=== PATIENT | female | born 1950 | race Caucasian/White ===

== ENCOUNTER → 2016-05-09 | Outpatient (CLI) | payer OTHER ==
[2016-05-09 13:58] LABS: ESTIMATED AVERAGE GLUCOSE 143 mg/dl; HA1C FLAG Normal (Normal)
[2016-05-09 14:45] LABS: CHOLESTEROL/HDL RATIO 3.8; THYROID STIMULATING HORMONE 4.62 uIu/ml (0.300-4.500)
== END | disposition home or self-care (01) ==
LOC: C.LAB1850 12:08
PROVIDERS: ATTEND Internal Medicine Endocrinology, Diabetes & Metabolism
DX: E11.9 Type 2 diabetes mellitus without complications (principal)

== ENCOUNTER → 2016-09-24 | Outpatient (CLI) | payer OTHER ==
[2016-09-24 13:44] LABS: ESTIMATED AVERAGE GLUCOSE 151 mg/dl; HA1C FLAG Normal (Normal)
[2016-09-24 14:19] LABS: CHOLESTEROL/HDL RATIO 3.6; THYROID STIMULATING HORMONE 1.32 uIu/ml (0.300-4.500)
== END | disposition home or self-care (01) ==
LOC: C.LAB1850 12:17
PROVIDERS: ATTEND Physician Assistant
DX: E11.9 Type 2 diabetes mellitus without complications (principal)

== ENCOUNTER → 2017-08-04 | Outpatient (CLI) | payer OTHER ==
[2017-08-05 10:26] LABS: HEMOGLOBIN A1C 8.6 % (4.5-5.6)
== END | disposition home or self-care (01) ==
LOC: C.LAB1850 15:06
PROVIDERS: ATTEND Physician Assistant
DX: E11.9 Type 2 diabetes mellitus without complications (principal); E78.5 Hyperlipidemia, unspecified

== ENCOUNTER 2024-01-06 10:37 | Inpatient (IN) ==
--- NOTE | 2024-01-05 08:37 | Anesthesiology Consultation ---
Date of Service January 05, 2024 Assessment & Plan (1) Encounter for pre-operative examination: Chart Review Chart Review: Acceptable Risk for Surgery (pending DOS labs ) and Patient NOT seen in Pre Admission Testing - Check CBC with diff and PRP stat DOS (not done preoperatively) - Check BSG AM DOS Patient with recent pRCA cardiac stent 09/04/23- on DAPT- denies SOB with stairs as of PAT nursing interview 12/29/23. Last seen by cardio 10/09/23- cardio aware of carotid disease and that patient following with Dr. Gonzalez. Discussed with Dr. Bah- due to nature of procedure- patient can proceed as scheduled -Ozempic instructions: Patient informed by PAT nursing to stop 7 days prior to surgery. Patient advised by PAT nursing to check with prescriber to see if alternative diabetic management changes recommended while holding Ozempic- if so, patient to call back to PAT to update chart and discuss if any further preop medication instructions needed. Last dose of Ozempic 12/24/23- will be off Ozempic x 13 days by DOS on 01/06/24 -Infectious Disease screening: Per PAT nursing assessment on 12/29/23. No known infectious disease contacts in past 10 days or current infectious disease symptoms. No recent travel outside the country. Seen by cardio 10/09/23= seen for follow up. Patient post [facility] 09/04/23 with pRCA cardiac stent. Patient with history of CAD, PAD, carotid stenosis, HLD, vertigo. Continue with DAPT x 1 year- will swtich to ASA and vascular dose Xarelto at that time. Patient will see Dr. Gonzalez in two weeks for carotid as well as PAD. Follow up in three months History Surgery Operation Date: 01/06/24 13:00 Proposed Procedures p Right Transcarotid Artery Revascularization - Sanya Gonzalez MD Height/Weight Height: 5 ft 6 in Weight: 100.698 kg Allergies Allergy/AdvReac Type Severity Reaction Status Date / Time metformin Allergy Nausea Verified 12/29/23 11:11 wheat Allergy throat Verified 12/29/23 11:11 tightness erythromycin base AdvReac Nausea Verified 12/29/23 11:11 Medications Home Medications Medication Instructions Recorded Confirmed Last Taken aspirin 81 mg tablet 81 mg PO QAM 12/07/18 12/29/23 Unknown cholecalciferol (vitamin D3) 50 2,000 units PO HS #1 cap 12/07/18 12/29/23 Unknown mcg (2,000 unit) capsule citalopram 20 mg tablet 20 mg PO HS 12/07/18 12/29/23 Unknown clopidogrel 75 mg tablet 75 mg PO QAM 12/07/18 12/29/23 Unknown lancets 25 gauge #100 ea 12/07/18 08/27/23 Unknown atenolol 25 mg tablet 12.5 mg PO BID 08/06/20 12/29/23 Unknown gabapentin 300 mg capsule 300 - 600 mg PO UD 07/15/21 12/29/23 Unknown potassium chloride 10 mEq 10 meq PO HS 07/15/21 12/29/23 Unknown capsule,extended release venlafaxine 37.5 mg 37.5 mg PO HS 07/31/22 12/29/23 Unknown capsule,extended release 24 hr magnesium oxide 800 mg PO Q2D 12/16/22 12/29/23 Unknown pen needle, diabetic 32 gauge x #500 ea 07/24/23 08/27/23 Unknown 5/32" (BD Ultra-Fine Rebeca Pen Needle) OneTouch Ultra Test (blood sugar #100 ea 08/18/23 08/27/23 Unknown diagnostic) blood-glucose sensor (Dexcom G7 08/27/23 08/27/23 Unknown Sensor device) fenofibrate nanocrystallized 145 145 mg PO HS 08/27/23 12/29/23 Unknown mg tablet insulin aspart U-100 100 unit/mL 1 sliding scale dose subcut .with 08/27/23 12/29/23 Unknown (3 mL) subcutaneous pen (Novolog meals #15 mL FlexPen U-100 Insulin aspart) levothyroxine 50 mcg tablet 50 mcg PO QAM 90 days #90 tabs 08/27/23 12/29/23 Unknown nitroglycerin 0.4 mg sublingual 0.4 mg sublingual UD PRN Chest Pain 08/27/23 12/29/23 Unknown tablet semaglutide 0.25 mg or 0.5 mg (2 0.5 mg (0.736 mL) subcut Q7D 30 11/25/23 12/29/23 Unknown mg/3 mL) subcutaneous pen injector days #3 mL (Ozempic) cyanocobalamin (vitamin B-12) 1,000 mcg PO HS 12/29/23 12/29/23 Unknown 1,000 mcg tablet (Vitamin B-12) insulin glargine 100 unit/mL (3 36 unit subcut HS 12/29/23 12/29/23 Unknown mL) subcutaneous pen (Basaglar KwikPen U-100 Insulin) losartan 50 mg-hydrochlorothiazide 1 tab PO HS 12/29/23 12/29/23 Unknown 12.5 mg tablet pantoprazole 40 mg tablet,delayed 40 mg PO HS 12/29/23 12/29/23 Unknown release rosuvastatin 40 mg tablet 40 mg PO HS 12/29/23 12/29/23 Unknown Past Medical History Medical History (Updated 01/05/24 @ 08:35 by Anabell Atkinson PA-C) Anxiety CAD (coronary artery disease) s/p mid RCA stent 2009 s/p stent to RCA 09/04/23 (also with moderate 50% LAD disease in mid vessel) Carotid artery disease Per 12/11/23 neck CTA "at least 90% stenosis with near occlusion involving the proximal cervical segments of the internal carotid arteries bilaterally, right greater than left." Depression Diabetes mellitus type 2, insulin dependent Diabetic peripheral neuropathy Dyslipidemia GERD (gastroesophageal reflux disease) History of paresthesia Hypertension PAD (peripheral artery disease) - carotid and lower extremity artery disease Subclinical hypothyroidism Past Surgical History Surgical History History of bilateral tubal ligation History of esophagogastroduodenoscopy (EGD) Hx laparoscopic cholecystectomy Hx of cardiac cath 05/09/09, "felt a burning feeling in chest/back," [facility] [place], x1 stent 09/04/23, abn stress test, [facility], x1 stent; f/u dr. davidson, ps cardio Hx of section Hx of colonoscopy Hx of heart artery stent 05/09/09, "felt a burning feeling in chest/back," [facility] [place], x1 stent 09/04/23, abn stress test, [facility], x1 stent; f/u dr. davidson, ps cardio Social History Smoking Status: Former smoker Do You Dip or Chew Tobacco: No Smoking End Date: years ago Hx Alcohol Use: No Hx Substance Use: No substance use type: does not use Testing Electrocardiogram Date: 10/09/23 Findings: + NSR @ (84bpm) Normal EKG per cardio Echocardiogram Date: 04/30/23 EF: 55-60% LV Function: normal Other Findings: + LVH (borderline/concentric) and + diastolic dysfunction (Grade I ) Unable to adequately estimate pulmonary artery pressure Stress Test Date: 04/30/23 Type: nuclear Based upon EKG criteria, this test is negative. Based upon the nuclear imaging findings there is inferior wall ischemia. It has changed from previous studies. Study is moderately abnormal (Had subsequent cardiac cath 09/04/23 (report unavailable) with placement of pRCA stent) Other Testing Neck CTA 12/11/23= Advanced atherosclerosis of the carotid bulbs results in high- grade narrowing of the proximal cervical segments bilaterally, right greater than left. Focal area of high-grade stenosis involves the V2 segment right vertebral artery at the level of the C4-C5 disc space, likely secondary to a lateral annular disc bulge.
--- NOTE | 2024-01-06 10:12 | History & Physical Report ---
Date of Service January 06, 2024 Assessment & Plan (1) Stenosis of right carotid artery: Plan: Patient admitted for a tcar. I have discussed the risks options and benefits of the procedure with the patient. The patient understands the risks options and benefits and agrees to the procedure. History of Present Illness Chief Complaint: Right internal carotid artery stenosis Primary Care Provider: Mahad Davis MD Ms. 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 Patient states that she developed pain in her low back and in her "sciatica" which then shoots down her legs when she is standing upright to ambulate. If she is at the grocery store and has a cart to lean on, she is able to finish her grocery shopping without any problems. She also admits some severe chronic numbness and tingling in her lower legs and feet which is clearly related to her diabetes control, as it is worse when her blood sugars are out of control and improved when they are controlled. She denies any discoloration of the feet or toes, wounds on the feet or toes, rest pain, or other concerns. She denies any symptoms of cerebrovascular insufficiency including amaurosis, unilateral extremity weakness numbness or tingling, difficulty speaking or swallowing, facial droop, sudden onset confusion. She also denies headache, fever, chest pain, shortness of breath, abdominal pain, nausea, vomiting, other concerns. 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 Allergies Allergy/AdvReac Type Severity Reaction Status Date / Time metformin Allergy Nausea Verified 12/29/23 11:11 wheat Allergy throat Verified 12/29/23 11:11 tightness erythromycin base AdvReac Nausea Verified 12/29/23 11:11 Home Medications Medication Instructions Recorded Confirmed Type aspirin 81 mg tablet 81 mg PO QAM 12/07/18 12/29/23 History cholecalciferol (vitamin D3) 50 2,000 units PO HS #1 cap 12/07/18 12/29/23 History mcg (2,000 unit) capsule citalopram 20 mg tablet 20 mg PO HS 12/07/18 12/29/23 History clopidogrel 75 mg tablet 75 mg PO QAM 12/07/18 12/29/23 History lancets 25 gauge #100 ea 12/07/18 08/27/23 History atenolol 25 mg tablet 12.5 mg PO BID 08/06/20 12/29/23 History gabapentin 300 mg capsule 300 - 600 mg PO UD 07/15/21 12/29/23 History potassium chloride 10 mEq 10 meq PO HS 07/15/21 12/29/23 History capsule,extended release venlafaxine 37.5 mg 37.5 mg PO HS 07/31/22 12/29/23 History capsule,extended release 24 hr magnesium oxide 800 mg PO Q2D 12/16/22 12/29/23 History pen needle, diabetic 32 gauge x #500 ea 07/24/23 08/27/23 Rx 5/32" (BD Ultra-Fine Rebeca Pen Needle) OneTouch Ultra Test (blood sugar #100 ea 08/18/23 08/27/23 Rx diagnostic) blood-glucose sensor (Dexcom G7 08/27/23 08/27/23 History Sensor device) fenofibrate nanocrystallized 145 145 mg PO HS 08/27/23 12/29/23 History mg tablet insulin aspart U-100 100 unit/mL 1 sliding scale dose subcut .with 08/27/23 12/29/23 Rx (3 mL) subcutaneous pen (Novolog meals #15 mL FlexPen U-100 Insulin aspart) levothyroxine 50 mcg tablet 50 mcg PO QAM 90 days #90 tabs 08/27/23 12/29/23 Rx nitroglycerin 0.4 mg sublingual 0.4 mg sublingual UD PRN Chest Pain 08/27/23 12/29/23 History tablet semaglutide 0.25 mg or 0.5 mg (2 0.5 mg (0.736 mL) subcut Q7D 30 11/25/23 12/29/23 Rx mg/3 mL) subcutaneous pen injector days #3 mL (Ozempic) cyanocobalamin (vitamin B-12) 1,000 mcg PO HS 12/29/23 12/29/23 History 1,000 mcg tablet (Vitamin B-12) insulin glargine 100 unit/mL (3 36 unit subcut HS 12/29/23 12/29/23 History mL) subcutaneous pen (Basaglar KwikPen U-100 Insulin) losartan 50 mg-hydrochlorothiazide 1 tab PO HS 12/29/23 12/29/23 History 12.5 mg tablet pantoprazole 40 mg tablet,delayed 40 mg PO HS 12/29/23 12/29/23 History release rosuvastatin 40 mg tablet 40 mg PO HS 12/29/23 12/29/23 History Past Med/Surg History Problem List (Updated 01/06/24 @ 10:12 by Sanya Gonzalez MD) Stenosis of right carotid artery Encounter for pre-operative examination Albuminuria Depression Type 2 diabetes mellitus with insulin therapy Paresthesias Arteriosclerotic cardiovascular disease (Acute) Diabetic peripheral neuropathy (Acute) Dyslipidemia (Acute) Hypertension (Acute) Obesity (Acute) Subclinical hypothyroidism (Acute) Vitamin D deficiency (Acute) Medical History CAD (coronary artery disease) s/p mid RCA stent 2009 s/p stent to RCA 09/04/23 (also with moderate 50% LAD disease in mid vessel) PAD (peripheral artery disease) - carotid and lower extremity artery disease Carotid artery disease Per 12/11/23 neck CTA "at least 90% stenosis with near occlusion involving the proximal cervical segments of the internal carotid arteries bilaterally, right greater than left." History of paresthesia GERD (gastroesophageal reflux disease) Subclinical hypothyroidism Hypertension Dyslipidemia Diabetic peripheral neuropathy Anxiety Diabetes mellitus type 2, insulin dependent Depression Surgical History History of bilateral tubal ligation Hx of section Hx laparoscopic cholecystectomy History of esophagogastroduodenoscopy (EGD) Hx of colonoscopy Hx of heart artery stent 05/09/09, "felt a burning feeling in chest/back," [facility] [place], x1 stent 09/04/23, abn stress test, [facility], x1 stent; f/u dr. davidson, ps cardio Hx of cardiac cath 05/09/09, "felt a burning feeling in chest/back," [facility] [place], x1 stent 09/04/23, abn stress test, [facility], x1 stent; f/u dr. 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 She is alert and oriented but in focal deficits. Her head is normocephalic and atraumatic. Her right carotid does demonstrate a bruit, her left does not. Her heart is regular, her lungs are decreased throughout but are clear. Her abdomen is soft and nontender with active bowel sounds in all 4 quadrants. Brachial and radial pulses are +3. Femoral pulses are +3. Right DP pulses +1, PT pulses +2. Left DP and PT pulses are +1. She has brisk capillary refill and no sign of distal ischemia. She has trace to 1+ edema at the ankles.
[~2024-01-06 10:37] MED LIST: DEXAMETHASONE SOD INJ 4 MG/ML VIAL ONE; GLYCOPYRROLATE 0.2 MG/ML VIAL ONE; HEPARIN SOD (PORCINE) 1000 UNIT/ML ONE; LIDOCAINE 2% 2 ML VIAL/AMP(20MG/ML) INFIL ONE; MIDAZOLAM HCL 1 MG/ML 2ML VIAL ONE; NITROGLYCERIN 5 MG/ML 10 ML VIAL ONE; ONDANSETRON INJ 2 MG/ML 2 ML VIAL ONE; PROPOFOL IV EMULSION 10 MG/ML 20 ML VIAL IV ONE; PROTAMINE SULFATE 10 MG/ML 5 ML VIAL IV ONE; ROCURONIUM BROMIDE 10 MG/ML 5 ML VIAL IV ONE; SUGAMMADEX SODIUM 200 MG/2 ML VIAL IV ONE; fentaNYL citrate PF 100 MCG/2 ML VIAL ONE
[2024-01-06 11:26] LABS: Basophils # (auto) 0.06 K/uL (0.00-0.20); Basophils % (auto) 0.5 %; Eosinophils # (auto) 0.23 K/uL (0.00-0.50); Eosinophils % (auto) 1.8 %; Hematocrit (blood only) 42.7 % (37.0-47.0); Hemoglobin 14.1 g/dl (12.0-16.0); Immature Granulocytes # (auto) 0.04 K/uL (0.01-0.20); Immature Granulocytes % (auto) 0.3 %; Lymphocytes # (auto) 4.41 K/uL (1.20-3.40); Lymphocytes % (auto) 33.9 %; Mean Corpuscular Hemoglobin 27.9 pg (25.0-34.0); Mean Corpuscular Volume 84.6 fL (80.0-100.0); Mean Platelet Volume 11.9 fL (9.4-12.4); Monocytes # (auto) 0.75 K/uL (0.11-0.59); Monocytes % (auto) 5.8 %; Neutrophils % (auto) 57.7 %; Platelet Count 309 K/uL (130-400); RDW Coefficient of Variation 14.2 % (11.5-14.5); RDW Standard Deviation 43.5 fL (36.4-46.3); Red Blood Count 5.05 M/uL (4.20-5.40); White Blood Count 12.99 K/ul (4.8-10.8)
[2024-01-06 11:34] LABS: BUN Creatinine Ratio 15.4 (10-20); Calcium 9.9 mg/dl (8.6-10.3); Creatinine Clr Calc Pharmacy 80.9 ml/min
[2024-01-06 11:56] LABS: Partial Thromboplastin Ratio 1.1; Partial Thromboplastin Time 29 Seconds (21-31); Prothrombin Time 10.4 Seconds (9.0-12.0)
[2024-01-06] MEDS: LACTATED RINGER'S 1,000 ML IV SCH ×2 (11:59→17:27)
--- NOTE | 2024-01-06 12:34 | XRay Report ---
XR chest 2V PA/lateral HISTORY: 73 years-old Female order preop preoperative exam COMPARISON: None TECHNIQUE: PA and lateral views of the chest FINDINGS: Cardiomediastinal and hilar silhouettes are within normal limits. No pneumothorax, pleural effusion o r airspace consolidation. Cholecystectomy. Degenerative changes of the shoulders and spine. IMPRESSION: No acute process. ACT 112: Negative or not required by law. The above report was generated using voice recognition software. It may contain grammatical, syntax o r spelling errors. Electronically signed by: Epi Sumner M.D. 01/06/2024 12:32 PM
--- NOTE | 2024-01-06 13:13 | History & Physical Bridge Note ---
Date of Service January 06, 2024 History & Physical Bridge Note I have examined the patient, reviewed the History & Physical and in the interval since the performance of the History & Physical I have noted the following changes of clinical significance: no changes noted
[2024-01-06] MEDS: ceFAZolin 2000MG 2,000 MG/15 ML SYR IV SCH ×2 (13:41→19:56)
[2024-01-06] MEDS ORDERED: fentaNYL citrate PF 100 MCG/2 ML VIAL ONE (14:12)
[2024-01-06] MEDS ORDERED: ePHEDrine sulfate 50 MG/5 ML SYR ONE (14:18)
[2024-01-06] MEDS: THROMBIN FOR SOLN 20000 UNIT KIT ONE (14:55)
[2024-01-06] MEDS: VISIPAQUE IV PRN (14:56)
[2024-01-06] MEDS: GELATIN SPONGE SZ 100 ONE (14:56)
[2024-01-06] MEDS: ceFAZolin 330 MG/ML 1 GM VIAL ONE (14:57)
[2024-01-06] MEDS: SURGICEL ABSORB HEMOSTAT 2IN X 14IN TOP ONE (14:57)
[2024-01-06] MEDS: BUPIVACAINE/EPINEPHRINE 0.5% MPF 1:200,000 30 ML VIAL ONE (15:00)
--- NOTE | 2024-01-06 15:07 | Procedure Note ---
Angiogram Post Procedure Fluoroscopy Time (minutes): 3.3 Radiation (mGy): 37 Contrast: 15 Post Operative Report Pre & Post Diagnosis Operation Date: 01/06/24 13:00 Pre-Op Diagnosis: Right Internal Carotid Stenosis Post-Op Diagnosis: Right Internal Carotid Stenosis I identified the patient and participated in the time-out.: Yes Procedure Operation Date: 01/06/24 13:00 Actual Procedures p Right Transcarotid Artery Revascularization(Right), Ultrasound localization of right common femoral vein - Sanya Gonzalez MD Surgeon Sanya Gonzalez MD Top Tile Decorator Nicolle,PAC Estimated Blood Loss 10 Findings Consistent with Post-Op Diagnosis Specimens none Anesthesia Type General Complications none Disposition Accompanied Patient To Recovery: No Disposition: Recovery Room Indications This 73-year-old female was found to have severe bilateral internal carotid artery stenosis at their origins. Intervention was recommended. We went over the risk option benefits of endarterectomy versus TCAR and she elected to go ahead with a TCAR approach. I have discussed the risks options and benefits of the procedure with the patient. The patient understands the risks options and benefits and agrees to the procedure. Description of Procedure The patient was taken to the operating room and placed in supine position. After general anesthesia was accomplished the groins and right side of the neck and chest were prepped and draped in a sterile manner. Timeout was performed and the patient was identified. A transverse incision was made just above the clavicle between the heads of the sternocleidomastoid. This was carried down to where the common carotid artery was identified. It was isolated and slung with an umbilical tape. A U-stitch of 5-0 Prolene was placed on the common carotid artery. It was given 9000units of heparin at that time. Ultrasound was then used to localize the right common femoral vein. The vein was patent and compressed easily. Under ultrasound guidance the right common femoral vein was punctured and the venous sheath was inserted. This was aspirated and flushed with heparinized saline. An ACT at that time was 311. Using micropuncture technique the common carotid artery was punctured using a tunneling technique. The micro sheath was inserted to 3 cm. Injection was then done showing the bifurcation. There was a significant lesion seen at the origin of the internal carotid artery on the right side. We reinserted the micro wire and passed it into the external carotid. We then advanced the dilator and sheath into the external carotid. The dilater and sheath were removed. We then inserted the J-wire into the external carotid artery. The TCAR sheath was inserted without the endplate. Once it was in place and held against the artery it was sutured to the chest wall and the incision edge. We then flushed the tubing appropriately. The venous return tubing was clamped onto the TCAR sheath. It was flushed through and then attached to the venous inflow sheath in the right groin. The sheath was checked for flow. The common carotid artery was then clamped. Flow through the venous return sheath was again checked and found to be adequate. We then inserted a 5 x 25 balloon backloaded on the wire. The wire was passed through the lesion into the petrous portion of the internal carotid. The 6 balloon was then advanced to the lesion. The lesion was then predilated with the 6 mm balloon. The balloon was removed. We then inserted the 8/6 x 30 stent. This was deployed across the lesion without difficulty. The catheter was removed. The carotid was allowed to go 2 minutes with flow reversal. Completion angiogram was done at that time which showed no residual stenosis. The wire was removed and the common carotid artery was unclamped. The venous return tubing was clamped and removed from the TCAR sheath. The blood was allowed to flow back into the venous system. The TCAR sheath was then removed and the 5-0 Prolene suture securely tied. Hemostasis was noted of the puncture site. The patient was given 25 mg of protamine. Another ACT was performed which was 126. The sheath was pulled from the groin and pressure was applied. Wound was irrigated with Ancef solution. Adequate hemostasis was obtained of the wound. Once this was noted the wound was closed in usual fashion using a 3-0 Vicryl suture for the subcutaneous layer and a 4-0 subcuticular Vicryl suture for the skin edges. Dermabond was used for dressing. The patient left the operation room in satisfactory condition and tolerated the procedure well. All needle and sponge counts were correct at the end of the procedure. Vero Licea Pac assisted due to lack of resident availability and was necessary for positioning, draping, retraction, wound closure deep layers, subcutaneous tissue, and skin closure and was necessary for assisting with the case. I attest to the content of the Intraoperative Record and any orders documented therein. Any exceptions are noted below.
[2024-01-06] MEDS ORDERED: ONDANSETRON INJ 2 MG/ML 2 ML VIAL IV PRN ×2 (15:42→16:49)
[2024-01-06] MEDS ORDERED: PHENYLEPHRINE 100MCG/ML 5ML SYR IV PRN (15:42)
[2024-01-06] MEDS ORDERED: fentaNYL citrate PF 100 MCG/2 ML VIAL IV PRN (15:42)
[2024-01-06] MEDS ORDERED: ePHEDrine sulfate 50 MG/ML AMP IV PRN (15:42)
[2024-01-06] MEDS ORDERED: ATROPINE SULFATE 0.1 MG/ML 10ML SYR IV PRN (15:42)
[2024-01-06] MEDS: PHENYLEPHRINE/NSS 25 MG/250 ML BAG IV PRN ×2 (15:48→17:39)
--- NOTE | 2024-01-06 16:22 | Anesthesiology Progress Note ---
Date of Service January 06, 2024 Anesthesia Post Procedure Vital Signs Vital Signs: Temp Pulse Pulse Resp BP Pulse Ox O2 Del Method 01/06/24 16:10 57 L 19 128/47 L 93 Room Air 01/06/24 16:00 55 L 18 119/35 L 94 Room Air 01/06/24 15:50 72 16 77/37 L 93 Room Air 01/06/24 15:40 71 19 88/35 L 96 Oxymask 01/06/24 15:30 60 20 127/45 L 100 Oxymask 01/06/24 15:23 36.5 C 84 22 87/31 L 95 Oxymask 01/06/24 11:17 36.4 C L 79 18 149/83 H 97 Room Air O2 Flow Rate 01/06/24 16:10 01/06/24 16:00 01/06/24 15:50 01/06/24 15:40 2 01/06/24 15:30 5 01/06/24 15:23 5 01/06/24 11:17 Pain Intensity Right Neck: Pain Intensity: 3 Transfer of Care Handoff Completed per policy Notes Mental Status: alert / awake / arousable and participated in evaluation Patient Amnestic to Procedure: Yes Nausea / Vomiting: adequately controlled Pain: adequately controlled Airway Patency, RR, SpO2: stable & adequate BP & HR: stable & adequate and see Notes below Hydration State: stable & adequate Anesthetic Complications: no major complications apparent and Pt Satisfied with anesthetic care Notes: Patient requiring phenylephrine infusion to maintain appropriate post TCAR blood pressure. She is conversant and c/o mild neck pain. Otherwise she states she is doing well. Appropriate for transfer to ICU.
[2024-01-06] MEDS ORDERED: oxyCODONE/ACETAMINOPHEN 5mg/325mg TAB PO PRN (16:49)
[2024-01-06] MEDS ORDERED: NITROGLYCERIN SL 0.4 MG/TAB TAB SL PRN (16:49)
[2024-01-06] MEDS ORDERED: STAT IV Infusion **Titration per Protocol STA (16:49)
[2024-01-06] MEDS ORDERED: NON-FORMULARY MEDICATION (Semaglutide [Ozempic] 0.25 mg or 0.5 mg (2 mg/3 mL) pen injector SQ SCH (16:49)
--- NOTE | 2024-01-06 16:54 | Critical Care Consultation ---
Date of Consultation January 06, 2024 Assessment & Plan (1) Stenosis of right carotid artery: (2) Type 2 diabetes mellitus with insulin therapy: (3) Hypertension: Plan Impression: 73-year-old female with asymptomatic carotid stenosis status post TCAR Recommendations: 1. Carotid stenosis status post TCAR: Management per vascular surgery. Blood pressure goals per vascular surgery. 2. Hypertension: On a low-dose of Rafael-Synephrine currently. Weaned off as tolerated. Holding antihypertensives for now but will restart as tolerated by blood pressure. 3. Diabetes: Continue outpatient medications. Patient's remaining critical care issues have been well addressed by the vascular surgery service. Will continue to follow in the ICU overnight. Feel free to contact us with questions or concerns History of Present Illness Attending Physician: Sanya Gonzalez MD History of Present Illness Asked by vascular surgery to assist in evaluation management of this patient's status post TCAR. History is obtained from review the electronic medical record and discussion with the patient. Patient is a 73-year-old female who underwent screening carotid ultrasound by her candy maker. She is found to have bilateral carotid stenosis more significant on the right. She was taken to the OR today for TCAR which was accomplished without difficulty. She is in the PACU currently awake and alert. Her pain is well-controlled. She was put on a low-dose of Rafael-Synephrine to maintain blood pressure. She denies any neurological complaints Allergies Allergy/AdvReac Type Severity Reaction Status Date / Time metformin Allergy Nausea Verified 01/06/24 11:11 wheat Allergy throat Verified 01/06/24 11:11 tightness erythromycin base AdvReac Nausea Verified 01/06/24 11:11 Home Medications Medication Instructions Recorded Confirmed Type aspirin 81 mg tablet 81 mg PO QAM 12/07/18 01/06/24 History cholecalciferol (vitamin D3) 50 2,000 units PO HS #1 cap 12/07/18 01/06/24 History mcg (2,000 unit) capsule citalopram 20 mg tablet (Celexa) 20 mg PO HS 12/07/18 01/06/24 History lancets 25 gauge #100 ea 12/07/18 08/27/23 History atenolol 25 mg tablet 12.5 mg PO BID 08/06/20 01/06/24 History gabapentin 300 mg capsule 300 - 600 mg PO TID 07/15/21 01/06/24 History potassium chloride 10 mEq 10 meq PO HS 07/15/21 01/06/24 History capsule,extended release venlafaxine 37.5 mg 37.5 mg PO HS 07/31/22 01/06/24 History capsule,extended release 24 hr (Effexor XR) magnesium oxide 800 mg PO Q2D 12/16/22 01/06/24 History pen needle, diabetic 32 gauge x #500 ea 07/24/23 08/27/23 Rx 5/32" (BD Ultra-Fine Rebeca Pen Needle) OneTouch Ultra Test (blood sugar #100 ea 08/18/23 08/27/23 Rx diagnostic) blood-glucose sensor (Calleoo G7 08/27/23 08/27/23 History Sensor device) fenofibrate nanocrystallized 145 145 mg PO HS 08/27/23 01/06/24 History mg tablet insulin aspart U-100 100 unit/mL 1 sliding scale dose subcut .with 08/27/23 01/06/24 Rx (3 mL) subcutaneous pen (Novolog meals #15 mL FlexPen U-100 Insulin aspart) levothyroxine 50 mcg tablet 50 mcg PO QAM 90 days #90 tabs 08/27/23 01/06/24 Rx nitroglycerin 0.4 mg sublingual 0.4 mg sublingual UD PRN Chest Pain 08/27/23 01/06/24 History tablet semaglutide 0.25 mg or 0.5 mg (2 0.5 mg (0.736 mL) subcut Q7D 30 11/25/23 01/06/24 Rx mg/3 mL) subcutaneous pen injector days #3 mL (Ozempic) cyanocobalamin (vitamin B-12) 1,000 mcg PO HS 12/29/23 01/06/24 History 1,000 mcg tablet (Vitamin B-12) insulin glargine 100 unit/mL (3 36 unit subcut HS 12/29/23 01/06/24 History mL) subcutaneous pen (Basaglar KwikPen U-100 Insulin) losartan 50 mg-hydrochlorothiazide 1 tab PO HS 12/29/23 01/06/24 History 12.5 mg tablet pantoprazole 40 mg tablet,delayed 40 mg PO HS 12/29/23 01/06/24 History release rosuvastatin 40 mg tablet (Crestor) 40 mg PO HS 12/29/23 01/06/24 History ticagrelor 90 mg tablet (Brilinta) 90 mg PO BID 01/06/24 01/06/24 History Patient History Medical History CAD (coronary artery disease) s/p mid RCA stent 2009 s/p stent to RCA 09/04/23 (also with moderate 50% LAD disease in mid vessel) PAD (peripheral artery disease) - carotid and lower extremity artery disease Carotid artery disease Per 12/11/23 neck CTA "at least 90% stenosis with near occlusion involving the proximal cervical segments of the internal carotid arteries bilaterally, right greater than left." History of paresthesia GERD (gastroesophageal reflux disease) Subclinical hypothyroidism Hypertension Dyslipidemia Diabetic peripheral neuropathy Anxiety Diabetes mellitus type 2, insulin dependent Depression Surgical History History of bilateral tubal ligation Hx of section Hx laparoscopic cholecystectomy History of esophagogastroduodenoscopy (EGD) Hx of colonoscopy Hx of heart artery stent 05/09/09, "felt a burning feeling in chest/back," [facility], x1 stent 09/04/23, abn stress test, [facility], x1 stent; f/u dr. davidson, [facility] cardio Hx of cardiac cath 05/09/09, "felt a burning feeling in chest/back," [facility] [place], x1 stent 09/04/23, abn stress test, [facility], x1 stent; f/u dr. davidson, [facility] cardio Social History Smoking Status: Former smoker Smoking End Date: years ago; Second Hand Exposure: No; Do You Dip or Chew Tobacco: No; Tobacco Cessation Education Requested by Patient: No Hx Alcohol Use: No Hx Substance Use: No Preferred Language: Citizen Of The [place] Communication Ability: Effective Gluer Machine Operator Required: No Beliefs That Will Affect Care: None Current Living Situation: Spouse Other Information That Helps Us Care for You: No Feels Safe at Home: Yes Safety Concerns: Feels Safe At This Time Assistive Devices: Glasses Review of Systems Review of Systems: All systems reviewed & are unremarkable except as noted in Subjective Physical Exam Constitutional: WD/WN, vitals as above Neck: trachea midline, no thyromegaly Respiratory: normal respiratory effort, lungs clear to auscultation Cardiovascular: RRR, no murmur, no edema Gastrointestinal (Abdomen): normal bowel sounds, soft, nontender, no hepatosplenomegaly Musculoskeletal: Extremities: extremities normal to inspection Skin: no rashes, warm and dry Neurologic: Nonfocal exam Lymphatic: no cervical lymphadenopathy Results & Data Results & Data Vital Signs (Past 12 Hours) Vital Signs Temp Pulse Pulse Resp BP Pulse Ox O2 Del Method 01/06/24 16:10 57 L 19 128/47 L 93 Room Air 01/06/24 16:00 55 L 18 119/35 L 94 Room Air 01/06/24 15:50 72 16 77/37 L 93 Room Air 01/06/24 15:40 71 19 88/35 L 96 Oxymask 01/06/24 15:30 60 20 127/45 L 100 Oxymask 01/06/24 15:23 36.5 C 84 22 87/31 L 95 Oxymask 01/06/24 11:17 36.4 C L 79 18 149/83 H 97 Room Air O2 Flow Rate 01/06/24 16:10 01/06/24 16:00 01/06/24 15:50 01/06/24 15:40 2 01/06/24 15:30 5 01/06/24 15:23 5 01/06/24 11:17 Critical Care Results & Data Vital Signs (Past 12 Hours) Vital Signs Temp Pulse Pulse Resp BP Pulse Ox O2 Del Method 01/06/24 16:10 57 L 19 128/47 L 93 Room Air 01/06/24 16:00 55 L 18 119/35 L 94 Room Air 01/06/24 15:50 72 16 77/37 L 93 Room Air 01/06/24 15:40 71 19 88/35 L 96 Oxymask 01/06/24 15:30 60 20 127/45 L 100 Oxymask 01/06/24 15:23 36.5 C 84 22 87/31 L 95 Oxymask 01/06/24 11:17 36.4 C L 79 18 149/83 H 97 Room Air O2 Flow Rate 01/06/24 16:10 01/06/24 16:00 01/06/24 15:50 01/06/24 15:40 2 01/06/24 15:30 5 01/06/24 15:23 5 01/06/24 11:17 Lab & Micro Results (Past 24 Hours) RBC 5.05 M/uL (4.20-5.40) 01/06/24 WBC 12.99 K/ul (4.8-10.8) H 01/06/24 Hgb 14.1 g/dl (12.0-16.0) 01/06/24 Hct 42.7 % (37.0-47.0) 01/06/24 MCV 84.6 fL (80.0-100.0) 01/06/24 MCH 27.9 pg (25.0-34.0) 01/06/24 MCHC 33.0 g/dL (32.0-36.0) 01/06/24 RDW Standard Deviation 43.5 fL (36.4-46.3) 01/06/24 RDW Coefficient of Variation 14.2 % (11.5-14.5) 01/06/24 Plt Count 309 K/uL (130-400) 01/06/24 MPV 11.9 fL (9.4-12.4) 01/06/24 Neutrophils (%) (Auto) 57.7 % 01/06/24 Lymphocytes (%) (Auto) 33.9 % 01/06/24 Monocytes # (Auto) 0.75 K/uL (0.11-0.59) H 01/06/24 Eosinophils # (Auto) 0.23 K/uL (0.00-0.50) 01/06/24 Immature Granulocyte % (Auto) 0.3 % 01/06/24 Neutrophils # (Auto) 7.50 K/uL (1.40-6.50) H 01/06/24 Lymphocytes # (Auto) 4.41 K/uL (1.20-3.40) H 01/06/24 Monocytes # (Auto) 0.75 K/uL (0.11-0.59) H 01/06/24 Eosinophils # (Auto) 0.23 K/uL (0.00-0.50) 01/06/24 Basophils # (Auto) 0.06 K/uL (0.00-0.20) 01/06/24 Immature Granulocyte # (Auto) 0.04 K/uL (0.01-0.20) 4 Na 141 mmol/L (136-145) 01/06/24 K 4.0 mmol/L (3.5-5.1) 01/06/24 Cl 106 mmol/L (98-107) 01/06/24 CO2 25 mmol/L (21-32) 01/06/24 Anion Gap 10 (3-11) 01/06/24 BUN 12 mg/dl (6-23) 01/06/24 Creatinine 0.78 mg/dl (0.6-1.2) 01/06/24 BUN/Creatinine Ratio 15.4 (10-20) 01/06/24 Glu 108 mg/dl (70-99(Fasting)) H 01/06/24 Ca 9.9 mg/dl (8.6-10.3) 01/06/24 Calcium Level 9.9 mg/dl (8.6-10.3) 01/06/24 11:00 Prothromb Time International Ratio 1.0 (0.9-1.1) 01/06/24 11:0 0 Diagnostic Findings (Past 24 Hours) Chest X-Ray 01/06/24 05:00 XR chest 2V PA/lateral HISTORY: 73 years-old Female order preop preoperative exam COMPARISON: None TECHNIQUE: PA and lateral views of the chest FINDINGS: Cardiomediastinal and hilar silhouettes are within normal limits. No pneumothorax, pleural effusion or airspace consolidation. Cholecystectomy. D egenerative changes of the shoulders and spine. IMPRESSION: No acute process. ACT 112: Negative or not required by law. The above report was generated using voice recognition software. It may contain grammatical, syntax or spelling errors. Electronically signed by: Epi Sumner M.D. 01/06/2024 12:32 PM I & O Totals 24 Hours 01/05/24 01/06/24 01/07/24 06:59 06:59 06:59 Intake Total 900 / 900 Output Total Balance 890 / 890 Cumulative 12/28/23 09:06 thru 01/06/24 16:18 Intake Total 900 Output Total 10 Balance 890 RT Ventilator Mngmt (Last Documented) Ventilator Ordered Settings Respiratory Rate 19 01/06/24 16:10 Ventilator - PT Measurements Respiratory Rate 19 Coding Level of Care Code 41993 IN/OBS CONSULT LVL 3,45M Diagnoses Stenosis of right carotid artery I65.21 Type 2 diabetes mellitus with insulin therapy E11.9; Z79.4 Essential hypertension I10 Hypertension type: essential hypertension (3) Hypertension Hypertension type: essential hypertension Qualified Code(s): I10 - Essential (primary) hypertension
[2024-01-06] MEDS ORDERED: GLUCAGON FOR INJ 1 MG VIAL SQ PRN (18:00)
[2024-01-06] MEDS ORDERED: GLUCOSE 10 TAB/TUBE PO PRN (18:00)
[2024-01-06] MEDS ORDERED: DEXTROSE 50% 50 ML SYRINGE IV PRN (18:00)
[2024-01-06] MEDS ORDERED: GLUCOSE 40% GEL 15 GM TUBE PO PRN (18:00)
[2024-01-06] MEDS ORDERED: CARBOHYDRATES FOR HYPOGLYCEMIA PO PRN (18:00)
[2024-01-06] MEDS: INSULIN ASPART PER UNIT CHARGE SC SCH (18:09)
[2024-01-06] MEDS: ATENOLOL 25 MG TABLET PO SCH (19:21)
[2024-01-06] MEDS: LOSARTAN/HCTZ 50/12.5MG TAB PO SCH (19:26)
[2024-01-06] MEDS: TICAGRELOR 90 MG TAB PO SCH (19:45)
[2024-01-06] MEDS: VENLAFAXINE HCL XR 37.5 MG CAPXR PO SCH (19:45)
[2024-01-06] MEDS: ROSUVASTATIN CALCIUM 20 MG TAB PO SCH (19:46)
[2024-01-06] MEDS: GABAPENTIN 300 MG CAP PO SCH (19:47)
[2024-01-06] MEDS: CYANOCOBALAMIN (B-12) 500 MCG TABLET PO SCH (19:48)
[2024-01-06] MEDS: PANTOprazole 40 MG TAB PO SCH (19:49)
[2024-01-06] MEDS: FENOFIBRATE NANOCRYSTALLIZED 145 MG TABLET PO SCH (19:49)
[2024-01-06] MEDS: CITALOPRAM 20 MG TAB PO SCH (19:49)
[2024-01-06] MEDS: CHOLECALCIFEROL 25 MCG (1000 UNITS) TAB PO SCH (19:50)
[2024-01-06] MEDS: LANTUS PER UNIT CHARGE SQ SCH (20:10)
[2024-01-06] MEDS: POTASSIUM CHLORIDE 10 MEQ TABCR PO SCH (20:11)
[2024-01-06] MEDS: ACETAMINOPHEN 325 MG TAB PO PRN (20:30)
--- OUTSIDE RECORDS SUMMARY | 2024-01-06 21:19 | External Medical Summary | Continuity of Care Document ---
Author Name Unknown Organization [facility] [address] [place], [place] [id number] Care Team Providers Care Executive Services Administrator Name Role Phone Mahad Davis Primary Care Physician [phone] [id number] Date(s): 01/01/24 - 01/01/24 [facility] [address] [facility] [address] [facility] [address] [place], [place] [phone] Encounter Diagnosis Occlusion and stenosis of bilateral carotid arteries(Final) - Discharge Disposition: Home or Self Care Attending Physician: MD Gonzalez Eugene J Referring Physician: MD Gonzalez Eugene J Allergies, Adverse Reactions, Alerts Substance Criticality Severity Reaction Reaction Severity Status erythromycin vomiting Active Glucophage vomiting Active wheat 1 weird throat feeling Active 1can tolerate small amounts. Medications aspirin 81 mg oral delayed release tablet Start: 10/09/23 10:54:00 AM EDT, 1 tab, PO, Daily Start Date: 10/09/23 Status: Ordered atenolol 25 mg oral tablet Start: 10/09/23 10:55:00 AM EDT, 1/2 tab, PO, bid Start Date: 10/09/23 Status: Ordered Basaglar KwikPen 100 units/mL subcutaneous solution inject 40 units subcutaneously once daily Start Date: 10/09/23 Status: Ordered CeleXA 20 mg oral tablet Start: 10/09/23 10:57:00 AM EDT, 1 tab, PO, Daily Start Date: 10/09/23 Status: Ordered fenofibrate 145 mg oral tablet 1 tab, PO, Daily, take 1 tablet by mouth once daily Start Date: 10/09/23 Status: Ordered gabapentin 300 mg oral capsule take 2 capsules by mouth IN THE MORNING 1 AT NOON and 2 at bedtime Start Date: 10/09/23 Status: Ordered HumaLOG KwikPen 100 units/mL injectable solution Start: 10/09/23 10:57:00 AM EDT, See Instructions, sliding scale Start Date: 10/09/23 Status: Ordered Hyzaar 50 mg-12.5 mg oral tablet Start: 10/09/23 10:58:00 AM EDT, 1 tab, PO, Daily Start Date: 10/09/23 Status: Ordered Klor-Con 10 oral tablet, extended release Start: 10/09/23 10:58:00 AM EDT, 1 tab, PO, Daily Start Date: 10/09/23 Status: Ordered levothyroxine 50 mcg (0.05 mg) oral tablet Start: 10/09/23 10:59:00 AM EDT, 1 tab, PO, Daily Start Date: 10/09/23 Status: Ordered nitroglycerin 0.4 mg sublingual tablet Start: 10/09/23 11:01:00 AM EDT, 1 tab, SL, q5min, Disp# 100 tab, PRN: as needed for chest pain Start Date: 10/09/23 Status: Ordered Ozempic (0.25 mg or 0.5 mg dose) 2 mg/3 mL subQ pen Start: 10/09/23 11:04:00 AM EDT, 0.5 mg, subQ, q7days, Disp# 9 mL, Supply Start Date: 10/09/23 Status: Ordered Plavix 75 mg oral tablet Start: 10/09/23 11:01:00 AM EDT, 1 tab, PO, ONCE Start Date: 10/09/23 Status: Ordered Protonix 20 mg oral delayed release tablet Start: 10/09/23 11:01:00 AM EDT, 1 tab, PO, Daily Start Date: 10/09/23 Status: Ordered rosuvastatin 40 mg oral tablet Start: 10/09/23 11:00:00 AM EDT, 1 tab, PO, qhs Start Date: 10/09/23 Status: Ordered Vitamin D3 50 mcg (2000 intl units) oral tablet Start: 10/09/23 11:02:00 AM EDT, 1 tab, PO, Daily Start Date: 10/09/23 Status: Ordered Problem List Condition Confirmation Course Effective Dates Status H ealth Status Informant Bilateral carotid artery stenosis Confirmed Active Coronary artery disease Confirmed Active GERD (gastroesophageal reflux disease) Confirmed Active Hyperlipidemia Confirmed Active HTN (hypertension) Confirmed Active Hypothyroid Confirmed Active PAD (peripheral artery disease) Confirmed Active Type 2 diabetes mellitus Confirmed Active Vertigo Confirmed Active Results Laboratory List Name Date Platelet Function (P2Y12 Receptor) (PLT FUNCTION P2Y12) 01/01/24 Most recent to oldest [Reference Range]: 1 P2Y12 Platelet Function [194-418 PRU] 19 8 PRU 1 (01/01/24 12:12 PM) 1Result Comment: PRU reference range is 194-418 (healthy adults, no drug treatment). Post Drug Results: Lower PRU levels are expected following treatment with antiplatelet drugs. Post-treatment values are usually below the stated reference range above. The post-drug PRU values reported in the VerifyNOW P2Y12 package insert are 18-435. This broader range reflects the variability in drug response and is consistent with significant numbers of patients with decreased sensitivity to P2Y12 receptor antagonists (prasugrel or clopidogrel). Clinical studies suggest an on-treatment PRU>230 indicates less than optimal response to therapy, and PRU<208 at 12-24 hours after percutaneous intervention or during follow-up is associated with a lower risk of cardiovascular events (1). (1).Standard-vs high-dose clopidogrel based on platelet function testing after percutaneouscoronary intervention: the GRAVITAS randomized trial. Vick, et al. MOSHE. 2010June 05; 305(11): 9634-4025. doi: 10.1001/moshe.2011.290 Social History Social History Type Response Smoking Status Former Smoker, quit > 1 yr Sex Female Sex Representation Female (finding) Patient Care team information Care Team Personnel Name: MD Susan, Mahad Walker Position: Referring Member Role: Primary Care Provider Address: [facility] [address] [phone] [place] Name: SAMARA Licea Lynn Position: Physician Renal Medicine Specialist Exempt - Vasc Surg Member Role: Lifetime Relationship Address: [address] [place] [id number] [place]
--- OUTSIDE RECORDS SUMMARY | 2024-01-06 21:19 | External Medical Summary | Continuity of Care Document ---
Author Name Unknown Organization [place] [address] [facility] Address [address] [place] [id number] Care Team Providers Care Business Analyst Consultant Name Role Phone SusanMahad gallardo Denise Primary Care Physician [phone] [id number] Date(s): 12/24/23 - 12/24/23 [place] [address] [place] [address] [phone] Encounter Diagnosis Asymptomatic bilateral carotid artery stenosis(Discharge Diagnosis) - 12/24/23 Discharge Disposition: Home or Self Care Attending Physician: MD Lisa, Sanya Springer Allergies, Adverse Reactions, Alerts Substance Criticality Severity [...] diabetes mellitus Confirmed Active Vertigo Confirmed Active Diagnosis Diagnosis Type Effective Dates Health Status Clinical Service Informant Asymptomatic bilateral carotid artery stenosis Discharge Diagnosis 12/24/23 Non-Specified Vital Signs Most recent to oldest [Reference Range]: 1 Heart Rate 86 bpm (12/24/23 9:36 AM) Blood Pressure 130/60mmHg (12/24/23 9:36 AM) Cuff Pulse Pressure 70 mmHg (12/24/23 9:36 AM) BP Location # 1 Left Arm (12/24/23 9:36 AM) Social History Social History Type Response Smoking Status Former Smoker, quit > 1 yr Sex Female Sex Representation Female (finding) Patient Care team information Care Team Personnel Name: MD Susan, Mahad Walker Position: Referring Member Role: Primary Care Provider Address: [facility] [address] [phone] [place] Name: SAMARA Licea Lynn Position: Physician Stem Maker Exempt - Vasc Surg Member Role: Lifetime Relationship Address: [address] [place] [address] [place]
[2024-01-07] MEDS: LEVOTHYROXINE SODIUM 50 MCG TABLET PO SCH (06:12)
--- NOTE | 2024-01-07 07:31 | Critical Care Progress Note ---
Date of Service January 07, 2024 Assessment & Plan (1) Stenosis of right carotid artery: (2) Type 2 diabetes mellitus with insulin therapy: (3) Hypertension: Plan Impression: 73-year-old female with asymptomatic carotid stenosis status post TCAR. She is doing well postoperatively. She was on Rafael-Synephrine overnight Recommendations: 1. Carotid stenosis status post TCAR: Management per vascular surgery. Blood pressure goals per vascular surgery. 2. Hypertension: Rafael-Synephrine currently on hold. Hold atenolol given bradycardia and low blood pressure. 3. Diabetes: Continue outpatient medications. Patient's remaining critical care issues have been well addressed by the vascular surgery service. Critical care will sign off. Feel free to contact us with questions or concerns Admission and Anticipated Discharge Date Admission Date: January 06, 2024 Review of Systems Review of Systems: All systems reviewed & are unremarkable except as noted in Subjective Physical Exam Constitutional: WD/WN, vitals as above Neck: trachea midline, no thyromegaly Respiratory: normal respiratory effort, lungs clear to auscultation Cardiovascular: RRR, no murmur, no edema Gastrointestinal (Abdomen): normal bowel sounds, soft, nontender, no hepatosplenomegaly Musculoskeletal: Extremities: extremities normal to inspection Skin: no rashes, warm and dry Lymphatic: no cervical lymphadenopathy Results & Data Results & Data Vital Signs (Past 12 Hours) Vital Signs Temp Pulse Resp BP Pulse Ox 01/07/24 06:36 59 L 15 97 01/07/24 06:31 135/52 L 01/07/24 06:27 66 20 01/07/24 06:21 82 21 01/07/24 06:12 53 L 21 95 01/07/24 06:03 56 L 17 95 01/07/24 06:00 145/67 H 01/07/24 06:00 145/67 H 01/07/24 05:57 56 L 19 96 01/07/24 05:51 61 14 96 01/07/24 05:36 52 L 16 95 01/07/24 05:30 132/63 01/07/24 05:30 132/63 01/07/24 05:24 54 L 17 95 01/07/24 05:21 51 L 19 95 01/07/24 05:09 52 L 17 95 01/07/24 05:00 141/67 H 01/07/24 05:00 141/67 H 01/07/24 04:57 54 L 21 96 01/07/24 04:48 55 L 26 H 96 01/07/24 04:36 53 L 16 95 01/07/24 04:31 133/68 01/07/24 04:31 133/68 01/07/24 04:27 52 L 16 97 01/07/24 04:24 59 L 16 95 01/07/24 04:15 55 L 15 95 01/07/24 04:00 151/62 H 01/07/24 04:00 57 L 95 01/07/24 04:00 36.8 C 01/07/24 03:45 146/69 H 01/07/24 03:36 69 19 94 01/07/24 03:31 154/61 H 01/07/24 03:30 56 L 17 95 01/07/24 03:15 121/72 01/07/24 03:15 55 L 16 94 01/07/24 03:03 62 17 96 01/07/24 03:00 145/60 H 01/07/24 03:00 145/60 H 01/07/24 03:00 145/60 H 01/07/24 02:54 15 95 01/07/24 02:30 140/68 01/07/24 02:30 140/68 01/07/24 02:30 140/68 01/07/24 02:30 54 L 14 95 01/07/24 02:15 136/65 01/07/24 02:15 136/65 01/07/24 02:15 51 L 13 95 01/07/24 02:12 53 L 21 96 01/07/24 01:45 162/76 H 01/07/24 01:45 162/76 H 01/07/24 01:45 162/76 H 01/07/24 01:45 63 15 95 01/07/24 01:30 54 L 16 94 01/07/24 01:30 142/66 H 01/07/24 01:30 142/66 H 01/07/24 01:30 142/66 H 01/07/24 01:15 135/63 01/07/24 01:12 56 L 15 95 01/07/24 01:03 53 L 15 94 01/07/24 01:00 132/67 01/07/24 01:00 132/67 01/07/24 01:00 132/67 01/07/24 00:45 142/86 H 01/07/24 00:39 53 L 16 95 01/07/24 00:36 54 L 14 95 01/07/24 00:30 134/64 01/07/24 00:27 56 L 16 96 01/07/24 00:21 54 L 15 96 01/07/24 00:00 57 L 01/07/24 00:00 145/62 H 01/07/24 00:00 145/62 H 01/07/24 00:00 36.6 C 01/06/24 23:57 52 L 14 96 01/06/24 23:45 144/62 H 01/06/24 23:45 54 L 17 94 01/06/24 23:39 54 L 20 93 01/06/24 23:30 138/63 01/06/24 23:30 138/63 01/06/24 23:24 52 L 20 95 01/06/24 23:15 53 L 16 96 01/06/24 23:15 138/58 L 01/06/24 23:15 138/58 L 01/06/24 23:15 138/58 L 01/06/24 23:15 138/58 L 01/06/24 23:03 54 L 14 95 01/06/24 23:00 135/65 01/06/24 23:00 135/65 01/06/24 23:00 135/65 01/06/24 23:00 135/65 01/06/24 22:54 54 L 14 95 01/06/24 22:45 137/63 01/06/24 22:45 137/63 01/06/24 22:45 53 L 15 96 01/06/24 22:39 50 L 15 96 01/06/24 22:30 134/63 01/06/24 22:18 53 L 15 96 01/06/24 22:15 106/74 01/06/24 22:15 106/74 01/06/24 22:15 106/74 01/06/24 22:12 53 L 15 96 01/06/24 22:00 131/57 L 01/06/24 22:00 131/57 L 01/06/24 22:00 131/57 L 01/06/24 22:00 53 L 13 95 01/06/24 21:46 139/57 L 01/06/24 21:39 54 L 17 96 01/06/24 21:33 55 L 18 93 01/06/24 21:31 130/58 L 01/06/24 21:31 130/58 L 01/06/24 21:30 55 L 22 95 01/06/24 21:15 162/72 H 01/06/24 21:12 51 L 12 96 01/06/24 21:01 148/65 H 01/06/24 21:01 148/65 H 01/06/24 20:48 53 L 16 95 01/06/24 20:45 145/68 H 01/06/24 20:45 145/68 H 01/06/24 20:45 145/68 H 01/06/24 20:31 158/65 H 01/06/24 20:27 56 L 17 96 01/06/24 20:18 56 L 18 95 01/06/24 20:16 118/51 L 01/06/24 20:16 118/51 L 01/06/24 20:16 118/51 L 01/06/24 20:16 118/51 L 01/06/24 20:00 48 L 19 95 01/06/24 20:00 134/68 01/06/24 20:00 37 C 01/06/24 19:46 133/91 Critical Care Results & Data Vital Signs (Past 12 Hours) Vital Signs Temp Pulse Resp BP Pulse Ox 01/07/24 06:36 59 L 15 97 01/07/24 06:31 135/52 L 01/07/24 06:27 66 20 01/07/24 06:21 82 21 01/07/24 06:12 53 L 21 95 01/07/24 06:03 56 L 17 95 01/07/24 06:00 145/67 H 01/07/24 06:00 145/67 H 01/07/24 05:57 56 L 19 96 01/07/24 05:51 61 14 96 01/07/24 05:36 52 L 16 95 01/07/24 05:30 132/63 01/07/24 05:30 132/63 01/07/24 05:24 54 L 17 95 01/07/24 05:21 51 L 19 95 01/07/24 05:09 52 L 17 95 01/07/24 05:00 141/67 H 01/07/24 05:00 141/67 H 01/07/24 04:57 54 L 21 96 01/07/24 04:48 55 L 26 H 96 01/07/24 04:36 53 L 16 95 01/07/24 04:31 133/68 01/07/24 04:31 133/68 01/07/24 04:27 52 L 16 97 01/07/24 04:24 59 L 16 95 01/07/24 04:15 55 L 15 95 01/07/24 04:00 151/62 H 01/07/24 04:00 57 L 95 01/07/24 04:00 36.8 C 01/07/24 03:45 146/69 H 01/07/24 03:36 69 19 94 01/07/24 03:31 154/61 H 01/07/24 03:30 56 L 17 95 01/07/24 03:15 121/72 01/07/24 03:15 55 L 16 94 01/07/24 03:03 62 17 96 01/07/24 03:00 145/60 H 01/07/24 03:00 145/60 H 01/07/24 03:00 145/60 H 01/07/24 02:54 15 95 01/07/24 02:30 140/68 01/07/24 02:30 140/68 01/07/24 02:30 140/68 01/07/24 02:30 54 L 14 95 01/07/24 02:15 136/65 01/07/24 02:15 136/65 01/07/24 02:15 51 L 13 95 01/07/24 02:12 53 L 21 96 01/07/24 01:45 162/76 H 01/07/24 01:45 162/76 H 01/07/24 01:45 162/76 H 01/07/24 01:45 63 15 95 01/07/24 01:30 54 L 16 94 01/07/24 01:30 142/66 H 01/07/24 01:30 142/66 H 01/07/24 01:30 142/66 H 01/07/24 01:15 135/63 01/07/24 01:12 56 L 15 95 01/07/24 01:03 53 L 15 94 01/07/24 01:00 132/67 01/07/24 01:00 132/67 01/07/24 01:00 132/67 01/07/24 00:45 142/86 H 01/07/24 00:39 53 L 16 95 01/07/24 00:36 54 L 14 95 01/07/24 00:30 134/64 01/07/24 00:27 56 L 16 96 01/07/24 00:21 54 L 15 96 01/07/24 00:00 57 L 01/07/24 00:00 145/62 H 01/07/24 00:00 145/62 H 01/07/24 00:00 36.6 C 01/06/24 23:57 52 L 14 96 01/06/24 23:45 144/62 H 01/06/24 23:45 54 L 17 94 01/06/24 23:39 54 L 20 93 01/06/24 23:30 138/63 01/06/24 23:30 138/63 01/06/24 23:24 52 L 20 95 01/06/24 23:15 53 L 16 96 01/06/24 23:15 138/58 L 01/06/24 23:15 138/58 L 01/06/24 23:15 138/58 L 01/06/24 23:15 138/58 L 01/06/24 23:03 54 L 14 95 01/06/24 23:00 135/65 01/06/24 23:00 135/65 01/06/24 23:00 135/65 01/06/24 23:00 135/65 01/06/24 22:54 54 L 14 95 01/06/24 22:45 137/63 01/06/24 22:45 137/63 01/06/24 22:45 53 L 15 96 01/06/24 22:39 50 L 15 96 01/06/24 22:30 134/63 01/06/24 22:18 53 L 15 96 01/06/24 22:15 106/74 01/06/24 22:15 106/74 01/06/24 22:15 106/74 01/06/24 22:12 53 L 15 96 01/06/24 22:00 131/57 L 01/06/24 22:00 131/57 L 01/06/24 22:00 131/57 L 01/06/24 22:00 53 L 13 95 01/06/24 21:46 139/57 L 01/06/24 21:39 54 L 17 96 01/06/24 21:33 55 L 18 93 01/06/24 21:31 130/58 L 01/06/24 21:31 130/58 L 01/06/24 21:30 55 L 22 95 01/06/24 21:15 162/72 H 01/06/24 21:12 51 L 12 96 01/06/24 21:01 148/65 H 01/06/24 21:01 148/65 H 01/06/24 20:48 53 L 16 95 01/06/24 20:45 145/68 H 01/06/24 20:45 145/68 H 01/06/24 20:45 145/68 H 01/06/24 20:31 158/65 H 01/06/24 20:27 56 L 17 96 01/06/24 20:18 56 L 18 95 01/06/24 20:16 118/51 L 01/06/24 20:16 118/51 L 01/06/24 20:16 118/51 L 01/06/24 20:16 118/51 L 01/06/24 20:00 48 L 19 95 01/06/24 20:00 134/68 01/06/24 20:00 37 C 01/06/24 19:46 133/91 Lab & Micro Results (Past 24 Hours) RBC 5.05 M/uL (4.20-5.40) 01/06/24 WBC 12.99 K/ul (4.8-10.8) H 01/06/24 Hgb 14.1 g/dl (12.0-16.0) 01/06/24 Hct 42.7 % (37.0-47.0) 01/06/24 MCV 84.6 fL (80.0-100.0) 01/06/24 MCH 27.9 pg (25.0-34.0) 01/06/24 MCHC 33.0 g/dL (32.0-36.0) 01/06/24 RDW Standard Deviation 43.5 fL (36.4-46.3) 01/06/24 RDW Coefficient of Variation 14.2 % (11.5-14.5) 01/06/24 Plt Count 309 K/uL (130-400) 01/06/24 MPV 11.9 fL (9.4-12.4) 01/06/24 Neutrophils (%) (Auto) 57.7 % 01/06/24 Lymphocytes (%) (Auto) 33.9 % 01/06/24 Monocytes # (Auto) 0.75 K/uL (0.11-0.59) H 01/06/24 Eosinophils # (Auto) 0.23 K/uL (0.00-0.50) 01/06/24 Immature Granulocyte % (Auto) 0.3 % 01/06/24 Neutrophils # (Auto) 7.50 K/uL (1.40-6.50) H 01/06/24 Lymphocytes # (Auto) 4.41 K/uL (1.20-3.40) H 01/06/24 Monocytes # (Auto) 0.75 K/uL (0.11-0.59) H 01/06/24 Eosinophils # (Auto) 0.23 K/uL (0.00-0.50) 01/06/24 Basophils # (Auto) 0.06 K/uL (0.00-0.20) 01/06/24 Immature Granulocyte # (Auto) 0.04 K/uL (0.01-0.20) 4 Na 141 mmol/L (136-145) 01/06/24 K 4.0 mmol/L (3.5-5.1) 01/06/24 Cl 106 mmol/L (98-107) 01/06/24 CO2 25 mmol/L (21-32) 01/06/24 Anion Gap 10 (3-11) 01/06/24 BUN 12 mg/dl (6-23) 01/06/24 Creatinine 0.78 mg/dl (0.6-1.2) 01/06/24 BUN/Creatinine Ratio 15.4 (10-20) 01/06/24 Glu 108 mg/dl (70-99(Fasting)) H 01/06/24 Ca 9.9 mg/dl (8.6-10.3) 01/06/24 Calcium Level 9.9 mg/dl (8.6-10.3) 01/06/24 11:00 Prothromb Time International Ratio 1.0 (0.9-1.1) 01/06/24 11:0 0 Diagnostic Findings (Past 24 Hours) Chest X-Ray 01/06/24 05:00 XR chest 2V PA/lateral HISTORY: 73 years-old Female order preop preoperative exam COMPARISON: None TECHNIQUE: PA and lateral views of the chest FINDINGS: Cardiomediastinal and hilar silhouettes are within normal limits. No pneumothorax, pleural effusion or airspace consolidation. Cholecystectomy. Degenerative changes of the shoulders and spine. IMPRESSION: No acute process. ACT 112: Negative or not required by law. The above report was generated using voice recognition software. It may contain grammatical, syntax or spelling errors. Electronically signed by: Epi Sumner M.D. 01/06/2024 12:32 PM I & O Totals 24 Hours 01/06/24 01/07/24 01/08/24 06:59 06:59 06:59 Intake Total 2564.691 / 2564.691 Output Total 410 / 410 Balance 2154.691 / 2154.691 Cumulative 12/28/23 09:06 thru 01/07/24 06:30 Intake Total 2564.691 Output Total 410 Balance 2154.691 RT Ventilator Mngmt (Last Documented) Ventilator Ordered Settings Respiratory Rate 15 01/07/24 06:36 Ventilator - PT Measurements Respiratory Rate 15 Coding Level of Care Code 70983 SUB INP/OBS CARE 2/35MIN Diagnoses Stenosis of right carotid artery I65.21 Type 2 diabetes mellitus with insulin therapy E11.9; Z79.4 Essential hypertension I10 Hypertension type: essential hypertension (3) Hypertension Hypertension type: essential hypertension Qualified Code(s): I10 - Essential (primary) hypertension
[2024-01-07] MEDS: ASPIRIN 81 MG ECTAB PO SCH (08:06)
--- NOTE | 2024-01-07 08:48 | Electrocardiogram Report ---
Test Reason : Blood Pressure : */* mmHG Vent. Rate : 53 BPM Atrial Rate : 53 BPM P-R Int : 154 ms QRS Dur : 74 ms QT Int : 462 ms P-R-T Axes : 68 79 79 degrees QTcB Int : 433 ms Sinus bradycardia with marked sinus arrhythmia Otherwise normal ECG No previous ECGs available Confirmed by Melchor Hawkins ([id number]) on 01/07/2024 8:48:35 AM Referred By: Sanya Gonzalez Confirmed By: Melchor Hawkins
[2024-01-07] MEDS: PSEUDOEPHEDRINE HCL 30 MG TAB PO SCH (09:07)
[2024-01-07] MEDS: GABAPENTIN 300 MG CAP PO SCH (12:20)
--- NOTE | 2024-01-07 12:53 | Surgery Progress Note ---
Date of Service January 07, 2024 Assessment & Plan (1) Stenosis of right carotid artery: Plan: Patient is status post right TCAR. She is hypotensive post procedure. We started her on Sudafed today and hopefully can get her off the pressors and discharge tomorrow. Admission and Anticipated Discharge Date Admission Date: January 06, 2024 Subjective The patient is awake with no complaints. She is requiring pressors for hypotension. She was also slightly bradycardic during the night. Physical Exam Constitutional: WD/WN, vitals as above Heart rate is now in the low 70s Neck: trachea midline Respiratory: normal respiratory effort; no respiratory distress Cardiovascular: Rate/Rhythm: regular rate and regular rhythm Skin: + incision (Incision dry and clean) Neurologic: CN's II-XI intact bilaterally and moves all extremities Psychiatric: A+Ox3, euthymic affect Results & Data Vital Signs (Past 12 Hours) Vital Signs Temp Pulse Resp BP Pulse Ox O2 Del Method 01/07/24 12:16 105/61 01/07/24 12:12 60 24 94 Room Air 01/07/24 12:01 116/53 L 01/07/24 12:00 37 C 01/07/24 11:51 75 18 95 01/07/24 11:45 119/63 01/07/24 11:45 66 21 96 01/07/24 11:31 94/39 L 01/07/24 11:31 94/39 L 01/07/24 11:27 79/41 L 01/07/24 11:21 58 L 17 92 01/07/24 11:15 108/50 L 01/07/24 11:15 60 19 92 Room Air 01/07/24 11:03 61 19 93 01/07/24 11:00 140/56 L 01/07/24 10:57 57 L 18 95 01/07/24 10:45 149/61 H 01/07/24 10:45 56 L 27 H 95 Room Air 01/07/24 10:15 134/67 01/07/24 10:09 54 L 24 94 01/07/24 10:06 55 L 22 95 01/07/24 10:00 143/63 H 01/07/24 09:57 55 L 28 H 94 01/07/24 09:45 61 19 94 01/07/24 09:33 56 L 23 95 01/07/24 09:31 156/96 H 01/07/24 09:21 55 L 16 96 01/07/24 09:15 53 L 19 96 01/07/24 09:15 115/57 L 01/07/24 09:01 131/62 01/07/24 09:00 52 L 17 94 01/07/24 08:46 109/54 L 01/07/24 08:46 109/54 L 01/07/24 08:45 62 17 94 01/07/24 08:33 60 15 94 01/07/24 08:31 56 L 99/41 L 01/07/24 08:30 56 L 16 94 01/07/24 08:16 95/37 L 01/07/24 08:00 Room Air 01/07/24 08:00 36.6 C 01/07/24 08:00 58 L 01/07/24 08:00 104/50 L 01/07/24 07:54 75 16 94 Room Air 01/07/24 07:45 109/45 L 01/07/24 07:45 57 L 15 94 01/07/24 07:31 110/43 L 01/07/24 07:21 114/60 01/07/24 07:21 114/60 01/07/24 07:01 153/61 H 01/07/24 07:01 153/61 H 01/07/24 06:36 59 L 15 97 01/07/24 06:31 135/52 L 01/07/24 06:27 66 20 01/07/24 06:21 82 21 01/07/24 06:12 53 L 21 95 01/07/24 06:03 56 L 17 95 01/07/24 06:00 145/67 H 01/07/24 06:00 145/67 H 01/07/24 05:57 56 L 19 96 01/07/24 05:51 61 14 96 01/07/24 05:36 52 L 16 95 01/07/24 05:30 132/63 01/07/24 05:30 132/63 01/07/24 05:24 54 L 17 95 01/07/24 05:21 51 L 19 95 01/07/24 05:09 52 L 17 95 01/07/24 05:00 141/67 H 01/07/24 05:00 141/67 H 01/07/24 04:57 54 L 21 96 01/07/24 04:48 55 L 26 H 96 01/07/24 04:36 53 L 16 95 01/07/24 04:31 133/68 01/07/24 04:31 133/68 01/07/24 04:27 52 L 16 97 01/07/24 04:24 59 L 16 95 01/07/24 04:15 55 L 15 95 01/07/24 04:00 151/62 H 01/07/24 04:00 57 L 95 01/07/24 04:00 36.8 C 01/07/24 03:45 146/69 H 01/07/24 03:36 69 19 94 01/07/24 03:31 154/61 H 01/07/24 03:30 56 L 17 95 01/07/24 03:15 121/72 01/07/24 03:15 55 L 16 94 01/07/24 03:03 62 17 96 01/07/24 03:00 145/60 H 01/07/24 03:00 145/60 H 01/07/24 03:00 145/60 H 01/07/24 02:54 15 95 01/07/24 02:30 140/68 01/07/24 02:30 140/68 01/07/24 02:30 140/68 01/07/24 02:30 54 L 14 95 01/07/24 02:15 136/65 01/07/24 02:15 136/65 01/07/24 02:15 51 L 13 95 01/07/24 02:12 53 L 21 96 01/07/24 01:45 162/76 H 01/07/24 01:45 162/76 H 01/07/24 01:45 162/76 H 01/07/24 01:45 63 15 95 01/07/24 01:30 54 L 16 94 01/07/24 01:30 142/66 H 01/07/24 01:30 142/66 H 01/07/24 01:30 142/66 H 01/07/24 01:15 135/63 01/07/24 01:12 56 L 15 95 01/07/24 01:03 53 L 15 94 01/07/24 01:00 132/67 01/07/24 01:00 01/07/24 01:00
--- NOTE | 2024-01-07 13:41 | Cardiology Consultation ---
Date of Consultation January 07, 2024 Assessment & Plan (1) Hypotension: (2) Previous inferior myocardial infarction older than 8 weeks: (3) PAC (premature atrial contraction): (4) Dyslipidemia: (5) Hypertension: Plan The postop hypotension etiology is unclear but it does not appear to be of a cardiac origin at this time. She seems to have responded well to the Rafael- Synephrine and we are weaning the drip off of her now. Hopefully if we can get the Rafael-Synephrine discontinued this evening we can start her back on her usual dose of atenolol to help with her palpitations and PACs. I ordered labs on her as well as a troponin just to confirm that there is no significant changes. We will follow-up with her tomorrow to make sure she is doing well and progressing. The plan is for her to have the left carotid intervened on within the next month or so. If anything changes overnight please feel free to contact me. History of Present Illness Reason for Consultation: Patient known to you and palpitations Attending Physician: Sanya Gonzalez MD History of Present Illness Waqar is a very nice 73-year-old woman who suffered a STEMI NV back in August 2023. She was initially in [facility] and subsequently transferred to [facility] where she underwent right coronary artery stenting by my former partner Dr. Maynor Sher. She did very well with the procedure and I saw her post discharge in September of this year. She was also noted to have significant carotid disease at that time. We had her set up to see Dr. Gonzalez and yesterday she underwent TCAR at some point postop she developed some significant hypotension and was started on Rafael-Synephrine for her blood pressure her ateno lol dose she did take the morning of her surgery. At some point along the course of her initial hospitalization she was noted to have significant PACs and PVCs on the monitor it is unclear if these were present prior to starting the Rafael-Synephrine or just since the Rafael-Synephrine. She was seen in the ICU and appears to be in no distress at this time the nursing staff has been attempting to wean her Rafael-Synephrine and she is almost off the drip at this time. Her subsequent EKGs were reviewed and there are no significant changes. Allergies Allergy/AdvReac Type Severity Reaction Status Date / Time metformin Allergy Nausea Verified 01/06/24 11:11 wheat Allergy throat Verified 01/06/24 11:11 tightness erythromycin base AdvReac Nausea Verified 01/06/24 11:11 Home Medications Medication Instructions Recorded Confirmed Type aspirin 81 mg tablet 81 mg PO QAM 12/07/18 01/06/24 History cholecalciferol (vitamin D3) 50 2,000 units PO HS #1 cap 12/07/18 01/06/24 History mcg (2,000 unit) capsule citalopram 20 mg tablet (Celexa) 20 mg PO HS 12/07/18 01/06/24 History lancets 25 gauge #100 ea 12/07/18 08/27/23 History atenolol 25 mg tablet 12.5 mg PO BID 08/06/20 01/06/24 History gabapentin 300 mg capsule 300 - 600 mg PO TID 07/15/21 01/06/24 History potassium chloride 10 mEq 10 meq PO HS 07/15/21 01/06/24 History capsule,extended release venlafaxine 37.5 mg 37.5 mg PO HS 07/31/22 01/06/24 History capsule,extended release 24 hr (Effexor XR) magnesium oxide 800 mg PO Q2D 12/16/22 01/06/24 History pen needle, diabetic 32 gauge x #500 ea 07/24/23 08/27/23 Rx 5/32" (BD Ultra-Fine Rebeca Pen Needle) OneTouch Ultra Test (blood sugar #100 ea 08/18/23 08/27/23 Rx diagnostic) blood-glucose sensor (ACS Biomarker G7 08/27/23 08/27/23 History Sensor device) fenofibrate nanocrystallized 145 145 mg PO HS 08/27/23 01/06/24 History mg tablet insulin aspart U-100 100 unit/mL 1 sliding scale dose subcut .with 08/27/23 01/06/24 Rx (3 mL) subcutaneous pen (Novolog meals #15 mL FlexPen U-100 Insulin aspart) levothyroxine 50 mcg tablet 50 mcg PO QAM 90 days #90 tabs 08/27/23 01/06/24 Rx nitroglycerin 0.4 mg sublingual 0.4 mg sublingual UD PRN Chest Pain 08/27/23 01/06/24 History tablet semaglutide 0.25 mg or 0.5 mg (2 0.5 mg (0.736 mL) subcut Q7D 30 11/25/23 01/06/24 Rx mg/3 mL) subcutaneous pen injector days #3 mL (Ozempic) cyanocobalamin (vitamin B-12) 1,000 mcg PO HS 12/29/23 01/06/24 History 1,000 mcg tablet (Vitamin B-12) insulin glargine 100 unit/mL (3 36 unit subcut HS 12/29/23 01/06/24 History mL) subcutaneous pen (Basaglar KwikPen U-100 Insulin) losartan 50 mg-hydrochlorothiazide 1 tab PO HS 12/29/23 01/06/24 History 12.5 mg tablet pantoprazole 40 mg tablet,delayed 40 mg PO HS 12/29/23 01/06/24 History release rosuvastatin 40 mg tablet (Crestor) 40 mg PO HS 12/29/23 01/06/24 History ticagrelor 90 mg tablet (Brilinta) 90 mg PO BID 01/06/24 01/06/24 History Patient History Medical History CAD (coronary artery disease) s/p mid RCA stent 2009 s/p stent to RCA 09/04/23 (also with moderate 50% LAD disease in mid vessel) PAD (peripheral artery disease) - carotid and lower extremity artery disease Carotid artery disease Per 12/11/23 neck CTA "at least 90% stenosis with near occlusion involving the proximal cervical segments of the internal carotid arteries bilaterally, right greater than left." History of paresthesia GERD (gastroesophageal reflux disease) Subclinical hypothyroidism Hypertension Dyslipidemia Diabetic peripheral neuropathy Anxiety Diabetes mellitus type 2, insulin dependent Depression Surgical History History of bilateral tubal ligation Hx of section Hx laparoscopic cholecystectomy History of esophagogastroduodenoscopy (EGD) Hx of colonoscopy Hx of heart artery stent 05/09/09, "felt a burning feeling in chest/back," [facility], x1 stent 09/04/23, abn stress test, [facility], x1 stent; f/u dr. davidson, [place] [facility] Hx of cardiac cath 05/09/09, "felt a burning feeling in chest/back," [facility], x1 stent 09/04/23, abn stress test, [facility], x1 stent; f/u dr. davidson, [facility] cardio Social History Smoking Status: Former smoker Smoking End Date: years ago; Second Hand Exposure: No; Do You Dip or Chew Tobacco: No; Tobacco Cessation Education Requested by Patient: No Hx Alcohol Use: No Hx Substance Use: No Preferred Language: German Communication Ability: Effective Protective Signal Superintendent Required: No Beliefs That Will Affect Care: None Current Living Situation: Spouse Other Information That Helps Us Care for You: No Feels Safe at Home: Yes Safety Concerns: Feels Safe At This Time Assistive Devices: Cane Review of Systems Review of Systems: All systems reviewed & are unremarkable except as noted in HPI & below Physical Exam Physical Exam: She is awake alert and oriented in no distress she appears tired she has an arterial line in place and she is in bed Neck: Her right incision a roll along her clavicle appears intact Respiratory: Lungs are clear to auscultation bilaterally there are no rales rhonchi or wheezing Cardiovascular: Heart is regular there is no ectopy noted while I was seeing her there are no new murmurs appreciated Results & Data Vital Signs (Past 12 Hours) Vital Signs Temp Pulse Resp BP Pulse Ox O2 Del Method 01/07/24 12:16 105/61 01/07/24 12:12 60 24 94 Room Air 01/07/24 12:01 116/53 L 01/07/24 12:00 37 C 01/07/24 11:51 75 18 95 01/07/24 11:45 119/63 01/07/24 11:45 66 21 96 01/07/24 11:31 94/39 L 01/07/24 11:31 94/39 L 01/07/24 11:27 79/41 L 01/07/24 11:21 58 L 17 92 01/07/24 11:15 108/50 L 01/07/24 11:15 60 19 92 Room Air 01/07/24 11:03 61 19 93 01/07/24 11:00 140/56 L 01/07/24 10:57 57 L 18 95 01/07/24 10:45 149/61 H 01/07/24 10:45 56 L 27 H 95 Room Air 01/07/24 10:15 134/67 01/07/24 10:09 54 L 24 94 01/07/24 10:06 55 L 22 95 01/07/24 10:00 143/63 H 01/07/24 09:57 55 L 28 H 94 01/07/24 09:45 61 19 94 01/07/24 09:33 56 L 23 95 01/07/24 09:31 156/96 H 01/07/24 09:21 55 L 16 96 01/07/24 09:15 53 L 19 96 01/07/24 09:15 115/57 L 01/07/24 09:01 131/62 01/07/24 09:00 52 L 17 94 01/07/24 08:46 109/54 L 01/07/24 08:46 109/54 L 01/07/24 08:45 62 17 94 01/07/24 08:33 60 15 94 01/07/24 08:31 56 L 99/41 L 01/07/24 08:30 56 L 16 94 01/07/24 08:16 95/37 L 01/07/24 08:00 Room Air 01/07/24 08:00 36.6 C 01/07/24 08:00 58 L 01/07/24 08:00 104/50 L 01/07/24 07:54 75 16 94 Room Air 01/07/24 07:45 109/45 L 01/07/24 07:45 57 L 15 94 01/07/24 07:31 110/43 L 01/07/24 07:21 114/60 01/07/24 07:21 114/60 01/07/24 07:01 153/61 H 01/07/24 07:01 153/61 H 01/07/24 06:36 59 L 15 97 01/07/24 06:31 135/52 L 01/07/24 06:27 66 20 01/07/24 06:21 82 21 01/07/24 06:12 53 L 21 95 01/07/24 06:03 56 L 17 95 01/07/24 06:00 145/67 H 01/07/24 06:00 145/67 H 01/07/24 05:57 56 L 19 96 01/07/24 05:51 61 14 96 01/07/24 05:36 52 L 16 95 01/07/24 05:30 132/63 01/07/24 05:30 132/63 01/07/24 05:24 54 L 17 95 01/07/24 05:21 51 L 19 95 01/07/24 05:09 52 L 17 95 01/07/24 05:00 141/67 H 01/07/24 05:00 141/67 H 01/07/24 04:57 54 L 21 96 01/07/24 04:48 55 L 26 H 96 01/07/24 04:36 53 L 16 95 01/07/24 04:31 133/68 01/07/24 04:31 133/68 01/07/24 04:27 52 L 16 97 01/07/24 04:24 59 L 16 95 01/07/24 04:15 55 L 15 95 01/07/24 04:00 151/62 H 01/07/24 04:00 57 L 95 01/07/24 04:00 36.8 C 01/07/24 03:45 146/69 H 01/07/24 03:36 69 19 94 01/07/24 03:31 154/61 H 01/07/24 03:30 56 L 17 95 01/07/24 03:15 121/72 01/07/24 03:15 55 L 16 94 01/07/24 03:03 62 17 96 01/07/24 03:00 145/60 H 01/07/24 03:00 145/60 H 01/07/24 03:00 145/60 H 01/07/24 02:54 15 95 01/07/24 02:30 140/68 01/07/24 02:30 140/68 01/07/24 02:30 140/68 01/07/24 02:30 54 L 14 95 01/07/24 02:15 136/65 01/07/24 02:15 136/65 01/07/24 02:15 51 L 13 95 01/07/24 02:12 53 L 21 96 01/07/24 01:45 162/76 H 01/07/24 01:45 162/76 H 01/07/24 01:45 162/76 H 01/07/24 01:45 63 15 95 Laboratory Results Abnormal lab results 01/06/24 01/06/24 01/06/24 Range/Units 14:33 15:23 18:06 Activ Coag Time Kaolin 305 H (94-140) SECONDS POC Glucose 125 H 145 H (70-99) mg/dl 01/06/24 01/07/24 01/07/24 Range/Units 19:34 07:25 11:31 Activ Coag Time Kaolin (94-140) SECONDS POC Glucose 137 H 141 H 166 H (70-99) mg/dl ECG Additional Comments: EKG showed normal sinus rhythm sinus bradycardia with PACs there is an RSR prime in V1 there are no acute ST-T wave changes (5) Hypertension Hypertension type: essential hypertension Qualified Code(s): I10 - Essential (primary) hypertension
[2024-01-07 14:32] LABS: Albumin Globulin Ratio 1.4 (0.9-2); Albumin Level 3.7 gm/dl (3.4-5.0); BUN Creatinine Ratio 24.1 (10-20); Bilirubin,Total 0.3 mg/dl (0.2-1.0); Calcium 9.2 mg/dl (8.6-10.3); Creatinine Clr Calc Pharmacy 72.9 ml/min; Globulin 2.6 gm/dl (2.5-4.0); Potassium 4.2 mmol/L (3.5-5.1); Total Protein 6.3 gm/dl (6.0-8.3)
[2024-01-07 14:33] LABS: Basophils # (auto) 0.03 K/uL (0.00-0.20); Basophils % (auto) 0.2 %; Eosinophils # (auto) 0.01 K/uL (0.00-0.50); Eosinophils % (auto) 0.1 %; Hematocrit (blood only) 33.9 % (37.0-47.0); Immature Granulocytes # (auto) 0.08 K/uL (0.01-0.20); Immature Granulocytes % (auto) 0.5 %; Lymphocytes # (auto) 2.22 K/uL (1.20-3.40); Lymphocytes % (auto) 14.9 %; Mean Corpuscular Hemoglobin 27.8 pg (25.0-34.0); Mean Corpuscular Hgb Conc 32.4 g/dL (32.0-36.0); Mean Corpuscular Volume 85.6 fL (80.0-100.0); Mean Platelet Volume 11.7 fL (9.4-12.4); Monocytes # (auto) 0.91 K/uL (0.11-0.59); Monocytes % (auto) 6.1 %; Neutrophils # (auto) 11.67 K/uL (1.40-6.50); Neutrophils % (auto) 78.2 %; Platelet Count 285 K/uL (130-400); RDW Coefficient of Variation 14.4 % (11.5-14.5); RDW Standard Deviation 45.2 fL (36.4-46.3); Red Blood Count 3.96 M/uL (4.20-5.40); White Blood Count 14.92 K/ul (4.8-10.8)
[2024-01-07 14:38] LABS: Troponin I High Sensitivity 5.9 pg/ml (0-14)
[2024-01-07] MEDS: MAGNESIUM OXIDE 400 MG TAB PO SCH (20:48)
--- NOTE | 2024-01-08 07:32 | Critical Care Progress Note ---
Date of Service January 08, 2024 Assessment & Plan (1) Stenosis of right carotid artery: (2) Type 2 diabetes mellitus with insulin therapy: (3) Hypertension: Plan Impression: 73-year-old female with asymptomatic carotid stenosis status post TCAR. She is doing well postoperatively. She was on Rafael-Synephrine overnight Recommendations: 1. Carotid stenosis status post TCAR: Management per vascular surgery. Blood pressure goals per vascular surgery. 2. Hypotension: Arterial line nonfunctional and discontinued. Off Rafael- Synephrine currently. If continues to have issues, would have low threshold for addition of midodrine p.o. instead of Sudafed 3. Diabetes: Continue outpatient medications. 4. Coronary disease: Management per cardiology. Consider restarting beta- tyron as soon as feasible. Patient's remaining critical care issues have been well addressed by the vascular surgery service. Critical care will sign off. Feel free to contact us with questions or concerns Admission and Anticipated Discharge Date Admission Date: January 06, 2024 Subjective Patient seen and examined. EMR reviewed. The patient reports only some slight cramping in her right jaw. No chest pain or palpitations. She has been intermittently on and off of vasopressors overnight. They were discontinued earlier this morning. Her A-line was discontinued as it became nonfunctional. She is tolerating a diet. No new neurological complaints Review of Systems Review of Systems: All systems reviewed & are unremarkable except as noted in Subjective Physical Exam Constitutional: WD/WN, vitals as above Neck: trachea midline, no thyromegaly Respiratory: normal respiratory effort, lungs clear to auscultation Cardiovascular: RRR, no murmur, no edema Gastrointestinal (Abdomen): normal bowel sounds, soft, nontender, no hepatosplenomegaly Musculoskeletal: Extremities: extremities normal to inspection Skin: no rashes, warm and dry Lymphatic: no cervical lymphadenopathy Results & Data Results & Data Vital Signs (Past 12 Hours) Vital Signs Temp Pulse Resp BP Pulse Ox 01/08/24 07:19 70 01/08/24 06:30 67 29 H 95 01/08/24 06:30 113/62 01/08/24 06:21 69 19 94 01/08/24 06:00 124/66 01/08/24 05:12 68 15 94 01/08/24 05:00 137/64 01/08/24 04:00 36.7 C 01/08/24 04:00 131/61 01/08/24 03:57 70 17 93 01/08/24 03:00 124/64 01/08/24 02:57 72 20 97 01/08/24 02:06 64 18 95 01/08/24 01:00 125/59 L 01/08/24 00:57 70 18 95 01/08/24 00:00 65 01/08/24 00:00 36.8 C 01/08/24 00:00 155/65 H 01/08/24 00:00 155/65 H 01/07/24 23:51 63 14 95 01/07/24 23:00 146/72 H 01/07/24 23:00 63 15 96 01/07/24 22:00 138/67 01/07/24 22:00 138/67 01/07/24 22:00 68 22 96 01/07/24 21:12 51 L 15 97 01/07/24 21:10 136/73 01/07/24 20:00 149/67 H 01/07/24 20:00 36.8 C 01/07/24 19:57 65 18 95 Critical Care Results & Data Vital Signs (Past 12 Hours) Vital Signs Temp Pulse Resp BP Pulse Ox 01/08/24 07:19 70 01/08/24 06:30 67 29 H 95 01/08/24 06:30 113/62 01/08/24 06:21 69 19 94 01/08/24 06:00 124/66 01/08/24 05:12 68 15 94 01/08/24 05:00 137/64 01/08/24 04:00 36.7 C 01/08/24 04:00 131/61 01/08/24 03:57 70 17 93 01/08/24 03:00 124/64 01/08/24 02:57 72 20 97 01/08/24 02:06 64 18 95 01/08/24 01:00 125/59 L 01/08/24 00:57 70 18 95 01/08/24 00:00 65 01/08/24 00:00 36.8 C 01/08/24 00:00 155/65 H 01/08/24 00:00 155/65 H 01/07/24 23:51 63 14 95 01/07/24 23:00 146/72 H 01/07/24 23:00 63 15 96 01/07/24 22:00 138/67 01/07/24 22:00 138/67 01/07/24 22:00 68 22 96 01/07/24 21:12 51 L 15 97 01/07/24 21:10 136/73 01/07/24 20:00 149/67 H 01/07/24 20:00 36.8 C 01/07/24 19:57 65 18 95 Lab & Micro Results (Past 24 Hours) RBC 3.96 M/uL (4.20-5.40) L 01/07/24 WBC 14.92 K/ul (4.8-10.8) H 01/07/24 Hgb 11.0 g/dl (12.0-16.0) L 01/07/24 Hct 33.9 % (37.0-47.0) L 01/07/24 MCV 85.6 fL (80.0-100.0) 01/07/24 MCH 27.8 pg (25.0-34.0) 01/07/24 MCHC 32.4 g/dL (32.0-36.0) 01/07/24 RDW Standard Deviation 45.2 fL (36.4-46.3) 01/07/24 RDW Coefficient of Variation 14.4 % (11.5-14.5) 01/07/24 Plt Count 285 K/uL (130-400) 01/07/24 MPV 11.7 fL (9.4-12.4) 01/07/24 Neutrophils (%) (Auto) 78.2 % 01/07/24 Lymphocytes (%) (Auto) 14.9 % 01/07/24 Monocytes # (Auto) 0.91 K/uL (0.11-0.59) H 01/07/24 Eosinophils # (Auto) 0.01 K/uL (0.00-0.50) 01/07/24 Immature Granulocyte % (Auto) 0.5 % 01/07/24 Neutrophils # (Auto) 11.67 K/uL (1.40-6.50) H 01/07/24 Lymphocytes # (Auto) 2.22 K/uL (1.20-3.40) 01/07/24 Monocytes # (Auto) 0.91 K/uL (0.11-0.59) H 01/07/24 Eosinophils # (Auto) 0.01 K/uL (0.00-0.50) 01/07/24 Basophils # (Auto) 0.03 K/uL (0.00-0.20) 01/07/24 Immature Granulocyte # (Auto) 0.08 K/uL (0.01-0.20) 4 Na 137 mmol/L (136-145) 01/07/24 K 4.2 mmol/L (3.5-5.1) 01/07/24 Cl 106 mmol/L (98-107) 01/07/24 CO2 25 mmol/L (21-32) 01/07/24 Anion Gap 6 (3-11) 01/07/24 BUN 21 mg/dl (6-23) 01/07/24 Creatinine 0.87 mg/dl (0.6-1.2) 01/07/24 BUN/Creatinine Ratio 24.1 (10-20) H 01/07/24 Glu 131 mg/dl (70-99(Fasting)) H 01/07/24 Ca 9.2 mg/dl (8.6-10.3) 01/07/24 Total Bilirubin 0.3 mg/dl (0.2-1.0) 01/07/24 AST 16 U/L (13-39) 01/07/24 ALT 14 U/L (7-52) 01/07/24 Alkaline Phosphatase 48 U/L (34-104) 01/07/24 TP 6.3 gm/dl (6.0-8.3) 01/07/24 Albumin 3.7 gm/dl (3.4-5.0) 01/07/24 Globulin 2.6 gm/dl (2.5-4.0) 01/07/24 Albumin/Globulin Ratio 1.4 (0.9-2) 01/07/24 Calcium Level 9.2 mg/dl (8.6-10.3) 01/07/24 14:01 I & O Totals 24 Hours 01/07/24 01/08/24 01/09/24 06:59 06:59 06:59 Intake Total 2564.691 / 2564.691 2724.067 / 2724.067 32.025 / 32.025 Output Total 410 / 410 Balance 2154.691 / 2154.691 2724.067 / 2724.067 32.025 / 32.025 Cumulative 12/28/23 09:06 thru 01/08/24 07:05 Intake Total 5320.783 Output Total 410 Balance 4910.783 RT Ventilator Mngmt (Last Documented) Ventilator Ordered Settings Respiratory Rate 29 01/08/24 06:30 Ventilator - PT Measurements Respiratory Rate 29 Coding Level of Care Code 76298 SUB INP/OBS CARE 2/35MIN Diagnoses Stenosis of right carotid artery I65.21 Type 2 diabetes mellitus with insulin therapy E11.9; Z79.4 Essential hypertension I10 Hypertension type: essential hypertension (3) Hypertension Hypertension type: essential hypertension Qualified Code(s): I10 - Essential (primary) hypertension
--- NOTE | 2024-01-08 08:43 | Cardiology Progress Note ---
Date of Service January 08, 2024 Assessment & Plan (1) Hypotension: (2) Previous inferior myocardial infarction older than 8 weeks: (3) PAC (premature atrial contraction): (4) Dyslipidemia: (5) Hypertension: Plan Ms. Palumbo's post op hypotension is improving. It was unclear exactly why she became hypotensive but she is probably having some amount of prolonged vagal response to carotid manipulation coupled with anesthesia. She did have a slight drop in her hgb but this is likely largely dilutional as she is up 5 L. She remains orthostatic. She did have a dose of Sudafed this morning. I will add 2.5 mg bid midodrine and stop further doses of Sudafed. It may be contributing to her PVCs. Hopefully, this evening her blood pressure will be well enough supported to start her atenolol. There were no electrolyte abnormalities on her labs yesterday and her troponin was normal. Her kidney function is stable. Admission and Anticipated Discharge Date Admission Date: January 06, 2024 Subjective Ms. Palumbo feels well overall this morning. She denies dyspnea or chest pain. She had some PVCs on the monitor overnight but is having less this morning. The neosynephrine drip is off. Her blood pressure dropped into the 80s systolically after she sat back down from getting up to the bathroom but had recovered to normal after 15 minutes. She feels mild dizziness with this. Review of Systems Review of Systems: All systems reviewed & are unremarkable except as noted in HPI & below Physical Exam Constitutional: WD/WN, vitals as above Respiratory: normal respiratory effort, lungs clear to auscultation Cardiovascular: RRR, no murmur, no edema Skin: no rashes, warm and dry Neurologic: moves all extremities and awake Psychiatric: A+Ox3, euthymic affect Results & Data Vital Signs (Past 12 Hours) Vital Signs Temp Pulse Resp BP Pulse Ox O2 Del Method 01/08/24 07:37 36.6 C 01/08/24 07:30 111/58 L 01/08/24 07:30 70 17 96 Room Air 01/08/24 07:19 70 01/08/24 07:18 73 17 93 01/08/24 07:00 119/50 L 01/08/24 06:45 71 18 95 01/08/24 06:30 67 29 H 95 01/08/24 06:30 113/62 01/08/24 06:21 69 19 94 01/08/24 06:00 124/66 01/08/24 05:12 68 15 94 01/08/24 05:00 137/64 01/08/24 04:00 36.7 C 01/08/24 04:00 131/61 01/08/24 03:57 70 17 93 01/08/24 03:00 124/64 01/08/24 02:57 72 20 97 01/08/24 02:06 64 18 95 01/08/24 01:00 125/59 L 01/08/24 00:57 70 18 95 01/08/24 00:00 65 01/08/24 00:00 36.8 C 01/08/24 00:00 155/65 H 01/08/24 00:00 155/65 H 01/07/24 23:51 63 14 95 01/07/24 23:00 146/72 H 01/07/24 23:00 63 15 96 01/07/24 22:00 138/67 01/07/24 22:00 138/67 01/07/24 22:00 68 22 96 01/07/24 21:12 51 L 15 97 01/07/24 21:10 136/73 (5) Hypertension Hypertension type: essential hypertension Qualified Code(s): I10 - Essential (primary) hypertension
[2024-01-08] MEDS: MIDODRINE HCL 2.5 MG TAB PO SCH (09:18)
[2024-01-08 09:42] VITALS: O2SAT 95
--- NOTE | 2024-01-08 09:47 | Surgery Progress Note ---
Date of Service January 08, 2024 Assessment & Plan (1) Stenosis of right carotid artery: Plan: Patient is status post right TCAR. Doing well. Will d/c today on medodrine. Admission and Anticipated Discharge Date Admission Date: January 06, 2024 Subjective Patient without complaints. BP better. Heart rate better. No neuro deficits. Physical Exam Physical Exam: Constitutional: In general patient is an obese but healthy-appearing well- nourished developed elderly female in no distress. She is alert and oriented but in focal deficits. Her head is normocephalic and atraumatic. Her right carotid does demonstrate a bruit, her left does not. Her heart is regular, her lungs are decreased throughout but are clear. Her abdomen is soft and nontender with active bowel sounds in all 4 quadrants. Brachial and radial pulses are +3. Femoral pulses are +3. Right DP pulses +1, PT pulses +2. Left DP and PT pulses are +1. She has brisk capillary refill and no sign of distal ischemia. She has trace to 1+ edema at the ankles. Constitutional: WD/WN, vitals as above Respiratory: normal respiratory effort; no respiratory distress Cardiovascular: Rate/Rhythm: regular rate and regular rhythm Skin: + incision (Incision dry and clean) Neurologic: CN's II-XI intact bilaterally and moves all extremities Psychiatric: A+Ox3, euthymic affect Results & Data Vital Signs (Past 12 Hours) Vital Signs Temp Pulse Resp BP Pulse Ox O2 Del Method 01/08/24 09:16 105/48 L 01/08/24 09:15 73 12 95 01/08/24 09:03 75 14 92 01/08/24 09:01 123/44 L 01/08/24 08:51 84 13 95 01/08/24 08:46 99/50 L 01/08/24 08:46 99/50 L 01/08/24 08:39 86 16 98 01/08/24 08:31 93/38 L 01/08/24 08:30 74 16 95 01/08/24 08:29 100/46 L 01/08/24 08:27 85 17 95 01/08/24 08:27 84/41 L 01/08/24 08:03 82 18 94 01/08/24 08:00 84/57 L 01/08/24 07:57 89 20 92 01/08/24 07:45 98/50 L 01/08/24 07:39 80 24 91 01/08/24 07:37 36.6 C 01/08/24 07:30 111/58 L 01/08/24 07:30 111/58 L 01/08/24 07:30 70 17 96 Room Air 01/08/24 07:19 70 01/08/24 07:18 73 17 93 01/08/24 07:00 119/50 L 01/08/24 06:45 71 18 95 01/08/24 06:30 67 29 H 95 01/08/24 06:30 113/62 01/08/24 06:21 69 19 94 01/08/24 06:00 124/66 01/08/24 05:12 68 15 94 01/08/24 05:00 137/64 01/08/24 04:00 36.7 C 01/08/24 04:00 131/61 01/08/24 03:57 70 17 93 01/08/24 03:00 124/64 01/08/24 02:57 72 20 97 01/08/24 02:06 64 18 95 01/08/24 01:00 125/59 L 01/08/24 00:57 70 18 95 01/08/24 00:00 65 01/08/24 00:00 36.8 C 01/08/24 00:00 155/65 H 01/08/24 00:00 155/65 H 01/07/24 23:51 63 14 95 01/07/24 23:00 146/72 H 01/07/24 23:00 63 15 96 01/07/24 22:00 138/67 01/07/24 22:00 138/67 01/07/24 22:00 68 22 96
[2024-01-08 11:30] VITALS: TEMP 97.7
[2024-01-08 13:05] VITALS: BP 102/48; PULSE 73; RESP 18
[2024-01-08] MEDS ORDERED: MIDODRINE HCL 2.5 MG TAB PO SCH (14:00)
--- NOTE | 2024-01-11 08:50 | Discharge Summary ---
Date of Service January 11, 2024 Admission HPI Per Admitting Provider Ms. 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 Patient states that she developed pain in her low back and in her "sciatica" which then shoots down her legs when she is standing upright to ambulate. If she is at the grocery store and has a cart to lean on, she is able to finish her grocery shopping without any problems. She also admits some severe chronic numbness and tingling in her lower legs and feet which is clearly related to her diabetes control, as it is worse when her blood sugars are out of control and improved when they are controlled. She denies any discoloration of the feet or toes, wounds on the feet or toes, rest pain, or other concerns. She denies any symptoms of cerebrovascular insufficiency including amaurosis, unilateral extremity weakness numbness or tingling, difficulty speaking or swallowing, facial droop, sudden onset confusion. She also denies headache, fever, chest pain, shortness of breath, abdominal pain, nausea, vomiting, other concerns. 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 Admission Exam Per Admitting Provider Constitutional: In general patient is an obese but healthy-appearing well- nourished developed elderly female in no distress. She is alert and oriented but in focal deficits. Her head is normocephalic and atraumatic. Her right ca rotid does demonstrate a bruit, her left does not. Her heart is regular, her lungs are decreased throughout but are clear. Her abdomen is soft and nontender with active bowel sounds in all 4 quadrants. Brachial and radial pulses are +3. Femoral pulses are +3. Right DP pulses +1, PT pulses +2. Left DP and PT pulses are +1. She has brisk capillary refill and no sign of distal ischemia. She has trace to 1+ edema at the ankles. Principal Diagnosis 1. s/p R TCAR 2. R ICAS 3. Bradycardia Discharge Exam Constitutional WD/WN, vitals as above Neck trachea midline Respiratory normal respiratory effort; no respiratory distress Cardiovascular Rate/Rhythm: regular rate and regular rhythm Skin + incision (Incision dry and clean) Neurologic CN's II-XI intact bilaterally and moves all extremities Psychiatric A+Ox3, euthymic affect Discharge Data Allergies Allergy/AdvReac Type Severity Reaction Status Date / Time metformin Allergy Nausea Verified 01/06/24 11:11 wheat Allergy throat Verified 01/06/24 11:11 tightness erythromycin base AdvReac Nausea Verified 01/06/24 11:11 Consultations 01/07/24 08:40 Consult Cardiology Routine Procedures Performed Operation Date: 01/06/24 13:00 Actual Procedures p Right Transcarotid Artery Revascularization(Right) - Sanya Gonzalez MD Ordered Studies 01/06/24 07:32 EV angio carotid cerv RT Routine US EV guide vascular access Routine Hospital Course (1) Stenosis of right carotid artery: Patient is status post right TCAR. Doing well. Will d/c today on medodrine. Total Time Total Time Spent Total Time Spent (In Minutes): 0 Discharge Plan Discharge Items Patient Disposition: Home - Self-Care Reason For Visit: Right Carotid Stenosis Discharge Diagnosis: Right internal carotid artery stenosis Activity: Per Instructions section Non-emergency contact: Surgeon Call non-emergency contact if: your temperature is above 101.5, your wound has increased redness, your wound has increased drainage and your wound pain has increased Follow-up/Referrals: Mahad Davis MD [Primary Care Provider] - 01/19/24 11:45 am (Hospital follow up scheduled for January 19, 2024 at 11:45am.) Diet: Carb Consistent or DM2 and Heart Healthy Addtl Attending Provider Instructions: SPECIAL CARE INSTRUCTIONS: Diet: * You may return to previous diet. Medications: * Continue to take Aspirin, plavix, statin as directed. Incision Care: * You may shower, but do not rub incision. You may let the warm soapy water run over it. Be sure to dry the incision well after bathing. * Do not shave directly over the incision until it is healed. * DO NOT IMMERSE THE INCISION IN A TUB/POOL/etc. UNTIL HEALED. Restrictions: * Do not drive for at least one week or if you are still taking any narcotic pain medication. * Do not lift anything heavier than a gallon of milk for one week after going home. Possible Complications: * Numbness - It is normal to have some numbness around the incision. Numbness can extend beyond the incision to areas of the neck, ear and face. The numbness is due to bruising of nerves during the surgery and will gradually improve over a period of months. * Hoarseness/Difficulty Speaking and Swallowing - The bruising of nerves in the neck can also cause a hoarse voice, difficulty speaking or swallowing. This may improve over time, HOWEVER, if it continues for more than a few days please contact our office ([phone]). * Excessive Swelling - There will be some swelling immediately after surgery which usually resolves within one week. If you notice that the swelling is getting worse, notify your surgeon ([phone]). * Drainage/Bleeding - If there is any drainage or bleeding, it should be a very small amount (less than a teaspoon per day). If you have excessive bleeding or drainage from the incision, call your surgeon ([phone]) right away. ACTIVATION OF EMERGENCY MEDICAL SYSTEM: Call 911, immediately, if you experience any of the following: Warning Signs and Symptoms of Stroke: * Sudden numbness or weakness of the face, arm or leg, especially on one side of the body * Sudden confusion, trouble speaking or understanding * Sudden trouble seeing in one or both eyes * Sudden trouble walking, dizziness, loss of balance or coordination * Sudden severe headache with no cause Do not delay calling 911 if you experience any warning signs or symptoms of a stroke. Delay in seeking medical attention may affect what treatments can be given to you. Risk Factors for Stroke: You can reduce your chances of stroke by working with your medical provider to adopt a healthy lifestyle. Some specific ways to lower your chance of stroke are: * If you are a smoker, now is the time to stop smoking cigarettes * If you are diabetic, improve the control of your blood sugars * Avoid excessive amounts of alcohol * Control high blood pressure * Lose weight if you are overweight * Be sure to lead an active lifestyle * Eat a healthy diet low in salt, cholesterol and fat You should know about other risk factors for stroke that you are unable to con trol. These include: * Age 55 years or older * Male gender * Certain racial groups: , or / * Family History of Stroke, Mini stroke or Heart Attack * Sickle Cell Disease You will be receiving a call from the Vascular Surgery Nurse after you are discharged. FOLLOW UP VISIT: It is important for you to keep your follow up appointments with your medical provider. Keep any scheduled doctor appointments. Call [phone] to schedule a follow up appointment if one not already scheduled. Addtl Media Analytics Manager Provider Instructions: Midodrine was added to support your blood pressure. You should avoid taking this medicine within 3 hours of bedtime as it can increase supine blood pressures. Make sure to drink plenty of water. Hold your hctz/lisinopril until your follow up with Dr. Mosquera which should be in a week or so. You can resume your atenolol. Stand-Alone Forms: [facility] Diffon, Smoking Cessation Medications and DC Order Prescriptions: New oxycodone-acetaminophen [Percocet] 5-325 mg Tablet 1 - 2 tab PO Q4H PRN (Reason: pain) Qty: 12 0RF midodrine 5 mg tablet 5 mg PO BID 30 Days Qty: 60 0RF Rx Instructions: Take a dose in the morning and then again in the mid to late afternoon. Do not give last dose of day after 6PM or within 3 hrs of bedtime. Continued (DME) pen needle, diabetic [BD Ultra-Fine Rebeca Pen Needle] 32 gauge x 5/32" needle See Rx Instructions .ROUTE .MEDSUPPLY Qty: 500 3RF Rx Instructions: use 4 needles daily with insulin and 1 needle weekly with Ozempic (DME) OneTouch Ultra Test Strip See Rx Instructions .Route Qty: 100 5RF Rx Instructions: Test bloood sugar 3 x daily and PRN Ozempic 0.25 mg or 0.5 mg (2 mg/3 mL) pen injector 0.5 mg subcut Q7D 30 Days Qty: 3 5RF Patient Comments: aspirin 81 mg tablet 81 mg PO QAM citalopram [Celexa] 20 mg tablet 20 mg PO HS (DME) lancets 25 gauge misc See Dose Instructions .ROUTE .MEDSUPPLY Qty: 100 Rx Instructions: test 4 times daily cholecalciferol (vitamin D3) 2,000 unit capsule 2,000 units PO HS Qty: 1 potassium chloride 10 mEq capsule, extended release 10 meq PO HS atenolol 25 mg tablet 12.5 mg PO BID gabapentin 300 mg capsule 300 - 600 mg PO TID Rx Instructions: 600mg in am, 300mg at lunch, and 600mg in pm (DME) Dexcom G7 Sensor Device See Rx Instructions .ROUTE Rx Instructions: As directed fenofibrate nanocrystallized 145 mg tablet 145 mg PO HS nitroglycerin 0.4 mg tablet, sublingual 0.4 mg sublingual UD PRN (Reason: Chest Pain) insulin aspart U-100 [Novolog FlexPen U-100 Insulin] 100 unit/mL (3 mL) insulin pen 1 sliding scale dose SQ .with meals Qty: 15 1RF Rx Instructions: max daily dose 15 u levothyroxine 50 mcg tablet 50 mcg PO QAM 90 Days Qty: 90 1RF venlafaxine [Effexor XR] 37.5 mg capsule,extended release 24hr 37.5 mg PO HS magnesium oxide 400 mg magnesium tablet 800 mg PO Q2D cyanocobalamin (vitamin B-12) [Vitamin B-12] 1,000 mcg Tablet 1,000 mcg PO HS pantoprazole 40 mg Tablet,Delayed Release (Dr/Ec) 40 mg PO HS rosuvastatin [Crestor] 40 mg tablet 40 mg PO HS insulin glargine [Basaglar KwikPen U-100 Insulin] 100 unit/mL (3 mL) insulin pen 36 unit subcut HS Brilinta 90 mg Tablet 90 mg PO BID Held losartan-hydrochlorothiazide 50-12.5 mg tablet 1 tab PO HS Hold Instructions: Resume on 01/29/24. hold until follow up with Dr. Mosquera Discharge Orders: Discharge Order (Routine); Ordered 01/08/24 Ordered By: Sanya Gonzalez Admission Data Admit Date/Time: 01/06/24 13:14 Attending Provider: Sanya Gonzalez Admit Provider: Sanya Gonzalez Primary Care Provider: Mahad Davis Other Providers: Ayesha Mosquera Other Interventions: Discharge Summary Assessment (RN) Last Done: 01/08/24 12:04
== END 2024-01-08 13:44 | disposition home or self-care (01) | DRG 36 ==
LOC: ASU 10:37 → 1E 13:14
PROC: EV.TCAR (2024-01-06 13:00)
DX: Z79.02 Long term (current) use of antithrombotics/antiplatelets; I25.2 Old myocardial infarction; I25.10 Atherosclerotic heart disease of native coronary artery without angina pectoris; I65.21 Occlusion and stenosis of right carotid artery; I10 Essential (primary) hypertension; E03.9 Hypothyroidism, unspecified; I49.1 Atrial premature depolarization; E11.42 Type 2 diabetes mellitus with diabetic polyneuropathy; Z79.84 Long term (current) use of oral hypoglycemic drugs; I95.1 Orthostatic hypotension; Z87.891 Personal history of nicotine dependence; Z79.890 Hormone replacement therapy; I73.9 Peripheral vascular disease, unspecified; Z79.4 Long term (current) use of insulin; Z79.82 Long term (current) use of aspirin; Z88.1 Allergy status to other antibiotic agents

== ENCOUNTER 2024-05-03 08:19 | Inpatient (IN) ==
--- NOTE | 2024-04-05 11:32 | Anesthesiology Consultation ---
Date of Service April 05, 2024 Assessment & Plan (1) Encounter for pre-operative examination: Chart Review Chart Review: Acceptable Risk for Surgery (pending review of most recent cardio note) and Patient NOT seen in Pre Admission Testing - Please obtain most recent cardio note (Dr. Mosquera - [facility]- last seen 12/2023 per patient) - Check BSG AM DOS Patient with recent pRCA cardiac stent 09/04/23- on DAPT- denies SOB with stairs as of PAT nursing interview 04/01/24. Follows with cardio- cardio aware of carotid disease and that patient following with Dr. Gonzalez. Prior to right TCAR 01/06/24- procedure discussed with Dr. Bah- due to nature of procedure- patient was okay to proceed as scheduled under [facility] and underwent right TCAR 01/06/24. -Ozempic instructions: Patient informed by PAT nursing to stop 7 days prior to surgery. Patient advised by PAT nursing to check with prescriber to see if alternative diabetic management changes recommended while holding Ozempic- if so, patient to call back to PAT to update chart and discuss if any further preop medication instructions needed. Last dose of Ozempic 04/02/24- will be off Ozempic x 10 days by DOS on 04/12/24 -Infectious Disease screening: Per PAT nursing assessment on 04/01/24. No known infectious disease contacts in past 10 days or current infectious disease symptoms. No recent travel outside the country. Right TCAR 01/06/24= Done under [facility] with Grade 2 view with Gomez #2. ETT #7.0 Per anesthesia progress note= "Patient requiring phenylephrine infusion to maintain appropriate post TCAR blood pressure. She is conversant and c/o mild neck pain. Otherwise she states she is doing well. Appropriate for transfer to ICU." Per cardiology progress note 01/08/24= " It was unclear exactly why she became hypotensive but she is probably having some amount of prolonged vagal response to carotid manipulation coupled with anesthesia. She did have a slight drop in her hgb but this is likely largely dilutional as she is up 5 L. Treated with Sudafed and midodrine. History Surgery Operation Date: 04/12/24 09:50 Proposed Procedures p Left Transcarotid Artery Revascularization - Sanya Gonzalez MD Height/Weight Height: 5 ft 6 in Weight: 103.419 kg Allergies Allergy/AdvReac Type Severity Reaction Status Date / Time metformin Allergy Unknown Nausea Verified 04/01/24 14:02 wheat Allergy Unknown throat Verified 04/01/24 14:02 tightness erythromycin base AdvReac Unknown Nausea Verified 04/01/24 14:02 Medications Home Medications Medication Instructions Recorded Confirmed Last Taken aspirin 81 mg tablet 81 mg PO QAM 12/07/18 04/01/24 01/06/24 06:00 cholecalciferol (vitamin D3) 50 2,000 units PO HS #1 cap 12/07/18 04/01/24 01/05/24 21:00 mcg (2,000 unit) capsule citalopram 20 mg tablet (Celexa) 20 mg PO HS 12/07/18 04/01/24 01/05/24 21:00 lancets 25 gauge #100 ea 12/07/18 03/22/24 Unknown atenolol 25 mg tablet 12.5 mg PO BID 08/06/20 04/01/24 01/06/24 06:00 gabapentin 300 mg capsule 300 - 600 mg PO TID 07/15/21 04/01/24 01/06/24 06:00 600 mg potassium chloride 10 mEq 10 meq PO HS 07/15/21 04/01/24 01/05/24 21:00 capsule,extended release venlafaxine 37.5 mg 37.5 mg PO HS 07/31/22 04/01/24 01/05/24 21:00 capsule,extended release 24 hr (Effexor XR) magnesium oxide 800 mg PO Q2D 12/16/22 04/01/24 01/05/24 21:00 pen needle, diabetic 32 gauge x #500 ea 07/24/23 03/22/24 Unknown 5/32" (BD Ultra-Fine Rebeca Pen Needle) OneTouch Ultra Test (blood sugar #100 ea 08/18/23 03/22/24 Unknown diagnostic) blood-glucose sensor (Dexcom G7 08/27/23 03/22/24 Unknown Sensor device) fenofibrate nanocrystallized 145 145 mg PO HS 08/27/23 04/01/24 01/05/24 21:00 mg tablet levothyroxine 50 mcg tablet 50 mcg PO QAM 90 days #90 tabs 08/27/23 04/01/24 01/05/24 06:00 nitroglycerin 0.4 mg sublingual 0.4 mg sublingual UD PRN Chest Pain 08/27/23 04/01/24 Unknown tablet cyanocobalamin (vitamin B-12) 1,000 mcg PO HS 12/29/23 04/01/24 01/05/24 21:00 1,000 mcg tablet (Vitamin B-12) insulin glargine 100 unit/mL (3 36 unit subcut HS 12/29/23 04/01/24 01/05/24 21:00 mL) subcutaneous pen (Basaglar 34 units KwikPen U-100 Insulin) losartan 50 mg-hydrochlorothiazide 1 tab PO HS 12/29/23 04/01/24 01/06/24 06:00 12.5 mg tablet pantoprazole 40 mg tablet,delayed 40 mg PO HS 12/29/23 04/01/24 01/05/24 21:00 release ticagrelor 90 mg tablet (Brilinta) 90 mg PO BID 01/06/24 04/01/24 01/06/24 06:00 oxycodone-acetaminophen 5 mg-325 1 - 2 tab PO Q4H PRN pain #12 tabs 01/08/24 04/01/24 Unknown mg tablet (Percocet) rosuvastatin 40 mg tablet (Crestor) 40 mg PO HS #90 tabs 03/21/24 04/01/24 Unknown insulin aspart U-100 100 unit/mL 20 unit subcut DAILY 03/22/24 04/01/24 Unknown (3 mL) subcutaneous pen (Novolog FlexPen U-100 Insulin aspart) semaglutide 1 mg/dose (4 mg/3 mL) 1 mg (0.75 mL) subcut Q7D 90 days 03/22/24 04/01/24 Unknown subcutaneous pen injector #9 mL Past Medical History Medical History (Updated 04/05/24 @ 11:32 by Anabell Atkinson PA-C) Anxiety CAD (coronary artery disease) s/p mid RCA stent 2009 s/p stent to RCA 09/04/23 (also with moderate 50% LAD disease in mid vessel) Carotid artery disease - Per 12/11/23 neck CTA "at least 90% stenosis with near occlusion involving the proximal cervical segments of the internal carotid arteries bilaterally, right greater than left." - S/p Right TCAR 01/06/24 Chronic back pain Depression Diabetes mellitus type 2, insulin dependent Diabetic peripheral neuropathy Dyslipidemia GERD (gastroesophageal reflux disease) History of paresthesia Hx of myocardial infarction Hypertension PAC (premature atrial contraction) follows w/ Ayesha Mosquera PAD (peripheral artery disease) - carotid and lower extremity artery disease Subclinical hypothyroidism Past Surgical History Surgical History (Updated 04/05/24 @ 11:45 by Anabell Atkinson PA-C) History of bilateral tubal ligation History of esophagogastroduodenoscopy (EGD) History of transcarotid artery revascularization (TCAR) - Right TCAR 01/06/24= Done under [facility] with Grade 2 view with Gomez #2. ETT #7.0 - Per anesthesia progress note= "Patient requiring phenylephrine infusion to maintain appropriate post TCAR blood pressure. She is conversant and c/o mild neck pain. Otherwise she states she is doing well. Appropriate for transfer to ICU." Hx laparoscopic cholecystectomy Hx of cardiac cath 05/09/09, "felt a burning feeling in chest/back," [facility], x1 stent 09/04/23, abn stress test, [facility], x1 stent; f/u dr. davidson, [facility] cardio Hx of section Hx of colonoscopy Hx of heart artery stent 05/09/09, "felt a burning feeling in chest/back," [facility], x1 stent 09/04/23, abn stress test, [facility], x1 stent; f/u dr. davidson, [facility] cardio Social History Smoking Status: Former smoker Do You Dip or Chew Tobacco: No Smoking End Date: quit ~2001 Hx Alcohol Use: No Hx Substance Use: No substance use type: does not use Lab Results Anesthesia Preop Results Results Anesthesia Widget: WBC 12.52 K/ul (4.8-10.8) H 04/04/24 Hgb 12.2 g/dl (12.0-16.0) 04/04/24 Hct 38.4 % (37.0-47.0) 04/04/24 Plt 301 K/uL (130-400) 04/04/24 Na 140 mmol/L (136-145) 04/04/24 K 3.9 mmol/L (3.5-5.1) 04/04/24 Cl 106 mmol/L (98-107) 04/04/24 CO2 26 mmol/L (21-32) 04/04/24 BUN 13 mg/dl (6-23) 04/04/24 Creat 0.82 mg/dl (0.6-1.2) 04/04/24 Glucose Level 113 mg/dl (70-99(Fasting)) H 04/04/24 PTT 28 Seconds (21-31) 04/04/24 TSH 3.714 uIU/mL (0.30-4.50) 03/18/24 Blood Type O Positive 04/04/24 Antibody Screen NEGATIVE 04/04/24 Testing Electrocardiogram Date: 01/07/24 SB with marked sinus arrhythmia at 53bpm Otherwise normal EKG per cardio Chest X-Ray Date: 01/06/24 Findings: + NAD Echocardiogram Date: 04/30/23 EF: 55-60% LV Function: normal Other Findings: + LVH (borderline/concentric) and + diastolic dysfunction (Grade I ) Unable to adequately estimate pulmonary artery pressure Stress Test Date: 04/30/23 Type: nuclear Based upon EKG criteria, this test is negative. Based upon the nuclear imaging findings there is inferior wall ischemia. It has changed from previous studies. Study is moderately abnormal (Had subsequent cardiac cath 09/04/23 (report unavailable) with placement of pRCA stent) Other Testing Neck CTA 12/11/23= Advanced atherosclerosis of the carotid bulbs results in high- grade narrowing of the proximal cervical segments bilaterally, right greater than left. Focal area of high-grade stenosis involves the V2 segment right vertebral artery at the level of the C4-C5 disc space, likely secondary to a lateral annular disc bulge.
--- NOTE | 2024-05-02 11:02 | History & Physical Report ---
Date of Service May 02, 2024 Assessment & Plan (1) Left carotid stenosis: Plan: Patient admitted for a left tcar. I have discussed the risks options and benefits of the procedure with the patient. The patient understands the risks options and benefits and agrees to the procedure. History of Present Illness Chief Complaint: Left internal carotid artery stenosis Primary Care Provider: Mahad Davis MD Ms. 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 Patient states that she developed pain in her low back and in her "sciatica" which then shoots down her legs when she is standing upright to a mbulate. If she is at the grocery store and has a cart to lean on, she is able to finish her grocery shopping without any problems. She also admits some severe chronic numbness and tingling in her lower legs and feet which is clearly related to her diabetes control, as it is worse when her blood sugars are out of control and improved when they are controlled. She denies any discoloration of the feet or toes, wounds on the feet or toes, rest pain, or other concerns. She denies any symptoms of cerebrovascular insufficiency including amaurosis, unilateral extremity weakness numbness or tingling, difficulty speaking or swallowing, facial droop, sudden onset confusion. She also denies headache, fever, chest pain, shortness of breath, abdominal pain, nausea, vomiting, other concerns. 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 She was found to have severe bilateral carotid artery stenosis. She underwent a right tcar in the past that was uneventful. She is now admitted for a left tcar. Allergies Allergy/AdvReac Type Severity Reaction Status Date / Time metformin Allergy Unknown Nausea Verified 04/01/24 14:02 wheat Allergy Unknown throat Verified 04/01/24 14:02 tightness erythromycin base AdvReac Unknown Nausea Verified 04/01/24 14:02 Home Medications Medication Instructions Recorded Confirmed Type aspirin 81 mg tablet 81 mg PO QAM 12/07/18 04/01/24 History cholecalciferol (vitamin D3) 50 2,000 units PO HS #1 cap 12/07/18 04/01/24 History mcg (2,000 unit) capsule citalopram 20 mg tablet (Celexa) 20 mg PO HS 12/07/18 04/01/24 History lancets 25 gauge #100 ea 12/07/18 03/22/24 History atenolol 25 mg tablet 12.5 mg PO BID 08/06/20 04/01/24 History gabapentin 300 mg capsule 300 - 600 mg PO TID 07/15/21 04/01/24 History potassium chloride 10 mEq 10 meq PO HS 07/15/21 04/01/24 History capsule,extended release venlafaxine 37.5 mg 37.5 mg PO HS 07/31/22 04/01/24 History capsule,extended release 24 hr (Effexor XR) magnesium oxide 800 mg PO Q2D 12/16/22 04/01/24 History pen needle, diabetic 32 gauge x #500 ea 07/24/23 03/22/24 Rx 5/32" (BD Ultra-Fine Rebeca Pen Needle) OneTouch Ultra Test (blood sugar #100 ea 08/18/23 03/22/24 Rx diagnostic) blood-glucose sensor ([email or web address] G7 08/27/23 03/22/24 History Sensor device) fenofibrate nanocrystallized 145 145 mg PO HS 08/27/23 04/01/24 History mg tablet levothyroxine 50 mcg tablet 50 mcg PO QAM 90 days #90 tabs 08/27/23 04/01/24 Rx nitroglycerin 0.4 mg sublingual 0.4 mg sublingual UD PRN Chest Pain 08/27/23 04/01/24 History tablet cyanocobalamin (vitamin B-12) 1,000 mcg PO HS 12/29/23 04/01/24 History 1,000 mcg tablet (Vitamin B-12) insulin glargine 100 unit/mL (3 36 unit subcut HS 12/29/23 04/01/24 History mL) subcutaneous pen (Bela Souza U-100 Insulin) losartan 50 mg-hydrochlorothiazide 1 tab PO HS 12/29/23 04/01/24 History 12.5 mg tablet pantoprazole 40 mg tablet,delayed 40 mg PO HS 12/29/23 04/01/24 History release ticagrelor 90 mg tablet (Brilinta) 90 mg PO BID 01/06/24 04/01/24 History oxycodone-acetaminophen 5 mg-325 1 - 2 tab PO Q4H PRN pain #12 tabs 01/08/24 04/01/24 Rx mg tablet (Percocet) rosuvastatin 40 mg tablet (Crestor) 40 mg PO HS #90 tabs 03/21/24 04/01/24 Rx insulin aspart U-100 100 unit/mL 20 unit subcut DAILY 03/22/24 04/01/24 History (3 mL) subcutaneous pen (Novolog FlexPen U-100 Insulin aspart) semaglutide 1 mg/dose (4 mg/3 mL) 1 mg (0.75 mL) subcut Q7D 90 days 03/22/2401/14 Rx subcutaneous pen injector #9 mL Past Med/Surg History Problem List (Updated 05/02/24 @ 11:01 by Sanya Gonzalez MD) Left carotid stenosis Encounter for pre-operative examination PAC (premature atrial contraction) Previous inferior myocardial infarction older than 8 weeks Hypotension Stenosis of right carotid artery Albuminuria Depression Type 2 diabetes mellitus with insulin therapy Paresthesias Arteriosclerotic cardiovascular disease (Acute) Diabetic peripheral neuropathy (Acute) Dyslipidemia (Acute) Hypertension (Acute) Obesity (Acute) Subclinical hypothyroidism (Acute) Vitamin D deficiency (Acute) Medical History Hx of myocardial infarction PAC (premature atrial contraction) follows w/ Ayesha Mosquera Chronic back pain CAD (coronary artery disease) s/p mid RCA stent 2009 s/p stent to RCA 09/04/23 (also with moderate 50% LAD disease in mid vessel) PAD (peripheral artery disease) - carotid and lower extremity artery disease Carotid artery disease - Per 12/11/23 neck CTA "at least 90% stenosis with near occlusion involving the proximal cervical segments of the internal carotid arteries bilaterally, right greater than left." - S/p Right TCAR 01/06/24 History of paresthesia GERD (gastroesophageal reflux disease) Subclinical hypothyroidism Hypertension Dyslipidemia Diabetic peripheral neuropathy Anxiety Diabetes mellitus type 2, insulin dependent Depression Surgical History History of transcarotid artery revascularization (TCAR) - Right TCAR 01/06/24= Done under [facility] with Grade 2 view with Gomez #2. ETT #7.0 - Per anesthesia progress note= "Patient requiring phenylephrine infusion to maintain appropriate post TCAR blood pressure. She is conversant and c/o mild neck pain. Otherwise she states she is doing well. Appropriate for transfer to ICU." History of bilateral tubal ligation Hx of section Hx laparoscopic cholecystectomy History of esophagogastroduodenoscopy (EGD) Hx of colonoscopy Hx of heart artery stent 05/09/09, "felt a burning feeling in chest/back," [facility], x1 stent 09/04/23, abn stress test, [facility], x1 stent; f/u dr. davidson, [facility] Hx of cardiac cath 05/09/09, "felt a burning feeling in chest/back," [facility] [place], x1 stent 09/04/23, abn stress test, [facility], x1 stent; f/u dr. davidson, [facility] cardio Social History Smoking Status: Former smoker Second Hand Exposure: No; Do You Dip or Chew Tobacco: No; Hx Alcohol Use: No Hx Substance Use: No Preferred Language: Icelandic Communication Ability: Effective Business Control Specialist Required: No Beliefs That Will Affect Care: None Current Living Situation: Spouse Feels Safe at Home: Yes Assistive Devices: Cane and Glasses Physical Exam Physical Exam: Constitutional: In general patient is an obese but healthy-appearing well- nourished developed elderly female in no distress. She is alert and oriented but in focal deficits. Her head is normocephalic and atraumatic. Her right carotid does demonstrate a bruit, her left does not. Her heart is regular, her lungs are decreased throughout but are clear. Her abdomen is soft and nontender with active bowel sounds in all 4 quadrants. Brachial and radial pulses are +3. Femoral pulses are +3. Right DP pulses +1, PT pulses +2. Left DP and PT pulses are +1. She has brisk capillary refill and no sign of distal ischemia. She has trace to 1+ edema at the ankles.
[~2024-05-03 08:19] MED LIST changes: +ALBUMIN HUMAN 5% 12.5 GM/250 ML VIAL IV ONE; -DEXAMETHASONE SOD INJ 4 MG/ML VIAL ONE; -GLYCOPYRROLATE 0.2 MG/ML VIAL ONE; -HEPARIN SOD (PORCINE) 1000 UNIT/ML ONE; -LIDOCAINE 2% 2 ML VIAL/AMP(20MG/ML) INFIL ONE; -MIDAZOLAM HCL 1 MG/ML 2ML VIAL ONE; -NITROGLYCERIN 5 MG/ML 10 ML VIAL ONE; -ONDANSETRON INJ 2 MG/ML 2 ML VIAL ONE; -PROPOFOL IV EMULSION 10 MG/ML 20 ML VIAL IV ONE; -PROTAMINE SULFATE 10 MG/ML 5 ML VIAL IV ONE; -ROCURONIUM BROMIDE 10 MG/ML 5 ML VIAL IV ONE; -SUGAMMADEX SODIUM 200 MG/2 ML VIAL IV ONE; +ceFAZolin 2000MG 2,000 MG/15 ML SYR IV SCH; -fentaNYL citrate PF 100 MCG/2 ML VIAL ONE
[2024-05-03 09:35] LABS: Basophils # (auto) 0.04 K/uL (0.00-0.20); Basophils % (auto) 0.3 %; Eosinophils # (auto) 0.19 K/uL (0.00-0.50); Eosinophils % (auto) 1.6 %; Hematocrit (blood only) 38.7 % (37.0-47.0); Hemoglobin 12.3 g/dl (12.0-16.0); Immature Granulocytes # (auto) 0.03 K/uL (0.01-0.20); Immature Granulocytes % (auto) 0.3 %; Lymphocytes # (auto) 4.02 K/uL (1.20-3.40); Lymphocytes % (auto) 33.8 %; Mean Corpuscular Hgb Conc 31.8 g/dL (32.0-36.0); Mean Corpuscular Volume 85.1 fL (80.0-100.0); Monocytes # (auto) 0.67 K/uL (0.11-0.59); Monocytes % (auto) 5.6 %; Neutrophils # (auto) 6.95 K/uL (1.40-6.50); Neutrophils % (auto) 58.4 %; Platelet Count 292 K/uL (130-400); RDW Standard Deviation 43.5 fL (36.4-46.3); Red Blood Count 4.55 M/uL (4.20-5.40)
[2024-05-03 09:41] LABS: BUN Creatinine Ratio 21.6 (10-20); Calcium 9.7 mg/dl (8.6-10.3); Creatinine Clr Calc Pharmacy 84.7 ml/min; Potassium 3.7 mmol/L (3.5-5.1)
[2024-05-03] MEDS: SODIUM CHLORIDE 0.9% 1,000 ML IV SCH (09:46)
[2024-05-03 09:54] LABS: Prothrombin Time 10.9 Seconds (9.0-12.0)
[2024-05-03] MEDS ORDERED: NALOXONE HCL 0.4 MG/1 ML VIAL/CARP IV PRN (10:29)
[2024-05-03] MEDS ORDERED: ePHEDrine sulfate 50 MG/ML AMP IV PRN (10:29)
[2024-05-03] MEDS ORDERED: fentaNYL citrate PF 100 MCG/2 ML VIAL IV PRN (10:29)
[2024-05-03] MEDS ORDERED: PROMETHAZINE HCL 6.25 MG in SODIUM CHLORIDE 0.9% 50 ML IV PRN (10:29)
[2024-05-03] MEDS ORDERED: ATROPINE SULFATE 0.1 MG/ML 10ML SYR IV PRN (10:29)
[2024-05-03] MEDS ORDERED: ONDANSETRON INJ 2 MG/ML 2 ML VIAL IV PRN (10:29)
[2024-05-03] MEDS ORDERED: FLUMAZENIL 0.1 MG/1 ML 10 ML VIAL IV PRN (10:29)
--- NOTE | 2024-05-03 10:50 | History & Physical Bridge Note ---
Date of Service May 03, 2024 History & Physical Bridge Note Patient for left tcar today. I have discussed the risks options and benefits of the procedure with the patient. The patient understands the risks options and benefits and agrees to the procedure. I have examined the patient, reviewed the History & Physical and in the interval since the performance of the History & Physical I have noted the following changes of clinical significance: no changes noted
[2024-05-03] MEDS ORDERED: MIDAZOLAM HCL 1 MG/ML 2ML VIAL ONE (10:51)
[2024-05-03] MEDS ORDERED: fentaNYL citrate PF 100 MCG/2 ML VIAL ONE ×2 (10:51→12:29)
[2024-05-03] MEDS ORDERED: DEXAMETHASONE SOD INJ 4 MG/ML VIAL ONE (10:52)
[2024-05-03] MEDS ORDERED: ROCURONIUM BROMIDE 10 MG/ML 5 ML VIAL IV ONE (10:52)
[2024-05-03] MEDS ORDERED: PROPOFOL IV EMULSION 10 MG/ML 20 ML VIAL IV ONE (10:52)
[2024-05-03] MEDS ORDERED: LIDOCAINE 2% 2 ML VIAL/AMP(20MG/ML) INFIL ONE (10:52)
[2024-05-03] MEDS ORDERED: GLYCOPYRROLATE 0.2 MG/ML VIAL ONE (10:52)
[2024-05-03] MEDS ORDERED: ONDANSETRON INJ 2 MG/ML 2 ML VIAL ONE (10:52)
[2024-05-03] MEDS: ceFAZolin 2000MG 2,000 MG/15 ML SYR IV SCH ×2 (11:47→20:42)
[2024-05-03] MEDS ORDERED: HEPARIN SOD (PORCINE) 1000 UNIT/ML ONE (12:47)
[2024-05-03] MEDS ORDERED: VASOPRESSIN 20 UNIT/ML VIAL ONE (12:49)
[2024-05-03] MEDS: GELATIN SPONGE SZ 100 ONE (12:51)
[2024-05-03] MEDS: HEPARIN (PORCINE) 1000 UNIT/ML 10 ML (CATH LAB USE ONLY) ONE (12:52)
[2024-05-03] MEDS: BUPIVACAINE/EPINEPHRINE 0.5% MPF 1:200,000 30 ML VIAL ONE (12:52)
[2024-05-03] MEDS: THROMBIN FOR SOLN 20000 UNIT KIT ONE (12:52)
[2024-05-03] MEDS ORDERED: ESMOLOL HCL INJ 10 MG/ML 10ML VIAL IV ONE (13:01)
[2024-05-03] MEDS ORDERED: ATROPINE SULFATE 0.4 MG/ML 1 ML VIAL ONE (13:04)
[2024-05-03] MEDS: VISIPAQUE IV ONE (13:10)
[2024-05-03] MEDS ORDERED: PROTAMINE SULFATE 10 MG/ML 5 ML VIAL IV ONE (13:11)
[2024-05-03] MEDS ORDERED: SUGAMMADEX SODIUM 200 MG/2 ML VIAL IV ONE (13:20)
[2024-05-03] MEDS: ceFAZolin 330 MG/ML 1 GM VIAL ONE (13:30)
--- NOTE | 2024-05-03 13:30 | Procedure Note ---
Angiogram Post Procedure Fluoroscopy Time (minutes): 2.6 Radiation (mGy): 59 Contrast: 9 Post Operative Report Pre & Post Diagnosis Operation Date: 05/03/24 10:15 Pre-Op Diagnosis: Left Internal Carotid Artery Stenosis Post-Op Diagnosis: Left Internal Carotid Artery Stenosis I identified the patient and participated in the time-out.: Yes Procedure Operation Date: 05/03/24 10:15 Actual Procedures p Left Transcarotid Artery Revascularization, Ultrasound right common femoral vein(Left) - Sanya Gonzalez MD Surgeon Sanya Gonzalez MD Force Adjustment Supervisor Nicolle,PAC Estimated Blood Loss 20 Findings Consistent with Post-Op Diagnosis Specimens none Anesthesia Type General Disposition Accompanied Patient To Recovery: No Disposition: Recovery Room Indications This is 73-year-old female was found to have bilateral severe carotid stenosis. She had a TCAR procedure recently which was uneventful. She is now here for left TCAR. I have discussed the risks options and benefits of the procedure with the patient. The patient understands the risks options and benefits and agrees to the procedure. Description of Procedure The patient was taken to the operating room and placed in supine position. After general anesthesia was accomplished the groins and left side of the neck and chest were prepped and draped in a sterile manner. Timeout was performed and the patient was identified. A transverse incision was made just above the clavicle between the heads of the sternocleidomastoid. This is carried down to where the common carotid artery was identified. It was isolated. It was slung with umbilical tape. Next the U stitch was placed in the common carotid artery with a 5-0 Prolene suture. Patient was given 80859 heparin at that time. Ultrasound was then used to localize the left common femoral vein. The vein was patent and compressed easily. Under ultrasound guidance the right common femoral vein was punctured and the venous sheath was inserted. This was aspirated and flushed with heparinized saline. ACT at that time was 292. Using micropuncture technique the common carotid artery was punctured. The micro sheath was inserted to 3 cm. Injection was then done showing the bifurcation. There was a significant lesion seen at the origin of the internal carotid artery on the left side. We then inserted the J-wire left and short of the lesion. The micro sheath was removed and the TCAR sheath was inserted. Once it was in place and held against the artery it was sutured to the chest wall and the puncture site edge. We then flushed the tubing appropriately. The venous return to was clamped onto the TCAR sheath. It was flushed through and then att ached to the venous inflow sheath in the left groin. Sheath was checked for flow. The saline cleared nicely. The common carotid artery was then clamped. Flow reversal was instituted.The flow reversal was again checked for flow and found to have good flow after clamping. We inserted a 5.5 x 25 balloon backloaded on the wire. The wire was passed through the lesion into the petrous portion of the internal carotid. The 5.5 balloon was then advanced to the lesion. Lesion was then predilated with a 5.5 mm balloon. Balloon was removed. We then inserted the 9/7 x 30 stent. This was deployed across the lesion without difficulty. The catheter was removed. Appeared to be still a slight amount of narrowing at the midportion of the stent. We then inserted a 5.5 x 25 balloon and redilated this area. Widely patent stent was then noted on fluoroscopy. The carotid was allowed to go 2 minutes with flow reversal. Completion angiogram was done at that time which showed a widely patent carotid stent. At that point the common carotid artery was unclamped. The venous return tubing was clamped and removed from the TCAR sheath. The blood was allowed to flow back into the venous system. The TCAR sheath was then removed and the 5-0 Prolene suture securely tied. The patient was given 25 mg of protamine. Hemostasis was noted of the puncture site. An ACT was then drawn. The ACT was 135. The sheath was pulled from the groin and pressure was applied. Wound was irrigated with saline solution. Adequate hemostasis was obtained of the wound. Once this was noted the wound was closed in usual fashion using a 3- 0 Vicryl suture for the subcutaneous layer and a 4-0 subcuticular Vicryl suture for the skin edges. Dermabond was used for dressing. The patient left the operation room in satisfactory condition and tolerated the procedure well. All needle and sponge counts were correct at the end of the procedure. Vero Licea Pac assisted due to lack of resident availability and was necessary for positioning, draping, retraction, wound closure deep layers, subcutaneous tissue, and skin closure and was necessary for assisting with the case. I attest to the content of the Intraoperative Record and any orders documented therein. Any exceptions are noted below.
--- OUTSIDE RECORDS SUMMARY | 2024-05-03 13:45 | External Medical Summary | Continuity of Care Document ---
Author Name Unknown Organization [facility] [address] Address [address] [place], [place] [id number] Care Team Providers Care Optimization Consultant Name Role Phone SusanMahad gallardo Denise Primary Care Physician [phone] Encounter [facility] ANURADHAR [id number] Date(s): 04/04/24 - 04/04/24 [facility] [address], [address] [place] [address] [phone] Discharge Disposition: Home or Self Care Attending Physician: SAMARA Licea Lynn Referring Physician: SAMARA Licea Lynn Allergies, Adverse Reactions, Alerts Substance Criticality Severity [...] once daily Start Date: 10/09/23 Status: Ordered Brilinta (ticagrelor) 90 mg oral tablet Start: 01/04/24 12:47:00 PM EDT, 1 tab, PO, bid, Disp# 181 tab, Refills: 3, Take 2 tabs (180mg) THIS MORNING, then 1 tab bid., called to pharmacy Start Date: 01/04/24 Status: Ordered CeleXA 20 mg oral tablet [...] mL, Supply Start Date: 10/09/23 Status: Ordered Protonix 20 [...] mellitus Confirmed Active Vertigo Confirmed Active Results Radiology Reports * Exam Date Time Procedure Performing Provider Status 04/04/24 9:27 AM VL Carotid Duplex Bilateral [facility] anju Jonas R; Final Notes: (VL Carotid Duplex Bilateral) Reason For Exam: isaiah VL Carotid Duplex Bilateral [facility] FINAL REPORT Name: EVER FUNEZ : 1950 Visit: [id number] Date: 04 Apr 2024 TYPE OF TEST: Cerebrovascular Duplex REASON FOR TEST R ICA TCAR and known L ICA stenosis - initial duplex INTERPRETATION/FINDINGS Arterial duplex imaging of the bilateral carotid arteries was performed. 1. Patent right distal common carotid, proximal internal carotid artery stent without evidence of restenosis. 2. 60-69% stenosis in the left internal carotid artery. Densely calcified plaque causing acoustic shadowing may underestimate the velocities. 3. >50% stenosis in the bilateral external carotid arteries. 4. Antegrade flow in bilateral vertebral arteries 5. Normal flow in both subclavian arteries. Plaque Morphology: Complex, calcified plaque in the left bulb and proximal ICA. Retrospective Comparison: No prior duplex exams available for comparison. IMPRESSION/COMMENTS I have personally reviewed the data relevant to the interpretation of this study. TECHNOLOGIST: TERE Doty,RDMS,RVT PHYSICIAN: Sanya Gonzalez M.D. Signed: 04/04/2024 02:22 PM Final Dictated by:MD Gonzalez Eugene J Dictated DT/TM:04/04/2024 2:22 Signed by:MD Gonzalez Eugene J Signed (Electronic Signature):04/04/2024 2:22 p Transcribed by:REINALDO Social History Social History Type Response Smoking Status Former Smoker, quit > 1 yr Sex Female Sex Representation Female (finding) Patient Care team information Care Team Personnel Name: MD Davis Ryan A Position: Referring Member Role: Primary Care Provider Address: [place] [address] [place] Name: SAMARA Licea Lynn Position: Physician Summer Child Caregiver Exempt - Vasc Surg Member Role: Lifetime Relationship [address]: [address] [place] [address], [place] [address] [place]
[2024-05-03] MEDS: ALBUMIN 5% 250 ML IV ONE (14:23)
--- NOTE | 2024-05-03 16:01 | Anesthesiology Progress Note ---
Date of Service May 03, 2024 Anesthesia Post Procedure Vital Signs Vital Signs: Temp Pulse Pulse Resp BP BP Pulse Ox 05/03/24 15:30 86 16 104/62 95/45 L 96 05/03/24 15:20 82 17 111/61 95/44 L 95 05/03/24 15:10 85 16 116/55 L 99/45 L 95 05/03/24 15:00 36.7 C 88 19 120/67 107/46 L 95 05/03/24 14:50 90 15 116/57 L 114/48 L 96 05/03/24 14:40 89 17 118/56 L 108/45 L 96 05/03/24 14:30 90 17 108/60 108/46 L 94 05/03/24 14:20 89 15 94/53 L 106/43 L 94 05/03/24 14:10 89 14 108/48 L 103/42 L 93 05/03/24 14:00 93 H 16 119/54 L 120/45 L 98 05/03/24 13:51 36.3 C L 95 H 18 107/54 L 130/49 L 98 05/03/24 09:34 36.7 C 88 20 152/87 H 152/82 H 98 O2 Del Method O2 Flow Rate 05/03/24 15:30 Nasal Cannula 2 05/03/24 15:20 Nasal Cannula 2 05/03/24 15:10 Nasal Cannula 2 05/03/24 15:00 Nasal Cannula 2 05/03/24 14:50 Nasal Cannula 2 05/03/24 14:40 Nasal Cannula 2 05/03/24 14:30 Nasal Cannula 2 05/03/24 14:20 Nasal Cannula 2 05/03/24 14:10 Nasal Cannula 2 05/03/24 14:00 Oxymask 5 05/03/24 13:51 Oxymask 5 05/03/24 09:34 Room Air Pain Intensity Left Neck: Pain Intensity: 4 Transfer of Care Handoff Completed per policy Notes Mental Status: alert / awake / arousable Patient Amnestic to Procedure: Yes Nausea / Vomiting: adequately controlled Pain: adequately controlled Airway Patency, RR, SpO2: stable & adequate BP & HR: stable & adequate Hydration State: stable & adequate Anesthetic Complications: no major complications apparent
[2024-05-03] MEDS ORDERED: PHARMACY GLYCEMIC MGMT CONSULT PRN (16:05)
[2024-05-03] MEDS ORDERED: STAT IV Infusion **Titration per Protocol STA (16:05)
[2024-05-03] MEDS ORDERED: NON-FORMULARY MEDICATION (Semaglutide 1 mg/dose (4 mg/3 mL) pen injector) SQ SCH (16:05)
[2024-05-03] MEDS ORDERED: NITROGLYCERIN SL 0.4 MG/TAB TAB SL PRN (16:05)
[2024-05-03 16:10] VITALS: TEMP 98.2
[2024-05-03] MEDS: PHENYLEPHRINE/NSS 25 MG/250 ML BAG IV PRN (16:26)
[2024-05-03] MEDS: LACTATED RINGER'S 1,000 ML IV SCH (16:29)
--- NOTE | 2024-05-03 16:45 | Critical Care Consultation ---
Date of Consultation May 03, 2024 Assessment & Plan (1) Stenosis of right carotid artery: (2) Type 2 diabetes mellitus with insulin therapy: (3) Hypertension: Plan Impression: 73-year-old female with asymptomatic carotid stenosis status post TCAR on the left Recommendations: 1. Carotid stenosis status post left TCAR: Management per vascular surgery. Blood pressure goals per vascular surgery. 2. Hypertension: On a low-dose of Rafael-Synephrine currently. Will attempt to wean off as tolerated. May consider the addition of midodrine. Holding antihypertensives for now but will restart as tolerated by blood pressure. 3. Diabetes: Continue outpatient medications. Patient's remaining critical care issues have been well addressed by the vascular surgery service. Will continue to follow in the ICU overnight. Feel free to contact us with questions or concerns History of Present Illness Attending Physician: Sanya Gonzalez MD History of Present Illness Asked by vascular surgery to assist in which this patient status post TCAR. Patient is known to me from prior admissions back in December where she underwent right TCAR. 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 She recovered well from her initial procedure and presents today for TCAR on the left. The patient completed her procedure without too much difficulty. In the PACU she was noted to have slightly low blood pressures requiring albumin support. She is brought back to the ICU. She is awake alert and conversant. Blood pressures did respond to initiation of Rafael-Synephrine. Allergies Allergy/AdvReac Type Severity Reaction Status Date / Time metformin Allergy Unknown Nausea Verified 05/03/24 09:19 wheat Allergy Unknown throat Verified 05/03/24 09:19 tightness erythromycin base AdvReac Unknown Nausea Verified 05/03/24 09:19 Home Medications Medication Instructions Recorded Confirmed Type aspirin 81 mg tablet 81 mg PO QAM 12/07/18 05/03/24 History cholecalciferol (vitamin D3) 50 2,000 units PO HS #1 cap 12/07/18 05/03/24 History mcg (2,000 unit) capsule citalopram 20 mg tablet (Celexa) 20 mg PO HS 12/07/18 05/03/24 History lancets 25 gauge #100 ea 12/07/18 03/22/24 History atenolol 25 mg tablet 12.5 mg PO BID 08/06/20 05/03/24 History gabapentin 300 mg capsule 300 - 600 mg PO TID 07/15/21 05/03/24 History potassium chloride 10 mEq 10 meq PO HS 07/15/21 05/03/24 History capsule,extended release venlafaxine 37.5 mg 37.5 mg PO HS 07/31/22 05/03/24 History capsule,extended release 24 hr (Effexor XR) magnesium oxide 800 mg PO Q2D 12/16/22 05/03/24 History pen needle, diabetic 32 gauge x #500 ea 07/24/23 03/22/24 Rx 5/32" (BD Ultra-Fine Rebeca Pen Needle) OneTouch Ultra Test (blood sugar #100 ea 08/18/23 03/22/24 Rx diagnostic) blood-glucose sensor ([facility] G7 08/27/23 03/22/24 History Sensor device) fenofibrate nanocrystallized 145 145 mg PO HS 08/27/23 05/03/24 History mg tablet levothyroxine 50 mcg tablet 50 mcg PO QAM 90 days #90 tabs 08/27/23 05/03/24 Rx nitroglycerin 0.4 mg sublingual 0.4 mg sublingual UD PRN Chest Pain 08/27/23 05/03/24 History tablet cyanocobalamin (vitamin B-12) 1,000 mcg PO HS 12/29/23 05/03/24 History 1,000 mcg tablet (Vitamin B-12) insulin glargine 100 unit/mL (3 36 unit subcut HS 12/29/23 05/03/24 History mL) subcutaneous pen (Bela Souza U-100 Insulin) losartan 50 mg-hydrochlorothiazide 1 tab PO HS 12/29/23 05/03/24 History 12.5 mg tablet pantoprazole 40 mg tablet,delayed 40 mg PO HS 12/29/23 05/03/24 History release ticagrelor 90 mg tablet (Brilinta) 90 mg PO BID 01/06/24 05/03/24 History oxycodone-acetaminophen 5 mg-325 1 - 2 tab PO Q4H PRN pain #12 tabs 01/08/24 05/03/24 Rx mg tablet (Percocet) rosuvastatin 40 mg tablet (Crestor) 40 mg PO HS #90 tabs 03/21/24 05/03/24 Rx insulin aspart U-100 100 unit/mL 20 unit subcut DAILY 03/22/24 05/03/24 History (3 mL) subcutaneous pen (Novolog FlexPen U-100 Insulin aspart) semaglutide 1 mg/dose (4 mg/3 mL) 1 mg (0.75 mL) subcut Q7D 90 days 03/22/24 05/03/24 Rx subcutaneous pen injector #9 mL Patient History Medical History Hx of myocardial infarction PAC (premature atrial contraction) follows w/ Ayesha Mosquera Chronic back pain CAD (coronary artery disease) s/p mid RCA stent 2009 s/p stent to RCA 09/04/23 (also with moderate 50% LAD disease in mid vessel) PAD (peripheral artery disease) - carotid and lower extremity artery disease Carotid artery disease - Per 12/11/23 neck CTA "at least 90% stenosis with near occlusion involving the proximal cervical segments of the internal carotid arteries bilaterally, right greater than left." - S/p Right TCAR 01/06/24 History of paresthesia GERD (gastroesophageal reflux disease) Subclinical hypothyroidism Hypertension Dyslipidemia Diabetic peripheral neuropathy Anxiety Diabetes mellitus type 2, insulin dependent Depression Surgical History History of transcarotid artery revascularization (TCAR) - Right TCAR 01/06/24= Done under [facility] with Grade 2 view with Gomez #2. ETT #7.0 - Per anesthesia progress note= "Patient requiring phenylephrine infusion to maintain appropriate post TCAR blood pressure. She is conversant and c/o mild neck pain. Otherwise she states she is doing well. Appropriate for transfer to ICU." History of bilateral tubal ligation Hx of section Hx laparoscopic cholecystectomy History of esophagogastroduodenoscopy (EGD) Hx of colonoscopy Hx of heart artery stent 05/09/09, "felt a burning feeling in chest/back," [facility], x1 stent 09/04/23, abn stress test, [facility], x1 stent; f/u dr. davidson, [facility] cardio Hx of cardiac cath 05/09/09, "felt a burning feeling in chest/back," [facility], x1 stent 09/04/23, abn stress test, [facility], x1 stent; f/u dr. 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 No additions or deletions Physical Exam Constitutional: WD/WN, vitals as above Neck: trachea midline, no thyromegaly Respiratory: normal respiratory effort, lungs clear to auscultation Cardiovascular: RRR, no murmur, no edema Gastrointestinal (Abdomen): normal bowel sounds, soft, nontender, no hepatosplenomegaly Musculoskeletal: Extremities: extremities normal to inspection Skin: no rashes, warm and dry Lymphatic: no cervical lymphadenopathy Results & Data Results & Data Vital Signs (Past 12 Hours) Vital Signs Temp Pulse Pulse Pulse Resp BP BP 05/03/24 16:06 77 13 05/03/24 16:03 36.8 C 05/03/24 15:54 100/57 L 05/03/24 15:54 100/57 L 05/03/24 15:54 100/57 L 05/03/24 15:54 81 20 05/03/24 15:30 86 16 104/62 05/03/24 15:20 82 17 111/61 05/03/24 15:10 85 16 116/55 L 05/03/24 15:00 36.7 C 88 19 120/67 05/03/24 14:50 90 15 116/57 L 05/03/24 14:40 89 17 118/56 L 05/03/24 14:30 90 17 108/60 05/03/24 14:20 89 15 94/53 L 05/03/24 14:10 89 14 108/48 L 05/03/24 14:00 93 H 16 119/54 L 05/03/24 13:51 36.3 C L 95 H 18 107/54 L 05/03/24 09:34 36.7 C 88 20 152/87 H BP Pulse Ox O2 Del Method O2 Flow Rate 05/03/24 16:06 96 Nasal Cannula 2 05/03/24 16:03 05/03/24 15:54 05/03/24 15:54 05/03/24 15:54 05/03/24 15:54 92 05/03/24 15:30 95/45 L 96 Nasal Cannula 2 05/03/24 15:20 95/44 L 95 Nasal Cannula 2 05/03/24 15:10 99/45 L 95 Nasal Cannula 2 05/03/24 15:00 107/46 L 95 Nasal Cannula 2 05/03/24 14:50 114/48 L 96 Nasal Cannula 2 05/03/24 14:40 108/45 L 96 Nasal Cannula 2 05/03/24 14:30 108/46 L 94 Nasal Cannula 2 05/03/24 14:20 106/43 L 94 Nasal Cannula 2 05/03/24 14:10 103/42 L 93 Nasal Cannula 2 05/03/24 14:00 120/45 L 98 Oxymask 5 05/03/24 13:51 130/49 L 98 Oxymask 5 05/03/24 09:34 152/82 H 98 Room Air Critical Care Results & Data Vital Signs (Past 12 Hours) Vital Signs Temp Pulse Pulse Pulse Resp BP BP 05/03/24 16:06 77 13 05/03/24 16:03 36.8 C 05/03/24 15:54 100/57 L 05/03/24 15:54 100/57 L 05/03/24 15:54 100/57 L 05/03/24 15:54 81 20 05/03/24 15:30 86 16 104/62 05/03/24 15:20 82 17 111/61 05/03/24 15:10 85 16 116/55 L 05/03/24 15:00 36.7 C 88 19 120/67 05/03/24 14:50 90 15 116/57 L 05/03/24 14:40 89 17 118/56 L 05/03/24 14:30 90 17 108/60 05/03/24 14:20 89 15 94/53 L 05/03/24 14:10 89 14 108/48 L 05/03/24 14:00 93 H 16 119/54 L 05/03/24 13:51 36.3 C L 95 H 18 107/54 L 05/03/24 09:34 36.7 C 88 20 152/87 H BP Pulse Ox O2 Del Method O2 Flow Rate 05/03/24 16:06 96 Nasal Cannula 2 05/03/24 16:03 05/03/24 15:54 05/03/24 15:54 05/03/24 15:54 05/03/24 15:54 92 05/03/24 15:30 95/45 L 96 Nasal Cannula 2 05/03/24 15:20 95/44 L 95 Nasal Cannula 2 05/03/24 15:10 99/45 L 95 Nasal Cannula 2 05/03/24 15:00 107/46 L 95 Nasal Cannula 2 05/03/24 14:50 114/48 L 96 Nasal Cannula 2 05/03/24 14:40 108/45 L 96 Nasal Cannula 2 05/03/24 14:30 108/46 L 94 Nasal Cannula 2 05/03/24 14:20 106/43 L 94 Nasal Cannula 2 05/03/24 14:10 103/42 L 93 Nasal Cannula 2 05/03/24 14:00 120/45 L 98 Oxymask 5 05/03/24 13:51 130/49 L 98 Oxymask 5 05/03/24 09:34 152/82 H 98 Room Air Lab & Micro Results (Past 24 Hours) RBC 4.55 M/uL (4.20-5.40) 05/03/24 WBC 11.90 K/ul (4.8-10.8) H 05/03/24 Hgb 12.3 g/dl (12.0-16.0) 05/03/24 Hct 38.7 % (37.0-47.0) 05/03/24 MCV 85.1 fL (80.0-100.0) 05/03/24 MCH 27.0 pg (25.0-34.0) 05/03/24 MCHC 31.8 g/dL (32.0-36.0) L 05/03/24 RDW Standard Deviation 43.5 fL (36.4-46.3) 05/03/24 RDW Coefficient of Variation 14.0 % (11.5-14.5) 05/03/24 Plt Count 292 K/uL (130-400) 05/03/24 MPV 12.0 fL (9.4-12.4) 05/03/24 Neutrophils (%) (Auto) 58.4 % 05/03/24 Lymphocytes (%) (Auto) 33.8 % 05/03/24 Monocytes # (Auto) 0.67 K/uL (0.11-0.59) H 05/03/24 Eosinophils # (Auto) 0.19 K/uL (0.00-0.50) 05/03/24 Immature Granulocyte % (Auto) 0.3 % 05/03/24 Neutrophils # (Auto) 6.95 K/uL (1.40-6.50) H 05/03/24 Lymphocytes # (Auto) 4.02 K/uL (1.20-3.40) H 05/03/24 Monocytes # (Auto) 0.67 K/uL (0.11-0.59) H 05/03/24 Eosinophils # (Auto) 0.19 K/uL (0.00-0.50) 05/03/24 Basophils # (Auto) 0.04 K/uL (0.00-0.20) 05/03/24 Immature Granulocyte # (Auto) 0.03 K/uL (0.01-0.20) 5 Na 138 mmol/L (136-145) 05/03/24 K 3.7 mmol/L (3.5-5.1) 05/03/24 Cl 106 mmol/L (98-107) 05/03/24 CO2 27 mmol/L (21-32) 05/03/24 Anion Gap 5 (3-11) 05/03/24 BUN 16 mg/dl (6-23) 05/03/24 Creatinine 0.74 mg/dl (0.6-1.2) 05/03/24 BUN/Creatinine Ratio 21.6 (10-20) H 05/03/24 Glu 116 mg/dl (70-99(Fasting)) H 05/03/24 Ca 9.7 mg/dl (8.6-10.3) 05/03/24 Calcium Level 9.7 mg/dl (8.6-10.3) 05/03/24 09:00 Prothromb Time International Ratio 1.0 (0.9-1.1) 05/03/24 09:0 0 I & O Totals 24 Hours 05/02/24 05/03/24 05/04/24 06:59 06:59 06:59 Intake Total 950 / 950 Output Total Balance 930 / 930 Cumulative 02/03/24 15:50 thru 05/03/24 15:00 Intake Total 950 Output Total 20 Balance 930 RT Ventilator Mngmt (Last Documented) Ventilator Ordered Settings Respiratory Rate 13 05/03/24 16:06 Ventilator - PT Measurements Respiratory Rate 13 Coding Level of Care Code 55548 INT INP/OBS CARE 2/55MIN Diagnoses Stenosis of right carotid artery I65.21 Type 2 diabetes mellitus with insulin therapy E11.9; Z79.4 Essential hypertension I10 Hypertension type: essential hypertension (3) Hypertension Hypertension type: essential hypertension Qualified Code(s): I10 - Essential (primary) hypertension
[2024-05-03] MEDS: INSULIN ASPART PER UNIT CHARGE SC SCH (17:55)
[2024-05-03] MEDS: oxyCODONE/ACETAMINOPHEN 5mg/325mg TAB PO PRN (17:58)
[2024-05-03] MEDS ORDERED: oxyCODONE HCL IR 5 MG TAB (IMMEDIATE RELEASE) PO PRN (19:22)
[2024-05-03] MEDS: TICAGRELOR 90 MG TAB PO SCH (20:41)
[2024-05-03] MEDS: POTASSIUM CHLORIDE 10 MEQ TABCR PO SCH (20:41)
[2024-05-03] MEDS: ROSUVASTATIN CALCIUM 20 MG TAB PO SCH (20:41)
[2024-05-03] MEDS: VENLAFAXINE HCL XR 37.5 MG CAPXR PO SCH (20:41)
[2024-05-03] MEDS: GABAPENTIN 600 MG TAB PO SCH (20:41)
[2024-05-03] MEDS: CHOLECALCIFEROL 25 MCG (1000 UNITS) TAB PO SCH (20:41)
[2024-05-03] MEDS: CITALOPRAM 20 MG TAB PO SCH (20:42)
[2024-05-03] MEDS: FENOFIBRATE NANOCRYSTALLIZED 145 MG TABLET PO SCH (20:42)
[2024-05-03] MEDS: PANTOprazole 40 MG TAB PO SCH (20:42)
[2024-05-03] MEDS: CYANOCOBALAMIN (B-12) 500 MCG TABLET PO SCH (20:42)
[2024-05-03] MEDS: ATENOLOL 25 MG TABLET PO SCH (20:43)
[2024-05-03] MEDS: ACETAMINOPHEN 325 MG TAB PO PRN (20:49)
[2024-05-03] MEDS: LANTUS PER UNIT CHARGE SQ SCH (20:51)
[2024-05-03] MEDS: LOSARTAN/HCTZ 50/12.5MG TAB PO SCH (21:02)
[2024-05-04 04:37] LABS: Basophils # (auto) 0.01 K/uL (0.00-0.20); Basophils % (auto) 0.1 %; Eosinophils # (auto) 0.02 K/uL (0.00-0.50); Eosinophils % (auto) 0.2 %; Hematocrit (blood only) 31.3 % (37.0-47.0); Hemoglobin 9.9 g/dl (12.0-16.0); Immature Granulocytes # (auto) 0.04 K/uL (0.01-0.20); Immature Granulocytes % (auto) 0.4 %; Lymphocytes # (auto) 1.36 K/uL (1.20-3.40); Lymphocytes % (auto) 11.9 %; Mean Corpuscular Hgb Conc 31.6 g/dL (32.0-36.0); Mean Corpuscular Volume 85.5 fL (80.0-100.0); Monocytes # (auto) 0.46 K/uL (0.11-0.59); Neutrophils % (auto) 83.4 %; Platelet Count 251 K/uL (130-400); RDW Coefficient of Variation 14.1 % (11.5-14.5); Red Blood Count 3.66 M/uL (4.20-5.40); White Blood Count 11.39 K/ul (4.8-10.8)
[2024-05-04 04:52] LABS: BUN Creatinine Ratio 24.3 (10-20); Creatinine Clr Calc Pharmacy 89.1 ml/min; Magnesium 1.5 mg/dl (1.7-2.4); Phosphorus 3.1 mg/dl (2.5-4.9); Potassium 4.1 mmol/L (3.5-5.1)
[2024-05-04] MEDS: LEVOTHYROXINE SODIUM 50 MCG TABLET PO SCH (07:01)
[2024-05-04 07:15] LABS: Estimated Average Glucose 137 mg/dl; Hemoglobin A1C 6.4 % (4.5-5.6)
[2024-05-04] MEDS: ASPIRIN 81 MG ECTAB PO SCH (07:38)
[2024-05-04] MEDS: MAGNESIUM OXIDE 400 MG TAB PO SCH (07:41)
[2024-05-04 08:36] VITALS: RESP 19; O2SAT 96
--- NOTE | 2024-05-04 10:01 | Critical Care Progress Note ---
Date of Service May 04, 2024 Assessment & Plan (1) Stenosis of right carotid artery: (2) Type 2 diabetes mellitus with insulin therapy: (3) Hypertension: Plan Impression: 73-year-old female with asymptomatic carotid stenosis status post TCAR on the left. Postop day 1. Doing well clinically. Recommendations: 1. Carotid stenosis status post left TCAR: Management per vascular surgery. Blood pressure goals per vascular surgery. 2. Hypotension resolved. Now off Rafael-Synephrine. 3. Diabetes: Continue outpatient medications. Patient's remaining critical care issues have been well addressed by the vascular surgery service. Patient's critical care issues are resolved. Critical care will sign off. Feel free to contact us with questions or concerns Admission and Anticipated Discharge Date Admission Date: May 03, 2024 Subjective Patient seen and examined. EMR reviewed. Discussed with bedside critical care nurse and on multidisciplinary rounds. The patient is awake alert conversant sitting up in a chair. She tolerated diet. She has no neurological complaints. Her pain is well-controlled. She was on Rafael-Synephrine for a brief period of time last evening but her blood pressure is now normalized. She has no new concerns today Review of Systems 2 Review of Systems: All systems reviewed & are unremarkable except as noted in Subjective Physical Exam 2 Constitutional: WD/WN, vitals as above Neck: trachea midline, no thyromegaly Respiratory: normal respiratory effort, lungs clear to auscultation Cardiovascular: RRR, no murmur, no edema Gastrointestinal (Abdomen): normal bowel sounds, soft, nontender, no hepatosplenomegaly Musculoskeletal: Extremities: extremities normal to inspection Skin: no rashes, warm and dry Lymphatic: no cervical lymphadenopathy Results & Data Results & Data Vital Signs (Past 12 Hours) Vital Signs Temp Pulse Resp BP Pulse Ox O2 Del Method 05/04/24 08:24 77 19 96 Room Air 05/04/24 08:12 80 16 95 05/04/24 08:00 82 19 94 05/04/24 07:57 97 H 17 96 05/04/24 07:42 85 20 95 05/04/24 07:30 86 29 H 05/04/24 07:27 85 18 94 05/04/24 07:00 122/64 05/04/24 06:57 59 L 15 94 05/04/24 06:42 68 12 94 05/04/24 06:33 75 13 95 05/04/24 06:21 72 14 94 05/04/24 06:12 79 14 94 05/04/24 06:06 82 12 93 05/04/24 06:00 36.8 C 05/04/24 05:51 87 16 95 05/04/24 05:45 89 16 92 05/04/24 05:33 82 12 92 05/04/24 05:21 82 14 93 Room Air 05/04/24 05:00 115/65 05/04/24 04:45 83 13 92 05/04/24 04:30 81 13 91 05/04/24 04:21 91 H 15 93 05/04/24 03:33 90 15 91 05/04/24 03:00 125/70 05/04/24 03:00 125/70 05/04/24 02:54 65 14 93 05/04/24 02:43 36.8 C 05/04/24 02:33 61 16 93 05/04/24 02:00 136/71 05/04/24 01:39 54 L 12 93 05/04/24 01:00 117/66 05/04/24 01:00 65 15 94 Room Air 05/04/24 00:51 57 L 16 95 05/04/24 00:42 57 L 12 91 05/04/24 00:30 62 15 95 05/04/24 00:21 88 21 94 05/04/24 00:15 74 19 92 05/04/24 00:00 122/55 L 05/04/24 00:00 55 L 15 95 Room Air 05/04/24 00:00 63 05/03/24 23:51 61 14 92 05/03/24 23:30 80 17 94 05/03/24 23:27 56 L 11 L 98 05/03/24 23:09 53 L 11 L 91 05/03/24 22:57 49 L 12 97 05/03/24 22:43 36.8 C 05/03/24 22:21 64 21 05/03/24 22:12 67 19 98 Laboratory Results 05/04/24 04:14 05/04/24 04:14 Diagnostic Findings No new imaging Coding Level of Care Code 42881 SUB INP/OBS CARE 2MIN Diagnoses Stenosis of right carotid artery I65.21 Type 2 diabetes mellitus with insulin therapy E11.9; Z79.4 Essential hypertension I10 Hypertension type: essential hypertension (3) Hypertension Hypertension type: essential hypertension Qualified Code(s): I10 - Essential (primary) hypertension
[2024-05-04] MEDS: GABAPENTIN 300 MG CAP PO SCH (11:52)
--- NOTE | 2024-05-04 13:36 | Discharge Summary ---
Date of Service May 04, 2024 Admission HPI Per Admitting Provider Ms. 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 Patient states that she developed pain in her low back and in her "sciatica" which then shoots down her legs when she is standing upright to ambulate. If she is at the grocery store and has a cart to lean on, she is able to finish her grocery shopping without any problems. She also admits some severe chronic numbness and tingling in her lower legs and feet which is clearly related to her diabetes control, as it is worse when her blood sugars are out of control and improved when they are controlled. She denies any discoloration of the feet or toes, wounds on the feet or toes, rest pain, or other concerns. She denies any symptoms of cerebrovascular insufficiency including amaurosis, unilateral extremity weakness numbness or tingling, difficulty speaking or swallowing, facial droop, sudden onset confusion. She also denies headache, fever, chest pain, shortness of breath, abdominal pain, nausea, vomiting, other concerns. 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 She was found to have severe bilateral carotid artery stenosis. She underwent a right tcar in the past that was uneventful. She is now admitted for a left tcar. Admission Exam Per Admitting Provider Constitutional: In general patient is an obese but healthy-appearing well- nourished developed elderly female in no distress. She is alert and oriented but in focal deficits. Her head is normocephalic and atraumatic. Her right carotid does demonstrate a bruit, her left does not. Her heart is regular, her lungs are decreased throughout but are clear. Her abdomen is soft and nontender with active bowel sounds in all 4 quadrants. Brachial and radial pulses are +3. Femoral pulses are +3. Right DP pulses +1, PT pulses +2. Left DP and PT pulses are +1. She has brisk capillary refill and no sign of distal ischemia. She has trace to 1+ edema at the ankles. Principal Diagnosis 1. s/p L TCAR 2. L ICA stenosis Discharge Exam Constitutional WD/WN, vitals as above + obese, healthy appearing, cooperative and comfortable; not in distress Neck trachea midline Respiratory normal respiratory effort, lungs clear to auscultation Auscultation: + diminished lung sounds Cardiovascular Rate/Rhythm: regular rate and regular rhythm Vessels: posterior tibial pulses present, dorsalis pedis pulses present and radial pulses present; + abnormal peripheral pulses Extremities: normal capillary refill Gastrointestinal (Abdomen) Inspection/Auscultation: abdomen normal to inspection and normal bowel sounds Percussion/Palpation: abdomen soft; abdomen nontender Musculoskeletal no cyanosis or clubbing, extremities motor strength 5/5 Skin no rashes, warm and dry Neurologic moves all extremities and awake; no focal motor deficits and not confused Psychiatric A+Ox3, euthymic affect Discharge Data Allergies Allergy/AdvReac Type Severity Reaction Status Date / Time metformin Allergy Unknown Nausea Verified 05/03/24 09:19 wheat Allergy Unknown throat Verified 05/03/24 09:19 tightness erythromycin base AdvReac Unknown Nausea Verified 05/03/24 09:19 Consultations 05/03/24 16:05 Consult Operations General Agent Routine Procedures Performed Operation Date: 05/03/24 10:15 Actual Procedures p Left Transcarotid Artery Revascularization, Ultrasound right common femoral vein(Left) - Sanya Castro MD Ordered Studies 05/03/24 07:16 EV angio carotid cerv LT Routine Hospital Course (1) Internal carotid artery stent present: Pt POD #1 after L TCAR, doing well post op. VSS, pt without complaint. Does not want pain medications at home. Discussed with navid Thomas for d/c home today. Total Time Total Time Spent Total Time Spent (In Minutes): 0 Discharge Plan Discharge Items Patient Disposition: Home - Self-Care Reason For Visit: Left Internal Carotid Artery Stenosis, Z01.818 Discharge Diagnosis: 1. s/p L TCAR 2. L ICA Stenosis Activity: Per Instructions section Non-emergency contact: Primary Care Provider and Surgeon Call non-emergency contact if: you have any medication questions, your symptoms worsen, your pain is not controlled, your pain is concerning for you, you have a fever, your wound has increased redness and your wound has increased drainage Follow-up/Referrals: Sanya Castro MD [Physician] - (Follow up with Dr Castro or Vero Licea PA-C, in 2 weeks.) Mahad Davis MD [Primary Care Provider] - (Follow up with your PCP within 2 weeks) Diet: Regular, Carb Consistent or DM2 and Heart Healthy Addtl Attending Provider Instructions: SPECIAL CARE INSTRUCTIONS: Diet: * You may return to previous diet. Medications: * Continue to take Aspirin, brilinta, and rosuvastatin as directed. DO NOT STOP THESE MEDICATIONS WITHOUT SPEAKING TO DR CASTRO'S OFFICE. Incision Care: * You may shower, but do not rub incision. You may let the warm soapy water run over it. Be sure to dry the incision well after bathing. * Do not shave directly over the incision until it is healed. * DO NOT IMMERSE THE INCISION IN A TUB/POOL/etc. UNTIL HEALED. Restrictions: * Do not drive if you are still taking any narcotic pain medication. * Do not lift anything heavier than a gallon of milk for one week after going home. Possible Complications: * Numbness - It is normal to have some numbness around the incision. Numbness can extend beyond the incision to areas of the neck, ear and face. The numbness is due to bruising of nerves during the surgery and will gradually improve over a period of months. * Hoarseness/Difficulty Speaking and Swallowing - The bruising of nerves in the neck can also cause a hoarse voice, difficulty speaking or swallowing. This may improve over time, HOWEVER, if it continues for more than a few days please contact our office ([phone]). * Excessive Swelling - There will be some swelling immediately after surgery which usually resolves within one week. If you notice that the swelling is getting worse, notify your surgeon ([phone]). * Drainage/Bleeding - If there is any drainage or bleeding, it should be a very small amount (less than a teaspoon per day). If you have excessive bleeding or drainage from the incision, call your surgeon ([phone]) right away. ACTIVATION OF EMERGENCY MEDICAL SYSTEM: Call 911, immediately, if you experience any of the following: Warning Signs and Symptoms of Stroke: * Sudden numbness or weakness of the face, arm or leg, especially on one side of the body * Sudden confusion, trouble speaking or understanding * Sudden trouble seeing in one or both eyes * Sudden trouble walking, dizziness, loss of balance or coordination * Sudden severe headache with no cause Do not delay calling 911 if you experience any warning signs or symptoms of a stroke. Delay in seeking medical attention may affect what treatments can be given to you. Risk Factors for Stroke: You can reduce your chances of stroke by working with your medical provider to adopt a healthy lifestyle. Some specific ways to lower your chance of stroke are: * If you are a smoker, now is the time to stop smoking cigarettes * If you are diabetic, improve the control of your blood sugars * Avoid excessive amounts of alcohol * Control high blood pressure * Lose weight if you are overweight * Be sure to lead an active lifestyle * Eat a healthy diet low in salt, cholesterol and fat You should know about other risk factors for stroke that you are unable to control. These include: * Age 55 years or older * Male gender * Certain racial groups: , or / * Family History of Stroke, Mini stroke or Heart Attack * Sickle Cell Disease You will be receiving a call from the Vascular Surgery Nurse after you are discharged. FOLLOW UP VISIT: It is important for you to keep your follow up appointments with your medical provider. Keep any scheduled doctor appointments. Pending Studies at Discharge: No Stand-Alone Forms: My [facility], Smoking Cessation Medications and DC Order Prescriptions: Continued (DME) pen needle, diabetic [BD Ultra-Fine Rebeca Pen Needle] 32 gauge x 5/32" needle See Rx Instructions .ROUTE .MEDSUPPLY Qty: 500 3RF Rx Instructions: use 4 needles daily with insulin and 1 needle weekly with Ozempic (DME) OneTouch Ultra Test Strip See Rx Instructions .Route Qty: 100 5RF Rx Instructions: Test bloood sugar 3 x daily and PRN rosuvastatin [Crestor] 40 mg tablet 40 mg PO HS Qty: 90 1RF aspirin 81 mg tablet 81 mg PO QAM citalopram [Celexa] 20 mg tablet 20 mg PO HS (DME) lancets 25 gauge misc See Dose Instructions .ROUTE .MEDSUPPLY Qty: 100 Rx Instructions: test 4 times daily cholecalciferol (vitamin D3) 2,000 unit capsule 2,000 units PO HS Qty: 1 potassium chloride 10 mEq capsule, extended release 10 meq PO HS atenolol 25 mg tablet 12.5 mg PO BID gabapentin 300 mg capsule 300 - 600 mg PO TID Rx Instructions: 600mg in am, 300mg at lunch, and 600mg in pm (DME) Dexcom G7 Sensor Device See Rx Instructions .Route Rx Instructions: As directed fenofibrate nanocrystallized 145 mg tablet 145 mg PO HS nitroglycerin 0.4 mg tablet, sublingual 0.4 mg sublingual UD PRN (Reason: Chest Pain) levothyroxine 50 mcg tablet 50 mcg PO QAM 90 Days Qty: 90 1RF venlafaxine [Effexor XR] 37.5 mg capsule,extended release 24hr 37.5 mg PO HS magnesium oxide 400 mg magnesium tablet 800 mg PO Q2D insulin aspart U-100 [Novolog FlexPen U-100 Insulin] 100 unit/mL (3 mL) insulin pen 20 unit SQ DAILY Rx Instructions: per sliding scale with meals up to TDD 20 units semaglutide 1 mg/dose (4 mg/3 mL) pen injector 1 mg subcut Q7D 90 Days Qty: 9 1RF Patient Comments: saturdays cyanocobalamin (vitamin B-12) [Vitamin B-12] 1,000 mcg Tablet 1,000 mcg PO HS pantoprazole 40 mg Tablet,Delayed Release (Dr/Ec) 40 mg PO HS losartan-hydrochlorothiazide 50-12.5 mg tablet 1 tab PO HS Hold Instructions: Resume on 01/29/24. hold until follow up with Dr. Mosquera insulin glargine [Basaglar KwikPen U-100 Insulin] 100 unit/mL (3 mL) insulin pen 36 unit subcut HS Brilinta 90 mg Tablet 90 mg PO BID oxycodone-acetaminophen [Percocet] 5-325 mg Tablet 1 - 2 tab PO Q4H PRN (Reason: pain) Qty: 12 0RF Discharge Orders: Discharge Order (Routine); Ordered 05/04/24 Ordered By: Vero Mooney/Other Patient Handouts: Managing Type 2 Diabetes Admission Data Admit Date/Time: 05/03/24 10:48 Attending Provider: Sanya Castro Admit Provider: Sanya Castro Primary Care Provider: Mahad Davis Other Providers: Blayne Zacarias; Rian Wilder; Tommie Tristan; Gutierrez Pugh; Shanae Romero; Jared Talavera; Khushbu Ernst; Shantel Acosta
--- NOTE | 2024-05-04 13:36 | Surgery Progress Note ---
Date of Service May 04, 2024 Assessment & Plan (1) Internal carotid artery stent present: Plan: Pt POD #1 after L TCAR, doing well post op. VSS, pt without complaint. Does not want pain medications at home. Discussed with navid Thomas for d/c home today. Admission and Anticipated Discharge Date Admission Date: May 03, 2024 Subjective 73 yo f POD #1 after uncomplicated L TCAR, seen in f/u today. Pt states feeling generally well, just tired. No new complaints or concerns. Review of Systems Review of Systems: All systems reviewed & are unremarkable except as noted in HPI & below Physical Exam Constitutional: WD/WN, vitals as above + obese, healthy appearing, cooperative and comfortable; not in distress Neck: trachea midline L supraclavicular incision C/D/I, moderate soft edema, tenderness. + ecchymosis Respiratory: normal respiratory effort, lungs clear to auscultation Auscultation: + diminished lung sounds Cardiovascular: Rate/Rhythm: regular rate and regular rhythm Vessels: posterior tibial pulses present, dorsalis pedis pulses present and radial pulses present; + abnormal peripheral pulses Extremities: normal capillary refill Gastrointestinal (Abdomen): Inspection/Auscultation: abdomen normal to inspection and normal bowel sounds Percussion/Palpation: abdomen soft; abdomen nontender Musculoskeletal: no cyanosis or clubbing, extremities motor strength 5/5 Skin: no rashes, warm and dry Neurologic: moves all extremities and awake; no focal motor deficits and not confused Psychiatric: A+Ox3, euthymic affect Results & Data Vital Signs (Past 12 Hours) Vital Signs Temp Pulse Resp BP Pulse Ox O2 Del Method 05/04/24 12:47 36.8 C 05/04/24 12:36 74 19 96 05/04/24 12:36 100/53 L 05/04/24 12:36 100/53 L 05/04/24 12:36 100/53 L 05/04/24 12:36 100/53 L 05/04/24 12:06 67 17 95 Room Air 05/04/24 11:03 63 13 94 05/04/24 10:39 66 17 95 05/04/24 10:00 36.8 C 05/04/24 09:06 69 12 95 05/04/24 08:24 77 19 96 Room Air 05/04/24 08:12 80 16 95 05/04/24 08:00 82 19 94 05/04/24 07:57 97 H 17 96 05/04/24 07:42 85 20 95 05/04/24 07:30 86 29 H 05/04/24 07:27 85 18 94 05/04/24 07:00 122/64 05/04/24 06:57 59 L 15 94 05/04/24 06:42 68 12 94 05/04/24 06:33 75 13 95 05/04/24 06:21 72 14 94 05/04/24 06:12 79 14 94 05/04/24 06:06 82 12 93 05/04/24 06:00 36.8 C 05/04/24 05:51 87 16 95 05/04/24 05:45 89 16 92 05/04/24 05:33 82 12 92 05/04/24 05:21 82 14 93 Room Air 05/04/24 05:00 115/65 05/04/24 04:45 83 13 92 05/04/24 04:30 81 13 91 05/04/24 04:21 91 H 15 93 05/04/24 03:33 90 15 91 05/04/24 03:00 125/70 05/04/24 03:00 125/70 05/04/24 02:54 65 14 93 05/04/24 02:43 36.8 C 05/04/24 02:33 61 16 93 05/04/24 02:00 136/71 05/04/24 01:39 54 L 12 93
[2024-05-04 15:11] VITALS: BP 115/52; PULSE 65
== END 2024-05-04 15:06 | disposition home or self-care (01) | DRG 36 ==
LOC: ASU 08:19 → LAB 08:19 → 1E 10:48
PROC: EV.TCAR (2024-05-03 10:15)

== ENCOUNTER 2024-08-01 10:00 | Inpatient (IN) ==
[2024-08-01] MEDS: SODIUM CHLORIDE 0.9% 500 ML IV STA (10:25)
--- NOTE | 2024-08-01 10:32 | Emergency Department Note ---
Impression & Plan Anemia Admission ED Provider Note HPI: History obtained from patient. The patient is a 74-year-old female with history of carotid artery stenosis status post stent, type 2 diabetes, hypertension, dyslipidemia, presents the emergency department with a chief complaint of 2 syncopal events over the past 4 days. Patient states that on Thursday she had a syncopal event when she was in her kitchen. She states that she had a sensation as if she was going to blackout and called for help and then woke up on the kitchen floor. Patient states that she was seen after this at [facility] emergency room and ultimately discharged home after an unremarkable workup. Patient states that on Thursday she again had another event, patient states she was sitting down on the toilet to urinate when she felt lightheaded and then fell and she believes she hit her left orbit against the bathtub. Patient did not seek medical attention after this event. Patient waited until this morning to call her bridal service sales and management through [facility], upon calling the office she was advised to come to the emergency department to be assessed for her multiple syncopal events. On arrival here to the ED the patient is alert, she appears to be in no acute distress, she is hemodynamically stable on arrival and saturating well on room air. Patient denies any current symptoms, denies any chest pain or shortness of breath. ROS: - Per HPI Differential Diagnosis: Arrhythmia, vasovagal event, high degree heart block, orthostatic hypotension, ACS, dehydration/MARIE, amongst other potential pathologies. *Outpatient medications and allergy history reviewed. PE: General: Alert HEENT: Normocephalic, trachea midline, left orbital contusion Eyes: Extraocular eye movement is intact, no scleral erythema bilaterally Pulmonary: Clear to auscultation bilaterally, no wheezing Cardio: Regular rate and rhythm GI: Abdomen is soft to palpation, rectal examination performed with female RN at the bedside (María Lewis RN) shows external hemorrhoids without active bleeding, occult stool testing is positive : No suprapubic tenderness MSK: No evidence of trauma or malformation of the extremities, no edema Skin: No evidence of rash Neuro: Alert, no focal deficits Psychiatric: Cooperative INDEPENDENT INTERPRETATIONS: athletic monitor: (As interpreted by myself): - An order was placed for continuous cardiac monitoring - Patient was noted to be in sinus rhythm with a rate of 90 EKG: (As interpreted by myself): Rate: 92 Rhythm: Normal sinus rhythm Intervals: Within normal limits ST changes: No ST elevation Time: 1017 Chest x-ray: (As interpreted by myself): No acute disease Interventions provided in ED: - IV fluid bolus, IV Protonix bolus and drip, 2 units packed red blood cells ordered. Medical Decision Making: IV was established and lab work obtained, patient was placed on engine monitor. Lab work shows nonspecific leukocytosis of 13, hemoglobin is reduced at 5.7, platelet count is slightly elevated at 443. CMP does not show any evidence of any critical findings. Troponin is negative x 1. No evidence of any acute kidney injury. Patient was given IV fluids and started on IV Protonix bolus and drip here in the ED as her rectal exam was occult stool positive. I suspect that her symptoms of syncope are secondary to symptomatic anemia from a GI bleed. Patient has not had any bright red blood per rectum, I suspect it is likely an upper GI bleed that is slowly been evolving, she did have some melena on exam. CT imaging of the head as well as CT imaging of the facial bones did not show any evidence of any acute intracranial hemorrhage, no evidence of any facial bone fracture. Patient was typed and screened, she was consented for 2 units packed red blood cells. I discussed the patient's presentation with the on-call hospitalist for [facility], Dr. Ayoub, and the patient was placed for admission in stable condition. Consultants/Discussions held with other healthcare providers: - HospitalistDr. Ayoub Disposition discussion held by myself with: - Patient * CRITICAL CARE TIME: ( 43 ) minutes - Stabilization of symptomatic anemia with hemoglobin less than 7.0 requiring packed red blood cell transfusion to be ordered, time spent at the bedside, interpretation of diagnostic studies, discussion with other healthcare providers and arrangement of admission. Diagnosis: 1. Symptomatic anemia, acute 2. Melena, acute 3. Syncope, acute 4. Left orbital contusion, acute, status post fall Disposition: Admission Daniel Golden DO Emergency Medicine Past Med/Surg History Problem List (Updated 08/01/24 @ 13:58 by Daniel Golden DO) Anemia (Acute) Syncope Symptomatic anemia Internal carotid artery stent present Left carotid stenosis PAC (premature atrial contraction) Previous inferior myocardial infarction older than 8 weeks Hypotension Stenosis of right carotid artery Albuminuria Depression Type 2 diabetes mellitus with insulin therapy Paresthesias Arteriosclerotic cardiovascular disease (Acute) Diabetic peripheral neuropathy (Acute) Dyslipidemia (Acute) Hypertension (Acute) Obesity (Acute) Subclinical hypothyroidism (Acute) Vitamin D deficiency (Acute) Medical History Hx of myocardial infarction PAC (premature atrial contraction) follows w/ Ayesha Mosquera Chronic back pain CAD (coronary artery disease) s/p mid RCA stent 2009 s/p stent to RCA 09/04/23 (also with moderate 50% LAD disease in mid vessel) PAD (peripheral artery disease) - carotid and lower extremity artery disease Carotid artery disease - Per 12/11/23 neck CTA "at least 90% stenosis with near occlusion involving the proximal cervical segments of the internal carotid arteries bilaterally, right greater than left." - S/p Right TCAR 01/06/24 History of paresthesia GERD (gastroesophageal reflux disease) Subclinical hypothyroidism Hypertension Dyslipidemia Diabetic peripheral neuropathy Anxiety Diabetes mellitus type 2, insulin dependent Depression Surgical History History of transcarotid artery revascularization (TCAR) - Right TCAR 01/06/24= Done under [facility] with Grade 2 view with Gomez #2. ETT #7.0 - Per anesthesia progress note= "Patient requiring phenylephrine infusion to maintain appropriate post TCAR blood pressure. She is conversant and c/o mild neck pain. Otherwise she states she is doing well. Appropriate for transfer to ICU." History of bilateral tubal ligation Hx of section Hx laparoscopic cholecystectomy History of esophagogastroduodenoscopy (EGD) Hx of colonoscopy Hx of heart artery stent 05/09/09, "felt a burning feeling in chest/back," [facility], x1 stent 09/04/23, abn stress test, [facility], x1 stent; f/u dr. davidson, [facility] cardio Hx of cardiac cath 05/09/09, "felt a burning feeling in chest/back," [facility], x1 stent 09/04/23, abn stress test, [facility], x1 stent; f/u dr. davidson, [facility] cardio Family History Other Family history non-contributory Social History Smoking Status: Former smoker Tobacco Type: Cigarettes Second Hand Exposure: No; Do You Dip or Chew Tobacco: No; Hx Alcohol Use: No Hx Substance Use: No Preferred Language: Maltese Communication Ability: Effective Ultrasonic Hand Solderer Required: No Beliefs That Will Affect Care: None Current Living Situation: Spouse Feels Safe at Home: Yes Assistive Devices: Cane Allergies Allergies Allergy/AdvReac Type Severity Reaction Status Date / Time metformin Allergy Unknown Nausea Verified 06/21/24 09:50 wheat Allergy Unknown throat Verified 06/21/24 09:50 tightness erythromycin base AdvReac Unknown Nausea Verified 06/21/24 09:50 Home Meds Home Medications Medication Instructions Recorded Confirmed aspirin 81 mg tablet 81 mg PO QAM 12/07/18 08/01/24 cholecalciferol (vitamin D3) 50 2,000 units PO HS #1 cap 12/07/18 08/01/24 mcg (2,000 unit) capsule citalopram 20 mg tablet (Celexa) 20 mg PO UD 12/07/18 08/01/24 lancets 25 gauge #100 ea 12/07/18 06/21/24 atenolol 25 mg tablet 12.5 mg PO UD 08/06/20 08/01/24 gabapentin 300 mg capsule 300 - 600 mg PO TID 07/15/21 08/01/24 potassium chloride 10 mEq 10 meq PO HS 07/15/21 08/01/24 capsule,extended release venlafaxine 37.5 mg 37.5 mg PO HS 07/31/22 08/01/24 capsule,extended release 24 hr (Effexor XR) blood-glucose sensor (Segopotsocom G7 08/27/23 03/22/24 Sensor device) fenofibrate nanocrystallized 145 145 mg PO HS 08/27/23 08/01/24 mg tablet nitroglycerin 0.4 mg sublingual 0.4 mg sublingual UD PRN Chest Pain 08/27/23 08/01/24 tablet cyanocobalamin (vitamin B-12) 1,000 mcg PO HS 12/29/23 08/01/24 1,000 mcg tablet (Vitamin B-12) insulin glargine 100 unit/mL (3 36 unit subcut HS 12/29/23 08/01/24 mL) subcutaneous pen (Basaglar KwikPen U-100 Insulin) losartan 50 mg-hydrochlorothiazide 1 tab PO HS 12/29/23 08/01/24 12.5 mg tablet pantoprazole 40 mg tablet,delayed 40 mg PO HS 12/29/23 08/01/24 release ticagrelor 90 mg tablet (Brilinta) 90 mg PO BID 01/06/24 08/01/24 magnesium oxide 800 mg PO DAILY 06/21/24 08/01/24 metoprolol tartrate 25 mg tablet 12.5 mg PO UD 08/01/24 08/01/24 Previous Rx's Medication Instructions Recorded pen needle, diabetic 32 gauge x #500 ea 07/24/23" (BD Ultra-Fine Rebeca Pen Needle) OneTouch Ultra Test (blood sugar #100 ea 08/18/23 diagnostic) levothyroxine 50 mcg tablet 50 mcg PO QAM 90 days #90 tabs 08/27/23 oxycodone-acetaminophen 5 mg-325 1 - 2 tab PO Q4H PRN pain #12 tabs 01/08/24 mg tablet (Percocet) rosuvastatin 40 mg tablet (Crestor) 40 mg PO HS #90 tabs 03/21/24 semaglutide 1 mg/dose (4 mg/3 mL) 1 mg (0.75 mL) subcut Q7D 90 days 03/22/24 subcutaneous pen injector #9 mL insulin aspart U-100 100 unit/mL 35 unit (0.35 mL) subcut DAILY #15 07/18/24 (3 mL) subcutaneous pen (Novolog mL FlexPen U-100 Insulin aspart) Results & Data (ED) Vital Signs Vital Signs - 24 hr 08/01/24 10:05 08/01/24 10:21 08/01/24 12:15 Temperature 36.1 C L Temperature Source Temporal Artery Scan Pulse Rate 92 H 91 H Pulse Rate [Left Finger] 86 Respiratory Rate 20 17 Respiratory Effort / Characteristics Non-Labored Spontaneous Respiratory Depth Normal Blood Pressure 121/71 Blood Pressure [Right Arm] 138/77 Blood Pressure Mean 87 Blood Pressure Mean [Right Arm] 97 Pulse Oximetry 98 98 Oxygen Delivery Method Room Air Room Air Sepsis Recent Fever Within 48 Hours No Sepsis New/Unexplained Change in Mental Status N/A Sepsis Action Taken by Nursing No Action Required 08/01/24 12:35 08/01/24 12:46 08/01/24 12:50 Temperature 36.8 C 36.8 C 36.8 C Temperature Source Oral Oral Oral Pulse Rate 88 84 82 Pulse Rate [Left Finger] Respiratory Rate 20 18 17 Respiratory Effort / Characteristics Respiratory Depth Blood Pressure 146/75 H 145/66 H 132/74 Blood Pressure [Right Arm] Blood Pressure Mean 98 92 93 Blood Pressure Mean [Right Arm] Pulse Oximetry 98 98 97 Oxygen Delivery Method Sepsis Recent Fever Within 48 Hours Sepsis New/Unexplained Change in Mental Status Sepsis Action Taken by Nursing 08/01/24 13:20 Temperature 36.5 C Temperature Source Oral Pulse Rate 78 Pulse Rate [Left Finger] Respiratory Rate 20 Respiratory Effort / Characteristics Respiratory Depth Blood Pressure 139/66 Blood Pressure [Right Arm] Blood Pressure Mean 90 Blood Pressure Mean [Right Arm] Pulse Oximetry 98 Oxygen Delivery Method Sepsis Recent Fever Within 48 Hours Sepsis New/Unexplained Change in Mental Status Sepsis Action Taken by Nursing Laboratory Data 08/01/24 11:19 08/01/24 10:25 Lab Results 08/01/24 08/01/24 Range/Units 10:25 11:19 WBC 13.04 H 13.85 H (4.8-10.8) K/ul RBC 2.26 L 2.19 L (4.20-5.40) M/uL Hgb 5.7 L* 5.5 L* (12.0-16.0) g/dl Hct 19.5 L* 18.7 L* (37.0-47.0) % MCV 86.3 85.4 (80.0-100.0) fL MCH 25.2 25.1 (25.0-34.0) pg MCHC 29.2 L 29.4 L (32.0-36.0) g/dL RDW Std Deviation 49.0 H 47.5 H (36.4-46.3) fL RDW Coeff of [place] 15.6 H 15.4 H (11.5-14.5) % Plt Count 443 H 401 H (130-400) K/uL MPV 10.7 10.8 (9.4-12.4) fL Immature Gran % (Auto) 0.4 0.4 % Neut % (Auto) 70.3 67.7 % Lymph % (Auto) 21.9 23.8 % [place] % (Auto) 6.3 7.2 % Eos % (Auto) 0.7 0.6 % Baso % (Auto) 0.4 0.3 % Neut # (Auto) 9.17 H 9.37 H (1.40-6.50) K/uL Lymph # (Auto) 2.86 3.30 (1.20-3.40) K/uL [place] # (Auto) 0.82 H 1.00 H (0.11-0.59) K/uL Eos # (Auto) 0.09 0.09 (0.00-0.50) K/uL Baso # (Auto) 0.05 0.04 (0.00-0.20) K/uL Immature Gran # (Auto) 0.05 0.05 (0.01-0.20) K/uL Polychromasia 1+ 2+ PT 10.9 (9.0-12.0) Seconds INR 1.0 (0.9-1.1) Sodium 139 (136-145) mmol/L Potassium 3.7 (3.5-5.1) mmol/L Chloride 106 (98-107) mmol/L Carbon Dioxide 27 (21-32) mmol/L Anion Gap 6 (3-11) BUN 20 (6-23) mg/dl Creatinine 0.72 (0.6-1.2) mg/dl Est Cr Clr Drug Dosing 86.4 ml/min eGFR 88.78 BUN/Creatinine Ratio 27.8 H (10-20) Glucose 136 H (70-99(Fasting)) mg/dl Calcium 9.6 (8.6-10.3) mg/dl Magnesium 1.8 (1.7-2.4) mg/dl Total Bilirubin 0.3 (0.2-1.0) mg/dl AST 14 (13-39) U/L ALT 8 (7-52) U/L Alkaline Phosphatase 54 (34-104) U/L Troponin I High Sens 5.5 (0-14) pg/ml Total Protein 6.8 (6.0-8.3) gm/dl Albumin 3.7 (3.4-5.0) gm/dl Globulin 3.1 (2.5-4.0) gm/dl Albumin/Globulin Ratio 1.2 (0.9-2) Lipase 36 (11-82) U/L TSH 2.930 (0.300-4.500) uIu/ml Blood Type O Positive Antibody Screen NEGATIVE Crossmatch See Detail Administered Medications Pantoprazole Sodium 40 mg/ (Dextrose) 100 mls @ 20 mls/hr IV Q5H KENNEDY Stop: 08/31/24 11:59 Last Admin: 08/01/24 12:14 Dose: 8 mg/hr, 20 mls/hr Documented By: BINDU Discontinued Medications Sodium Chloride (Nss) 500 mls @ 999 mls/hr IV .Q31M STA Stop: 08/01/24 10:36 Last Infusion: 08/01/24 11:52 Dose: Infused Documented By: Admin: 08/01/24 10:25 Dose: 999 mls/hr Documented By: BINDU Pantoprazole Sodium 80 mg/ (Dextrose) 120 mls @ 480 mls/hr IV NOW ONE Stop: 08/01/24 11:53 Last Infusion: 08/01/24 12:29 Dose: Infused Documented By: Admin: 08/01/24 12:14 Dose: 480 mls/hr Documented By: BINDU Imaging Data Radiologist's Impression: Chest X-Ray 08/01/24 10:06 XR chest 1V portable CLINICAL HISTORY: syncope COMPARISON STUDY: 01/06/2024 FINDINGS: Heart size and pulmonary vasculature are normal. No effusion, consolidation, or pneumothorax. IMPRESSION: No acute findings. ACT 112: Negative or not required by law. Electronically signed by: Joseph Clarke M.D. 08/01/2024 11:[address] 08/01/24 10:29 CT facial bones wo con CLINICAL HISTORY: 74 years-old Female presenting with L orbital contusion s/p fall. Acute facial trauma status post fall COMPARISON STUDY: Head CT of same day TECHNIQUE: High-resolution CT scan of the facial bones is performed. Images are reviewed in the axial, sagittal, and coronal planes. IV contrast was not administered for this examination. A dose lowering technique was utilized adhering to the principles of ALARA. CT DOSE: 955.71 mGy.cm FINDINGS: Head CT dictated separately. Left frontal scalp, periorbital and left lateral cheek contusions are noted. Atherosclerosis of the carotid arteries with bilateral carotid stents. No acute calvarial fracture identified. Mild mucosal thickening of the ethmoid air cells and maxillary sinuses. The mastoid air cells are clear. Degenerative changes of the cervical spine. Numerous dental caries and missing teeth are noted. No acute facial bone fracture identified. IMPRESSION: Left facial and scalp contusions without acute facial bone fracture identified. ACT 112: Negative or not required by law. The above report was generated using voice recognition software. It may contain grammatical, syntax or spelling errors. Electronically signed by: Epi Sumner M.D. 08/01/2024 11:[address] 08/01/24 10:29 CT head/brain wo con CLINICAL HISTORY: syncope. TECHNIQUE: Multiple axial CT images of the head were obtained without contrast. A dose lowering technique was utilized adhering to the principles of ALARA. CT DOSE: 955 COMPARISON: None FINDINGS: No intracranial hemorrhage seen. No mass effect, midline shift, or hydrocephalus. There is a small left periorbital scalp hematoma. There is a small soft tissue density at the left parietal scalp near the vertex, possible small hematoma. No skull fracture seen. 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 Visualized paranasal sinuses and mastoid air cells are clear. IMPRESSION: No acute intracranial findings. ACT 112: Negative or not required by law. The above report was generated using voice recognition software. It may contain grammatical, syntax or spelling errors. Electronically signed by: Joseph Clarke M.D. 08/01/2024 11:05 AM Discharge Plan Visit Data Chief Complaint: Syncope Stated Complaint: PASSING OUT ED Provider: Daniel Golden Discharge Problem: Anemia Patient Disposition: Admitted As Inpatient Condition: Fair Forms Stand Alone Forms: [facility] Prescriptions Prescriptions: No Action (DME) pen needle, diabetic [BD Ultra-Fine Rebeca Pen Needle] 32 gauge x 5/32" needle See Rx Instructions .ROUTE .MEDSUPPLY Qty: 500 3RF Rx Instructions: use 4 needles daily with insulin and 1 needle weekly with Ozempic (DME) OneTouch Ultra Test Strip See Rx Instructions .Route Qty: 100 5RF Rx Instructions: Test bloood sugar 3 x daily and PRN rosuvastatin [Crestor] 40 mg tablet 40 mg PO HS Qty: 90 1RF insulin aspart U-100 [Novolog FlexPen U-100 Insulin] 100 unit/mL (3 mL) insulin pen 35 unit SQ DAILY Qty: 15 1RF Rx Instructions: per sliding scale with meals up to TDD 35 units aspirin 81 mg tablet 81 mg PO QAM citalopram [Celexa] 20 mg tablet 20 mg PO UD Rx Instructions: 20mg po hs. No fill history available unable to verify (DME) lancets 25 gauge misc See Dose Instructions .ROUTE .MEDSUPPLY Qty: 100 Rx Instructions: test 4 times daily cholecalciferol (vitamin D3) 2,000 unit capsule 2,000 units PO HS Qty: 1 potassium chloride 10 mEq capsule, extended release 10 meq PO HS atenolol 25 mg tablet 12.5 mg PO UD Rx Instructions: 12.5mg po bid. No fill history available unable to verify gabapentin 300 mg capsule 300 - 600 mg PO TID Rx Instructions: 600mg in am, 300mg at lunch, and 600mg in pm (DME) Dexcom G7 Sensor Device See Rx Instructions .Route Rx Instructions: As directed fenofibrate nanocrystallized 145 mg tablet 145 mg PO HS nitroglycerin 0.4 mg tablet, sublingual 0.4 mg sublingual UD PRN (Reason: Chest Pain) levothyroxine 50 mcg tablet 50 mcg PO QAM 90 Days Qty: 90 1RF venlafaxine [Effexor XR] 37.5 mg capsule,extended release 24hr 37.5 mg PO HS magnesium oxide 400 mg magnesium tablet 800 mg PO DAILY semaglutide 1 mg/dose (4 mg/3 mL) pen injector 1 mg subcut Q7D 90 Days Qty: 9 1RF Patient Comments: saturdays Rx Instructions: last filled 04/20 28 day supply metoprolol tartrate 25 mg tablet 12.5 mg PO UD Rx Instructions: filled 07/17 90 day supply as 12.5mg po BID. cyanocobalamin (vitamin B-12) [Vitamin B-12] 1,000 mcg Tablet 1,000 mcg PO HS pantoprazole 40 mg Tablet,Delayed Release (Dr/Ec) 40 mg PO HS losartan-hydrochlorothiazide 50-12.5 mg tablet 1 tab PO HS Hold Instructions: Resume on 01/29/24. hold until follow up with Dr. Mosquera insulin glargine [Taniaaglcarol Souza U-100 Insulin] 100 unit/mL (3 mL) insulin pen 36 unit subcut HS ticagrelor [Brilinta] 90 mg Tablet 90 mg PO BID oxycodone-acetaminophen [Percocet] 5-325 mg Tablet 1 - 2 tab PO Q4H PRN (Reason: pain) Qty: 12 0RF Rx Instructions: last filled 01/07 1 day supply Referrals Referrals: Mahad Davis MD [Primary Care Provider] - Discharge Problem: Anemia Qualifiers: Anemia type: unspecified type Qualified Code(s): D64.9 - Anemia, unspecified
[2024-08-01 10:51] LABS: Hematocrit (blood only) 19.5 % (37.0-47.0); Hemoglobin 5.7 g/dl (12.0-16.0); Mean Corpuscular Hemoglobin 25.2 pg (25.0-34.0); Mean Corpuscular Hgb Conc 29.2 g/dL (32.0-36.0); Mean Corpuscular Volume 86.3 fL (80.0-100.0); Mean Platelet Volume 10.7 fL (9.4-12.4); Platelet Count 443 K/uL (130-400); RDW Coefficient of Variation 15.6 % (11.5-14.5); Red Blood Count 2.26 M/uL (4.20-5.40); White Blood Count 13.04 K/ul (4.8-10.8)
[2024-08-01 11:02] LABS: Albumin Globulin Ratio 1.2 (0.9-2); Albumin Level 3.7 gm/dl (3.4-5.0); BUN Creatinine Ratio 27.8 (10-20); Bilirubin,Total 0.3 mg/dl (0.2-1.0); Calcium 9.6 mg/dl (8.6-10.3); Creatinine Clr Calc Pharmacy 86.4 ml/min; Globulin 3.1 gm/dl (2.5-4.0); Magnesium 1.8 mg/dl (1.7-2.4); Potassium 3.7 mmol/L (3.5-5.1); Total Protein 6.8 gm/dl (6.0-8.3)
[2024-08-01] MEDS ORDERED: SODIUM CHLORIDE 0.9% 100 ML IV PRN ×2 (11:03→15:09)
[2024-08-01 11:07] LABS: Basophils # (auto) 0.05 K/uL (0.00-0.20); Basophils % (auto) 0.4 %; Eosinophils # (auto) 0.09 K/uL (0.00-0.50); Eosinophils % (auto) 0.7 %; Immature Granulocytes # (auto) 0.05 K/uL (0.01-0.20); Immature Granulocytes % (auto) 0.4 %; Lymphocytes # (auto) 2.86 K/uL (1.20-3.40); Lymphocytes % (auto) 21.9 %; Monocytes # (auto) 0.82 K/uL (0.11-0.59); Monocytes % (auto) 6.3 %; Neutrophils # (auto) 9.17 K/uL (1.40-6.50); Neutrophils % (auto) 70.3 %; Polychromasia 1+; Troponin I High Sensitivity 5.5 pg/ml (0-14)
--- NOTE | 2024-08-01 11:07 | CT Scan Report ---
CT head/brain wo con CLINICAL HISTORY: syncope. TECHNIQUE: Multiple axial CT images of the head were obtained without contrast. A dose lowering tech nique was utilized adhering to the principles of ALARA. CT DOSE: 955 COMPARISON: None FINDINGS: No intracranial hemorrhage seen. No mass effect, midline shift, or hydrocephalus. There is a small left periorbital scalp hematoma. There is a small soft tissue density at the left parietal sc alp near the vertex, possible small hematoma. No skull fracture seen. There is a small left frontal s kull osteoma. Visualized paranasal sinuses and mastoid air cells are clear. IMPRESSION: No acute intracranial findings. ACT 112: Negative or not required by law. The above report was generated using voice recognition software. It may contain grammatical, syntax o r spelling errors. Electronically signed by: Joseph Clarke M.D. 08/01/2024 11:05 AM
--- NOTE | 2024-08-01 11:09 | XRay Report ---
XR chest 1V portable CLINICAL HISTORY: syncope COMPARISON STUDY: 01/06/2024 FINDINGS: Heart size and pulmonary vasculature are normal. No effusion, consolidation, or pneumothora x. IMPRESSION: No acute findings. ACT 112: Negative or not required by law. Electronically signed by: Joseph Clarke M.D. 08/01/2024 11:08 AM
[2024-08-01 11:16] LABS: Thyroid Stimulating Hormone 2.93 uIu/ml (0.300-4.500)
--- NOTE | 2024-08-01 11:26 | CT Scan Report ---
CT facial bones wo con CLINICAL HISTORY: 74 years-old Female presenting with L orbital contusion s/p fall. Acute facial trau ma status post fall COMPARISON STUDY: Head CT of same day TECHNIQUE: High-resolution CT scan of the facial bones is performed. Images are reviewed in the axia l, sagittal, and coronal planes. IV contrast was not administered for this examination. A dose lower ing technique was utilized adhering to the principles of ALARA. CT DOSE: 955.71 mGy.cm FINDINGS: Head CT dictated separately. Left frontal scalp, periorbital and left lateral cheek contusions are no aggie. Atherosclerosis of the carotid arteries with bilateral carotid stents. No acute calvarial fractu re identified. Mild mucosal thickening of the ethmoid air cells and maxillary sinuses. The mastoid ai r cells are clear. Degenerative changes of the cervical spine. Numerous dental caries and missing anil th are noted. No acute facial bone fracture identified. IMPRESSION: Left facial and scalp contusions without acute facial bone fracture identified. ACT 112: Negative or not required by law. The above report was generated using voice recognition software. It may contain grammatical, syntax o r spelling errors. Electronically signed by: Epi Sumner M.D. 08/01/2024 11:24 AM
[2024-08-01 11:39] LABS: Hematocrit (blood only) 18.7 % (37.0-47.0); Hemoglobin 5.5 g/dl (12.0-16.0); Mean Corpuscular Hemoglobin 25.1 pg (25.0-34.0); Mean Corpuscular Hgb Conc 29.4 g/dL (32.0-36.0); Mean Corpuscular Volume 85.4 fL (80.0-100.0); Mean Platelet Volume 10.8 fL (9.4-12.4); Platelet Count 401 K/uL (130-400); RDW Coefficient of Variation 15.4 % (11.5-14.5); RDW Standard Deviation 47.5 fL (36.4-46.3); Red Blood Count 2.19 M/uL (4.20-5.40); White Blood Count 13.85 K/ul (4.8-10.8)
[2024-08-01 11:46] LABS: Prothrombin Time 10.9 Seconds (9.0-12.0)
[2024-08-01 11:52] LABS: Basophils # (auto) 0.04 K/uL (0.00-0.20); Basophils % (auto) 0.3 %; Eosinophils # (auto) 0.09 K/uL (0.00-0.50); Eosinophils % (auto) 0.6 %; Immature Granulocytes # (auto) 0.05 K/uL (0.01-0.20); Immature Granulocytes % (auto) 0.4 %; Lymphocytes % (auto) 23.8 %; Monocytes % (auto) 7.2 %; Neutrophils # (auto) 9.37 K/uL (1.40-6.50); Neutrophils % (auto) 67.7 %; Polychromasia 2+
--- NOTE | 2024-08-01 12:12 | History & Physical Report ---
Date of Service August 01, 2024 Assessment & Plan (1) Symptomatic anemia: (2) CAD (coronary artery disease): (3) Syncope: (4) Carotid artery disease: Plan This patient is a 74-year-old female with a history of CHARISSA s/p bilateral TCAR on DAPT, CAD s/p STEMI RCA 08/2023, PAD, HLD, hypotension, hypothyroidism, GERD, DM2, depression/anxiety who presents to episodes of syncope and severe symptomatic anemia with a Hgb of 5.5. She was noted to have melena which was heme positive on rectal exam by the ER physician. She denies any abdominal pain, nausea/vomiting. She does note she has had darker stools lately. #Symptomatic severe anemia/syncope-Hgb 5.5 on admission, with melena for the last week or so. Is on dual antiplatelet therapy with aspirin and Brilinta for the last 6 months for her bilateral CHARISSA s/p TCAR. Does admit to some epigastric discomfort with eating the last couple of months. Does have a history of PUD and is taking Protonix once daily at home. - Admit to medical floor with telemetry - Transfuse 2 units PRBCs and check CBC in between units and again in the morning, goal Hgb 7.0 or higher - Consult GI to see about EGD on the morning of 08/02, keep n.p.o. for now - Add maintenance IV fluids after blood transfusion if remains n.p.o. depending on GI decision - Continue Protonix drip - Hold aspirin and Brilinta-discussed with her vascular surgeon who recommends holding both for now and then discontinuing aspirin in the future #CAD s/p STEMI RCA 08/2023/PAD/HLD/CHARISSA s/p bilateral TCAR-no acute issues although there are some T wave inversions in the inferior leads on ECG. No current chest pain and troponin negative. - Holding home aspirin and Brilinta for GI bleed - Continue statin, atenolol - Hold home fenofibrate, losartan/HCT #Hypothyroidism-TSH her normal -continue home LT4 #DM2 with neuropathy-no acute issues - Sliding scale NovoLog, Accu-Cheks - Continue home gabapentin #Depression/anxiety-no acute issues - Continue home Celexa DVT prophylaxis-SCDs only given GI bleed Disposition-admit to medical floor with telemetry History of Present Illness Chief Complaint: Passing out Primary Care Provider: Mahad Davis MD This patient is a 74-year-old female with a history of CHARISSA s/p bilateral TCAR on DAPT, CAD s/p STEMI RCA 08/2023, PAD, HLD, hypotension, hypothyroidism, GERD, DM2, depression/anxiety who presents to the ER after having 2 separate episodes of passing out on 07/29 and 07/30. The first episode occurred in her kitchen and she had a sensation she was going to pass out and called out for help and then woke up on the kitchen floor. She went to [facility] and was discharged home and told her workup was unremarkable-review on her phone shows that she only had a CT of the head and neck but no blood work done there. The next day, she passed out again after sitting down on the toilet to urinate and felt lightheaded prior to this. She did hit the left side of her face off the bathtub when she passed out. She called her cardiology office today and they advised her to come to the ER. In the ER, she was noted to have an Hgb of 5.5 but was hemodynamically stable. She was noted to have melena which was heme positive on rectal exam by the ER physician. She denies any abdominal pain, nausea/vomiting. She does note she has had darker stools lately. Denies chest pains or shortness of breath. She will be admitted for severe symptomatic anemia with syncope. Allergies Allergy/AdvReac Type Severity Reaction Status Date / Time metformin Allergy Unknown Nausea Verified 06/21/24 09:50 wheat Allergy Unknown throat Verified 06/21/24 09:50 tightness erythromycin base AdvReac Unknown Nausea Verified 06/21/24 09:50 Home Medications Medication Instructions Recorded Confirmed Type aspirin 81 mg tablet 81 mg PO QAM 12/07/18 08/01/24 History cholecalciferol (vitamin D3) 50 2,000 units PO HS #1 cap 12/07/18 08/01/24 History mcg (2,000 unit) capsule citalopram 20 mg tablet (Celexa) 20 mg PO UD 12/07/18 08/01/24 History lancets 25 gauge #100 ea 12/07/18 06/21/24 History atenolol 25 mg tablet 12.5 mg PO UD 08/06/20 08/01/24 History gabapentin 300 mg capsule 300 - 600 mg PO TID 07/15/21 08/01/24 History potassium chloride 10 mEq 10 meq PO HS 07/15/21 08/01/24 History capsule,extended release venlafaxine 37.5 mg 37.5 mg PO HS 07/31/22 08/01/24 History capsule,extended release 24 hr (Effexor XR) pen needle, diabetic 32 gauge x #500 ea 07/24/23 06/21/24 Rx 5/32" (BD Ultra-Fine Rebeca Pen Needle) OneTouch Ultra Test (blood sugar #100 ea 08/18/23 06/21/24 Rx diagnostic) blood-glucose sensor ([employer] G7 08/27/23 03/22/24 History Sensor device) fenofibrate nanocrystallized 145 145 mg PO HS 08/27/23 08/01/24 History mg tablet levothyroxine 50 mcg tablet 50 mcg PO QAM 90 days #90 tabs 08/27/23 08/01/24 Rx nitroglycerin 0.4 mg sublingual 0.4 mg sublingual UD PRN Chest Pain 08/27/23 08/01/24 History tablet cyanocobalamin (vitamin B-12) 1,000 mcg PO HS 12/29/23 08/01/24 History 1,000 mcg tablet (Vitamin B-12) insulin glargine 100 unit/mL (3 36 unit subcut HS 12/29/23 08/01/24 History mL) subcutaneous pen (Basaglar KwikPen U-100 Insulin) losartan 50 mg-hydrochlorothiazide 1 tab PO HS 12/29/23 08/01/24 History 12.5 mg tablet pantoprazole 40 mg tablet,delayed 40 mg PO HS 12/29/23 08/01/24 History release ticagrelor 90 mg tablet (Brilinta) 90 mg PO BID 01/06/24 08/01/24 History oxycodone-acetaminophen 5 mg-325 1 - 2 tab PO Q4H PRN pain #12 tabs 01/08/24 08/01/24 Rx mg tablet (Percocet) rosuvastatin 40 mg tablet (Crestor) 40 mg PO HS #90 tabs 03/21/24 08/01/24 Rx semaglutide 1 mg/dose (4 mg/3 mL) 1 mg (0.75 mL) subcut Q7D 90 days 03/22/24 08/01/24 Rx subcutaneous pen injector #9 mL magnesium oxide 800 mg PO DAILY 06/21/24 08/01/24 History insulin aspart U-100 100 unit/mL 35 unit (0.35 mL) subcut DAILY #15 07/18/24 08/01/24 Rx (3 mL) subcutaneous pen (Novolog mL FlexPen U-100 Insulin aspart) metoprolol tartrate 25 mg tablet 12.5 mg PO UD 08/01/24 08/01/24 History Past Med/Surg History Problem List Syncope Symptomatic anemia Internal carotid artery stent present Left carotid stenosis PAC (premature atrial contraction) Previous inferior myocardial infarction older than 8 weeks Hypotension Stenosis of right carotid artery Albuminuria Depression Type 2 diabetes mellitus with insulin therapy Paresthesias Arteriosclerotic cardiovascular disease (Acute) Diabetic peripheral neuropathy (Acute) Dyslipidemia (Acute) Hypertension (Acute) Obesity (Acute) Subclinical hypothyroidism (Acute) Vitamin D deficiency (Acute) Medical History Hx of myocardial infarction PAC (premature atrial contraction) follows w/ A[facility]qu[facility] Chronic back pain CAD (coronary artery disease) s/p mid RCA stent 2009 s/p stent to RCA 09/04/23 (also with moderate 50% LAD disease in mid vessel) PAD (peripheral artery disease) - carotid and lower extremity artery disease Carotid artery disease - Per 12/11/23 neck CTA "at least 90% stenosis with near occlusion involving the proximal cervical segments of the internal carotid arteries bilaterally, right greater than left." - S/p Right TCAR 01/06/24 History of paresthesia GERD (gastroesophageal reflux disease) Subclinical hypothyroidism Hypertension Dyslipidemia Diabetic peripheral neuropathy Anxiety Diabetes mellitus type 2, insulin dependent Depression Surgical History History of transcarotid artery revascularization (TCAR) - Right TCAR 01/06/24= Done under [facility] with Grade 2 view with Gomez #2. ETT #7.0 - Per anesthesia progress note= "Patient requiring phenylephrine infusion to maintain appropriate post TCAR blood pressure. She is conversant and c/o mild neck pain. Otherwise she states she is doing well. Appropriate for transfer to ICU." History of bilateral tubal ligation Hx of section Hx laparoscopic cholecystectomy History of esophagogastroduodenoscopy (EGD) Hx of colonoscopy Hx of heart artery stent 05/09/09, "felt a burning feeling in chest/back," [facility], x1 stent 09/04/23, abn stress test, [facility], x1 stent; f/u dr. davidson, [facility] cardio Hx of cardiac cath 05/09/09, "felt a burning feeling in chest/back," [facility], x1 stent 09/04/23, abn stress test, [facility], x1 stent; f/u dr. davidson, [facility] cardio Family History Other Family history non-contributory Social History Smoking Status: Former smoker Tobacco Type: Cigarettes Second Hand Exposure: No; Do You Dip or Chew Tobacco: No; Hx Alcohol Use: No Hx Substance Use: No Preferred Language: Hebrew Communication Ability: Effective Microbiology Coordinator Required: No Beliefs That Will Affect Care: None Current Living Situation: Spouse Feels Safe at Home: Yes Assistive Devices: Cane Review of Systems Review of Systems: All systems reviewed & are unremarkable except as noted in HPI & below Physical Exam Constitutional: WD/WN, vitals as above Eyes: normal visual davey by confrontation, + anicteric sclerae and PERRL Left periorbital edema and ecchymosis Neck: trachea midline, no thyromegaly Respiratory: normal respiratory effort, lungs clear to auscultation Cardiovascular: RRR, no murmur, no edema Chest (Breasts): Chest: normal inspection of chest Gastrointestinal (Abdomen): normal bowel sounds, soft, nontender, no hepatosplenomegaly Musculoskeletal: Extremities: extremities normal to inspection; no cyanosis and no clubbing Skin: no rashes, warm and dry Neurologic: moves all extremities and awake; no focal motor deficits Psychiatric: A+Ox3, euthymic affect Lymphatic: no lymphedema Results & Data Results & Data Vital Signs (Past 12 Hours) Vital Signs Temp Pulse Resp BP Pulse Ox O2 Del Method 08/01/24 10:21 91 H 08/01/24 10:05 36.1 C L 92 H 20 121/71 98 Room Air Laboratory Results CBC, BMP, magnesium, LFTs, troponin, lipase, TSH reviewed Diagnostic Findings CT of the face and head reviewed: Chest X-Ray 08/01/24 10:06 XR chest 1V portable CLINICAL HISTORY: syncope COMPARISON STUDY: 01/06/2024 FINDINGS: Heart size and pulmonary vasculature are normal. No effusion, consolidation, or pneumothorax. IMPRESSION: No acute findings. ACT 112: Negative or not required by law. Electronically signed by: Joseph Clarke M.D. 08/01/2024 11:[address] 08/01/24 10:29 CT facial bones wo con CLINICAL HISTORY: 74 years-old Female presenting with L orbital contusion s/p fall. Acute facial trauma status post fall COMPARISON STUDY: Head CT of same day TECHNIQUE: High-resolution CT scan of the facial bones is performed. Images are reviewed in the axial, sagittal, and coronal planes. IV contrast was not administered for this examination. A dose lowering technique was utilized adhering to the principles of ALARA. CT DOSE: 955.71 mGy.cm FINDINGS: Head CT dictated separately. Left frontal scalp, periorbital and left lateral cheek contusions are noted. Atherosclerosis of the carotid arteries with bilateral carotid stents. No acute calvarial fracture identified. Mild mucosal thickening of the ethmoid air cells and maxillary sinuses. The mastoid air cells are clear. Degenerative changes of the cervical spine. Numerous dental caries and missing teeth are noted. No acute facial bone fracture identified. IMPRESSION: Left facial and scalp contusions without acute facial bone fracture identified. ACT 112: Negative or not required by law. The above report was generated using voice recognition software. It may contain grammatical, syntax or spelling errors. Electronically signed by: Epi Sumner M.D. 08/01/2024 11:[address] 08/01/24 10:29 CT head/brain wo con CLINICAL HISTORY: syncope. TECHNIQUE: Multiple axial CT images of the head were obtained without contrast. A dose lowering technique was utilized adhering to the principles of ALARA. CT DOSE: 955 COMPARISON: None FINDINGS: No intracranial hemorrhage seen. No mass effect, midline shift, or hydrocephalus. There is a small left periorbital scalp hematoma. There is a small soft tissue density at the left parietal scalp near the vertex, possible small hematoma. No skull fracture seen. 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 Visualized paranasal sinuses and mastoid air cells are clear. IMPRESSION: No acute intracranial findings. ACT 112: Negative or not required by law. The above report was generated using voice recognition software. It may contain grammatical, syntax or spelling errors. Electronically signed by: Joseph Clarke M.D. 08/01/2024 11:05 AM ECG Additional Comments: ECG on 08/01/2024 at 10:17 AM with normal sinus rhythm, rate 92, age undetermined septal infarct, T wave inversion in inferior leads Code Status & VTE Plan Code Status Full code VTE Prophylaxis Plan VTE Prophylaxis will be ordered: Yes PG Care Time/CCT Total # of Minutes Spent Total Time Spent with Patient: Total time spent is greater than 50% in coordination of care (as documented) at patient's floor/unit and/or counseling patient: Coding Level of Care Code 12123 INT INP/OBS CARE 3/75MIN Diagnoses Symptomatic anemia D64.9 CAD (coronary artery disease) I25.10 Syncope R55 Carotid artery disease I77.9
[2024-08-01] MEDS: PANTOprazole 40 MG in DEXTROSE 5% MINI-B 100 ML IV SCH (12:14)
[2024-08-01] MEDS: PANTOprazole 80 MG in DEXTROSE 5% 100 ML IV ONE (12:14)
--- OUTSIDE RECORDS SUMMARY | 2024-08-01 13:41 | External Medical Summary | Continuity of Care Document ---
Author Name Unknown Organization [address] Address [address] [place], [place] [id number] Care Team Providers Care Hospice Bereavement Coordinator Name Role Phone Mahad Davis Primary Care Physician [phone] [facility]counter [id number] Date(s): 07/06/24 - 07/06/[address], [address] [place] [address] [phone] Discharge Disposition: Home or Self Care Attending Physician: SAMARA Licea Lynn Referring Physician: MD Davis Ryan A Encounter Type: Clinic Allergies, Adverse Reactions, Alerts Substance Criticality Severity Reaction Reaction Severity Status erythromycin vomiting Active Glucophage vomiting Active wheat 1 weird throat feeling Active 1can tolerate small amounts. Medications aspirin 81 mg oral delayed release tablet Start: 10/09/23 10:54:00 AM EDT, 1 tab, PO, Daily Start Date: 10/09/23 Status: Ordered Repeat number: 1 atenolol 25 mg oral tablet Start: 10/09/23 10:55:00 AM EDT, 1/2 tab, PO, bid Start Date: 10/09/23 Status: Ordered Repeat number: 1 B-Plex (Vitamin B Complex) oral tablet Start: 05/20/24 11:36:00 AM EST, 1 tab, PO, Daily Start Date: 05/20/24 Status: Ordered Repeat number: 1 Basaglar KwikPen 100 units/mL subcutaneous solution inject 40 units subcutaneously once daily Start Date: 10/09/23 Status: Ordered Repeat number: 1 Brilinta (ticagrelor) 90 mg oral tablet Start: 04/14/24 8:00:00 AM EST, 1 tab, PO, bid, Disp# 180 tab, Refills: 3, Pharmacy: [id number] Start Date: 04/14/24 Status: Ordered Quantity: 180.0 Unit: tab Repeat number: 4 CeleXA 20 mg oral tablet Start: 10/09/23 10:57:00 AM EDT, 1 tab, PO, Daily Start Date: 10/09/23 Status: Ordered Repeat number: 1 fenofibrate 145 mg oral tablet 1 tab, PO, Daily, take 1 tablet by mouth once daily Start Date: 10/09/23 Status: Ordered Repeat number: 1 gabapentin 300 mg oral capsule take 2 capsules by mouth IN THE MORNING 1 AT NOON and 2 at bedtime Start Date: 10/09/23 Status: Ordered Repeat number: 1 HumaLOG KwikPen 100 units/mL injectable solution Start: 10/09/23 10:57:00 AM EDT, See Instructions, sliding scale Start Date: 10/09/23 Status: Ordered Repeat number: 1 Hyzaar 50 mg-12.5 mg oral tablet Start: 10/09/23 10:58:00 AM EDT, 1 tab, PO, Daily Start Date: 10/09/23 Status: Ordered Repeat number: 1 Klor-Con 10 oral tablet, extended release Start: 10/09/23 10:58:00 AM EDT, 1 tab, PO, Daily Start Date: 10/09/23 Status: Ordered Repeat number: 1 levothyroxine 50 mcg (0.05 mg) oral tablet Start: 10/09/23 10:59:00 AM EDT, 1 tab, PO, Daily Start Date: 10/09/23 Status: Ordered Repeat number: 1 magnesium Start: 05/20/24 11:37:00 AM EST, magnesium Start Date: 05/20/24 Status: Ordered Repeat number: 1 nitroglycerin 0.4 mg sublingual tablet Start: 10/09/23 11:01:00 AM EDT, 1 tab, SL, q5min, Disp# 100 tab, PRN: as needed for chest pain Start Date: 10/09/23 Status: Ordered Quantity: 100.0 Unit: tab Repeat number: 1 Ozempic (0.25 mg or 0.5 mg dose) 2 mg/3 mL subQ pen Start: 10/09/23 11:04:00 AM EDT, 0.5 mg, subQ, q7days, Disp# 9 mL, Supply Start Date: 10/09/23 Status: Ordered Quantity: 9.0 Unit: mL Repeat number: 1 Protonix 20 mg oral delayed release tablet Start: 10/09/23 11:01:00 AM EDT, 1 tab, PO, Daily Start Date: 10/09/23 Status: Ordered Repeat number: 1 rosuvastatin 40 mg oral tablet Start: 10/09/23 11:00:00 AM EDT, 1 tab, PO, qhs Start Date: 10/09/23 Status: Ordered Repeat number: 1 Vitamin D3 50 mcg (2000 intl units) oral tablet Start: 10/09/23 11:02:00 AM EDT, 1 tab, PO, Daily Start Date: 10/09/23 Status: Ordered Repeat number: 1 Vitamin D3 50 mcg (2000 intl units) oral tablet Start: 05/20/24 11:36:00 AM EST Start Date: 05/20/24 Status: Ordered Repeat number: 1 Problem List Condition Confirmation Course Effective Dates Status H ealth Status Informant Bilateral carotid artery stenosis Confirmed Active Coronary artery disease Confirmed Active GERD (gastroesophageal reflux disease) Confirmed Active Hyperlipidemia Confirmed Active HTN (hypertension) Confirmed Active Hypothyroid Confirmed Active PAD (peripheral artery disease) Confirmed Active Type 2 diabetes mellitus Confirmed Active Vertigo Confirmed Active Procedures Procedure Date Related Diagnosis Body Site Status Left TCAR 05/03/24 Completed Right TCAR 01/06/24 Completed Results Radiology Reports * Exam Date Time Procedure Performing Provider Status 07/06/24 11:48 AM VL Carotid Duplex Bilateral Final Notes: (VL Carotid Duplex Bilateral) Reason For Exam: isaiah VL Carotid Duplex Bilateral [facility] FINAL REPORT Name: EVER FUNEZ : 1950 Visit: [id number] Date: 06 Jul 2024 TYPE OF TEST: Cerebrovascular Duplex REASON FOR TEST Bilateral TCAR INTERPRETATION/FINDINGS Duplex imaging performed of the bilateral extracranial arteries: 1. Patent right carotid bulb and proximal internal carotid artery stent(s), with no evidence of restenosis. 2. Patent left distal common carotid artery, carotid bulb and proximal internal carotid artery stent(s), with no evidence of restenosis. 3. >50% stenosis of the bilateral external carotid arteries. 4. Antegrade flow in the bilateral vertebral arteries. 5. Normal flow in the bilateral proximal subclavian arteries. Since the previous study performed 04/04/2024, the patient has had a left carotid stent. No change in the right extracranial arteries. IMPRESSION/COMMENTS I have personally reviewed the data relevant to the interpretation of this study. TECHNOLOGIST: Dena Eason RDCS, RVT PHYSICIAN: Sanya Gonzalez M.D. Signed: 07/07/2024 08:46 AM Final Dictated by:MD Gonzalez Eugene J Dictated DT/TM:07/07/2024 8:46 Signed by:MD Gonzalez Eugene J Signed (Electronic Signature):07/07/2024 8:46 a Transcribed by:REINALDO Social History Social History Type Response Smoking Status Former Smoker, quit > 1 yr Sex Female Sex Representation Female (finding) Patient Care team information Care Team Personnel Name: MD Davis Ryan A Position: Referring Member Role: Primary Care Provider Address: [address] Telecom: [phone] Name: SAMARA Licea Lynn Position: Physician Medical Services Manager Exempt - Vasc Surg Member Role: Lifetime Relationship Address: [address] [place] [address] Telecom: [phone] Insurance Providers Guarantor name: NI Health Plan Information #: 1 Payer: [employer] Member Number: [id number] Policy Number: NA Group Number: [id number] Payer Identifier: [id number] Health Plan Information #: 2 Payer: [employer] Member Number: NA Policy Number: NA Group Number: NA Payer Identifier: [id number] Health Plan Information #: 3 Payer: [employer] Member Number: NA Policy Number: NA Group Number: NA Payer Identifier: [id number] Health Plan Information #: 4 Payer: [employer] Member Number: [id number] Policy Number: NA Group Number: NA Payer Identifier: [id number]
[2024-08-01] MEDS ORDERED: GLUCOSE 40% GEL 15 GM TUBE PO PRN (15:09)
[2024-08-01] MEDS ORDERED: GLUCOSE 10 TAB/TUBE PO PRN (15:09)
[2024-08-01] MEDS ORDERED: DEXTROSE 50% 50 ML SYRINGE IV PRN (15:09)
[2024-08-01] MEDS ORDERED: GLUCAGON FOR INJ 1 MG VIAL SQ PRN (15:09)
[2024-08-01] MEDS ORDERED: NITROGLYCERIN SL 0.4 MG/TAB TAB SL PRN (15:09)
[2024-08-01] MEDS ORDERED: ONDANSETRON INJ 2 MG/ML 2 ML VIAL IV PRN (15:09)
[2024-08-01] MEDS ORDERED: ACETAMINOPHEN 325 MG TAB PO PRN (15:09)
[2024-08-01] MEDS ORDERED: CARBOHYDRATES FOR HYPOGLYCEMIA PO PRN (15:09)
--- NOTE | 2024-08-01 15:37 | Gastrointestinal Consultation ---
Date of Consultation August 01, 2024 Assessment & Plan (1) Symptomatic anemia: (2) Melena: Plan Patient is admitted with symptomatic anemia and melena. she does report a history of PUD several decades ago. Also having epigastric discomfort with eating. - follow hgb and hct and transfuse as needed. patient is currently being set up for transfusion. - hold aspirin and brilinta. - continue with protonix drip. - I recommended against the use of nsaids. - will need an EGD when stabilized. Supervising Physician Co-Signing Physician Notes Dark stool for at least 1 to 2 weeks. Patient comes in with a hemoglobin of 5.5 after multiple syncopal episodes. MCV is normal. In addition to the Brilinta she has been taking aspirin. Patient also admits to Advil up till december of last year. She states she was eating and like candy. Does have a history of peptic ulcer disease though takes Protonix 40 mg/day Differential includes recurrent peptic ulcer disease. Bleeding from gastric or duodenal AVMs. Rule out concomitant iron deficiency. Transfuse. Hemoglobin to 7+. EGD tomorrow History of Present Illness Reason for Consultation: severe anemia, melena Requesting Physician: Chary Ayoub MD Attending Physician: Chary Ayoub MD History of Present Illness Patient is a 74 year old female with a history of CHARISSA s/p bilateral TCAR on DAPT, CAD s/p STEMI RCA 08/2023, PAD, HLD, hypotension, hypothyroidism, GERD, DM2, depression/anxiety who presented to ED today with episodes of syncope over the past few days and upon work up was found to have severe anemia with a Hgb of 5.5. She was noted to have melena which was heme positive on rectal exam by the ER physician. She tells me that stools have been dark over the past several weeks. She will move her bowels once every few days, but notices they have been black. She is also having epigastric pain that seems to come on with eating. She reports that 40 years ago she did have an EGD showing peptic ulcer disease. She admits to using nsaids over the past few months, though hasn't been using them as much lately. she does use brilinta and a baby aspirin since she had stents placed last year. The remainder of the GI ROS were unremarkable. Allergies Allergy/AdvReac Type Severity Reaction Status Date / Time metformin Allergy Unknown Nausea Verified 06/21/24 09:50 wheat Allergy Unknown throat Verified 06/21/24 09:50 tightness erythromycin base AdvReac Unknown Nausea Verified 06/21/24 09:50 Home Medications Medication Instructions Recorded Confirmed Type aspirin 81 mg tablet 81 mg PO QAM 12/07/18 08/01/24 History cholecalciferol (vitamin D3) 50 2,000 units PO HS #1 cap 12/07/18 08/01/24 History mcg (2,000 unit) capsule citalopram 20 mg tablet (Celexa) 20 mg PO UD 12/07/18 08/01/24 History lancets 25 gauge #100 ea 12/07/18 06/21/24 History atenolol 25 mg tablet 12.5 mg PO UD 08/06/20 08/01/24 History gabapentin 300 mg capsule 300 - 600 mg PO TID 07/15/21 08/01/24 History potassium chloride 10 mEq 10 meq PO HS 07/15/21 08/01/24 History capsule,extended release venlafaxine 37.5 mg 37.5 mg PO HS 07/31/22 08/01/24 History capsule,extended release 24 hr (Effexor XR) pen needle, diabetic 32 gauge x #500 ea 07/24/23 06/21/24 Rx 5/32" (BD Ultra-Fine Rebeca Pen Needle) OneTouch Ultra Test (blood sugar #100 ea 08/18/23 06/21/24 Rx diagnostic) blood-glucose sensor (Dexcom G7 08/27/23 03/22/24 History Sensor device) fenofibrate nanocrystallized 145 145 mg PO HS 08/27/23 08/01/24 History mg tablet levothyroxine 50 mcg tablet 50 mcg PO QAM 90 days #90 tabs 08/27/23 08/01/24 Rx nitroglycerin 0.4 mg sublingual 0.4 mg sublingual UD PRN Chest Pain 08/27/23 08/01/24 History tablet cyanocobalamin (vitamin B-12) 1,000 mcg PO HS 12/29/23 08/01/24 History 1,000 mcg tablet (Vitamin B-12) insulin glargine 100 unit/mL (3 36 unit subcut HS 12/29/23 08/01/24 History mL) subcutaneous pen (Basaglar KwikPen U-100 Insulin) losartan 50 mg-hydrochlorothiazide 1 tab PO HS 12/29/23 08/01/24 History 12.5 mg tablet pantoprazole 40 mg tablet,delayed 40 mg PO HS 12/29/23 08/01/24 History release ticagrelor 90 mg tablet (Brilinta) 90 mg PO BID 01/06/24 08/01/24 History oxycodone-acetaminophen 5 mg-325 1 - 2 tab PO Q4H PRN pain #12 tabs 01/08/24 08/01/24 Rx mg tablet (Percocet) rosuvastatin 40 mg tablet (Crestor) 40 mg PO HS #90 tabs 03/21/24 08/01/24 Rx semaglutide 1 mg/dose (4 mg/3 mL) 1 mg (0.75 mL) subcut Q7D 90 days 03/22/24 08/01/24 Rx subcutaneous pen injector #9 mL magnesium oxide 800 mg PO DAILY 06/21/24 08/01/24 History insulin aspart U-100 100 unit/mL 35 unit (0.35 mL) subcut DAILY #15 07/18/24 08/01/24 Rx (3 mL) subcutaneous pen (Novolog mL FlexPen U-100 Insulin aspart) metoprolol tartrate 25 mg tablet 12.5 mg PO UD 08/01/24 08/01/24 History Patient History Medical History Hx of myocardial infarction PAC (premature atrial contraction) follows w/ Ayesha Mosquera Chronic back pain CAD (coronary artery disease) s/p mid RCA stent 2009 s/p stent to RCA 09/04/23 (also with moderate 50% LAD disease in mid vessel) PAD (peripheral artery disease) - carotid and lower extremity artery disease Carotid artery disease - Per 12/11/23 neck CTA "at least 90% stenosis with near occlusion involving the proximal cervical segments of the internal carotid arteries bilaterally, right greater than left." - S/p Right TCAR 01/06/24 History of paresthesia GERD (gastroesophageal reflux disease) Subclinical hypothyroidism Hypertension Dyslipidemia Diabetic peripheral neuropathy Anxiety Diabetes mellitus type 2, insulin dependent Depression Surgical History History of transcarotid artery revascularization (TCAR) - Right TCAR 01/06/24= Done under [facility] with Grade 2 view with Gomez #2. ETT #7.0 - Per anesthesia progress note= "Patient requiring phenylephrine infusion to maintain appropriate post TCAR blood pressure. She is conversant and c/o mild neck pain. Otherwise she states she is doing well. Appropriate for transfer to ICU." History of bilateral tubal ligation Hx of section Hx laparoscopic cholecystectomy History of esophagogastroduodenoscopy (EGD) Hx of colonoscopy Hx of heart artery stent 05/09/09, "felt a burning feeling in chest/back," [facility], x1 stent 09/04/23, abn stress test, [facility], x1 stent; f/u dr. davidson, [facility] cardio Hx of cardiac cath 05/09/09, "felt a burning feeling in chest/back," [facility], x1 stent 09/04/23, abn stress test, [facility], x1 stent; f/u dr. davidson, [facility] cardio Family History Other Family history non-contributory Social History Smoking Status: Former smoker Tobacco Type: Cigarettes Second Hand Exposure: No; Do You Dip or Chew Tobacco: No; Hx Alcohol Use: No Hx Substance Use: No Preferred Language: [place] Communication Ability: Effective Utility Locate Technician Required: No Beliefs That Will Affect Care: None Current Living Situation: Spouse Feels Safe at Home: Yes Assistive Devices: Cane Review of Systems Review of Systems: All systems reviewed & are unremarkable except as noted in HPI & below Physical Exam Constitutional: WD/WN, vitals as above Respiratory: normal respiratory effort, lungs clear to auscultation Cardiovascular: Rate/Rhythm: regular rate and regular rhythm Gastrointestinal (Abdomen): mild epigastric tenderness, no guarding, soft, normal bowel sounds. Psychiatric: Orientation: alert and oriented x 3 Affect: euthymic affect Results & Data Vital Signs (Past 12 Hours) Vital Signs Temp Pulse Pulse Resp BP BP Pulse Ox 08/01/24 14:20 72 20 132/72 98 08/01/24 14:16 85 08/01/24 13:20 97.7 F 78 20 139/66 98 08/01/24 12:50 98.2 F 82 17 132/74 97 08/01/24 12:46 98.2 F 84 18 145/66 H 98 08/01/24 12:35 98.2 F 88 20 146/75 H 98 08/01/24 12:15 86 17 138/77 98 08/01/24 10:21 91 H 08/01/24 10:05 97.0 F L 92 H 20 121/71 98 O2 Del Method 08/01/24 14:20 08/01/24 14:16 08/01/24 13:20 08/01/24 12:50 08/01/24 12:46 08/01/24 12:35 08/01/24 12:15 Room Air 08/01/24 10:21 08/01/24 10:05 Room Air Coding Level of Care Code 40835 INT INP/OBS CARE 2/55MIN Diagnoses Symptomatic anemia D64.9 Melena K92.1
[2024-08-01] MEDS: PANTOPRAZOLE BOLUS/DRIP IV STA (17:26)
[2024-08-01] MEDS: INSULIN ASPART PER UNIT CHARGE SC SCH (17:49)
--- NOTE | 2024-08-01 18:32 | Electrocardiogram Report ---
Test Reason : Blood Pressure : */* mmHG Vent. Rate : 92 BPM Atrial Rate : 92 BPM P-R Int : 156 ms QRS Dur : 92 ms QT Int : 368 ms P-R-T Axes : 80 76 19 degrees QTcB Int : 455 ms Normal sinus rhythm Nonspecific ST abnormality Abnormal ECG When compared with ECG of 07-Jan-2024 07:17, Vent. rate has increased by [address] no longer elevated in Inferior leads T wave inversion now evident in Inferior leads Confirmed by Grey Hall ([id number]) on 08/01/2024 6:32:42 PM Referred By: Ayesha Mosquera Confirmed By: Grey Hall
[2024-08-01] MEDS: GABAPENTIN 300 MG CAP PO SCH (21:27)
[2024-08-01] MEDS: ROSUVASTATIN CALCIUM 20 MG TAB PO SCH (21:27)
[2024-08-01] MEDS: VENLAFAXINE HCL XR 37.5 MG CAPXR PO SCH (21:27)
[2024-08-01] MEDS: CITALOPRAM 20 MG TAB PO SCH (21:27)
[2024-08-01] MEDS: ATENOLOL 25 MG TABLET PO SCH (21:28)
[2024-08-01 23:13] LABS: Hematocrit (blood only) 24.2 % (37.0-47.0); Hemoglobin 7.6 g/dl (12.0-16.0); Mean Corpuscular Hemoglobin 26.7 pg (25.0-34.0); Mean Corpuscular Hgb Conc 31.4 g/dL (32.0-36.0); Mean Corpuscular Volume 84.9 fL (80.0-100.0); Mean Platelet Volume 10.8 fL (9.4-12.4); Platelet Count 357 K/uL (130-400); RDW Coefficient of Variation 14.7 % (11.5-14.5); RDW Standard Deviation 45.3 fL (36.4-46.3); Red Blood Count 2.85 M/uL (4.20-5.40); White Blood Count 12.37 K/ul (4.8-10.8)
[2024-08-02] MEDS: LEVOTHYROXINE SODIUM 50 MCG TABLET PO SCH (06:16)
[2024-08-02 06:45] LABS: Basophils # (auto) 0.06 K/uL (0.00-0.20); Basophils % (auto) 0.5 %; Eosinophils % (auto) 1.7 %; Hematocrit (blood only) 23.9 % (37.0-47.0); Hemoglobin 7.6 g/dl (12.0-16.0); Immature Granulocytes # (auto) 0.05 K/uL (0.01-0.20); Immature Granulocytes % (auto) 0.4 %; Lymphocytes # (auto) 3.55 K/uL (1.20-3.40); Lymphocytes % (auto) 29.9 %; Mean Corpuscular Hgb Conc 31.8 g/dL (32.0-36.0); Mean Corpuscular Volume 85.1 fL (80.0-100.0); Mean Platelet Volume 10.6 fL (9.4-12.4); Monocytes # (auto) 0.76 K/uL (0.11-0.59); Monocytes % (auto) 6.4 %; Neutrophils # (auto) 7.27 K/uL (1.40-6.50); Neutrophils % (auto) 61.1 %; Platelet Count 357 K/uL (130-400); RDW Coefficient of Variation 14.8 % (11.5-14.5); RDW Standard Deviation 45.8 fL (36.4-46.3); Red Blood Count 2.81 M/uL (4.20-5.40); White Blood Count 11.89 K/ul (4.8-10.8)
[2024-08-02 07:04] LABS: BUN Creatinine Ratio 21.1 (10-20); Calcium 9.2 mg/dl (8.6-10.3); Creatinine Clr Calc Pharmacy 77.4 ml/min; Magnesium 1.8 mg/dl (1.7-2.4)
--- NOTE | 2024-08-02 07:04 | Communication Note ---
Date of Service: August 02, 2024 Patient has iron defiency suggesting more chronic blood loss.... EGD today. Suggest iv while inpatient then oral at discharge
[2024-08-02 07:08] LABS: Polychromasia 1+
[2024-08-02 07:59] LABS: Estimated Average Glucose 111 mg/dl; Hemoglobin A1C 5.5 % (4.5-5.6)
[2024-08-02] MEDS: IRON SUCROSE 200 MG in SODIUM CHLORIDE 0.9% 100 ML IV ONE (08:43)
--- NOTE | 2024-08-02 09:49 | History & Physical Bridge Note ---
Date of Service August 02, 2024 History & Physical Bridge Note I have examined the patient, reviewed the History & Physical and in the interval since the performance of the History & Physical I have noted the following changes of clinical significance: no changes noted. no sob or chest pain. no abdominal pain. no further dark stools. - plan for EGD today. Supervising Physician Co-Signing Physician Notes Agree with above
[2024-08-02] MEDS: GABAPENTIN 300 MG CAP PO SCH (10:34)
--- NOTE | 2024-08-02 13:09 | Anesthesiology Consultation ---
Date of Service August 02, 2024 Assessment & Plan ASA ASA3 Proposed Anesthesia Anesthesia Type: MAC Risk / Benefits Reviewed With: PT / POA / Parent / Guardian, Accepts Plan and Informed Consent Obtained History Surgery Operation Date: 08/02/24 16:30 Proposed Procedures p Esophagogastroduodenoscopy Dr. Scott Chavez MD Height/Weight Height: 5 ft 6 in Weight: 94.2 kg Allergies Allergy/AdvReac Type Severity Reaction Status Date / Time metformin Allergy Unknown Nausea Verified 06/21/24 09:50 wheat Allergy Unknown throat Verified 06/21/24 09:50 tightness erythromycin base AdvReac Unknown Nausea Verified 06/21/24 09:50 Medications Home Medications Medication Instructions Recorded Confirmed Last Taken aspirin 81 mg tablet 81 mg PO QAM 12/07/18 08/01/24 05/03/24 05:00 cholecalciferol (vitamin D3) 50 2,000 units PO HS #1 cap 12/07/18 08/01/24 05/02/24 20:30 mcg (2,000 unit) capsule citalopram 20 mg tablet (Celexa) 20 mg PO UD 12/07/18 08/01/24 05/02/24 20:30 lancets 25 gauge #100 ea 12/07/18 06/21/24 Unknown atenolol 25 mg tablet 12.5 mg PO UD 08/06/20 08/01/24 05/03/24 05:00 gabapentin 300 mg capsule 300 - 600 mg PO TID 07/15/21 08/01/24 05/02/24 17:00 potassium chloride 10 mEq 10 meq PO HS 07/15/21 08/01/24 05/02/24 21:00 capsule,extended release venlafaxine 37.5 mg 37.5 mg PO HS 07/31/22 08/01/24 05/02/24 21:00 capsule,extended release 24 hr (Effexor XR) pen needle, diabetic 32 gauge x #500 ea 07/24/23 06/21/24 Unknown " (BD Ultra-Fine Rebeca Pen Needle) OneTouch Ultra Test (blood sugar #100 ea 08/18/23 06/21/24 Unknown diagnostic) blood-glucose sensor (DexActionIQ G7 08/27/23 03/22/24 Unknown Sensor device) fenofibrate nanocrystallized 145 145 mg PO HS 08/27/23 08/01/24 05/02/24 20:30 mg tablet levothyroxine 50 mcg tablet 50 mcg PO QAM 90 days #90 tabs 08/27/23 08/01/24 05/02/24 08:00 nitroglycerin 0.4 mg sublingual 0.4 mg sublingual UD PRN Chest Pain 08/27/23 08/01/24 Unknown tablet cyanocobalamin (vitamin B-12) 1,000 mcg PO HS 12/29/23 08/01/24 05/02/24 20:30 1,000 mcg tablet (Vitamin B-12) insulin glargine 100 unit/mL (3 36 unit subcut HS 12/29/23 08/01/24 05/01/24 21:00 mL) subcutaneous pen (Basaglar 34 units KwikPen U-100 Insulin) losartan 50 mg-hydrochlorothiazide 1 tab PO HS 12/29/23 08/01/24 05/03/24 05:00 12.5 mg tablet pantoprazole 40 mg tablet,delayed 40 mg PO HS 12/29/23 08/01/24 05/02/24 21:00 release ticagrelor 90 mg tablet (Brilinta) 90 mg PO BID 01/06/24 08/01/24 05/03/24 05:00 oxycodone-acetaminophen 5 mg-325 1 - 2 tab PO Q4H PRN pain #12 tabs 01/08/24 08/01/24 Unknown mg tablet (Percocet) rosuvastatin 40 mg tablet (Crestor) 40 mg PO HS #90 tabs 03/21/24 08/01/24 05/02/24 21:00 semaglutide 1 mg/dose (4 mg/3 mL) 1 mg (0.75 mL) subcut Q7D 90 days 03/22/24 08/01/24 04/24/24 subcutaneous pen injector #9 mL magnesium oxide 800 mg PO DAILY 06/21/24 08/01/24 Unknown insulin aspart U-100 100 unit/mL 35 unit (0.35 mL) subcut DAILY #15 07/18/24 08/01/24 Unknown (3 mL) subcutaneous pen (Novolog mL FlexPen U-100 Insulin aspart) metoprolol tartrate 25 mg tablet 12.5 mg PO UD 08/01/24 08/01/24 Unknown Active Medications Generic Name Dose Route Start Last Admin Trade Name Celso PRN Reason Stop Dose Admin Atenolol 12.5 mg 08/01/24 21:00 08/02/24 08:28 Atenolol 25 Mg Tablet PO 08/31/24 20:59 12.5 mg BID KENNEDY Administration Citalopram Hydrobromide 20 mg 08/01/24 21:00 08/01/24 21:27 Citalopram 20 Mg Tab PO 08/31/24 20:59 20 mg HS KENNEDY Administration Gabapentin 600 mg 08/01/24 21:00 08/02/24 08:27 Gabapentin 300 Mg Cap PO 08/31/24 20:59 600 mg BID KENNEDY Administration Gabapentin 300 mg 08/02/24 10:30 08/02/24 10:34 Gabapentin 300 Mg Cap PO 09/01/24 10:29 300 mg DAILYBL KENNEDY Administration Pantoprazole Sodium 40 mg/ 100 mls @ 20 mls/hr 08/01/24 12:00 08/02/24 12:56 Dextrose IV 08/31/24 11:59 Infused Q5H KENNEDY Infusion 8 MG/HR Insulin Aspart 0 units 08/01/24 16:30 08/02/24 11:54 Insulin Aspart Per Unit Charge SC 08/31/24 16:29 Not Given ACHS KENNEDY Levothyroxine Sodium 50 mcg 08/02/24 06:30 08/02/24 06:16 Levothyroxine Sodium 50 Mcg Tablet PO 09/01/24 06:29 50 mcg DAILYBB KENNEDY Administration Rosuvastatin Calcium 40 mg 08/01/24 21:00 08/01/24 21:27 Rosuvastatin Calcium 20 Mg Tab PO 08/31/24 20:59 40 mg HS KENNEDY Administration Venlafaxine HCl 37.5 mg 08/01/24 21:00 08/01/24 21:27 Venlafaxine Hcl Xr 37.5 Mg Capxr PO 08/31/24 20:59 37.5 mg HS KENNEDY Administration NPO Date Last Intake of Fluids: 08/02/24 Time Last Intake of Fluids: 11:00 Last Intake of Fluids Comment: sips with medication Date Last Intake of Solids: 07/31/24 Time Last Intake of Solids: 17:00 Past Medical History Medical History Hx of myocardial infarction PAC (premature atrial contraction) follows w/ Ayesha Mosquera Chronic back pain CAD (coronary artery disease) s/p mid RCA stent 2009 s/p stent to RCA 09/04/23 (also with moderate 50% LAD disease in mid vessel) PAD (peripheral artery disease) - carotid and lower extremity artery disease Carotid artery disease - Per 12/11/23 neck CTA "at least 90% stenosis with near occlusion involving the proximal cervical segments of the internal carotid arteries bilaterally, right greater than left." - S/p Right TCAR 01/06/24 History of paresthesia GERD (gastroesophageal reflux disease) Subclinical hypothyroidism Hypertension Dyslipidemia Diabetic peripheral neuropathy Anxiety Diabetes mellitus type 2, insulin dependent Depression Exercise / Class Metabolic Activity II 4-5 Yardwork/Stairs/Walk up hill Past Family History Family History Other Family history non-contributory Past Surgical History Surgical History History of transcarotid artery revascularization (TCAR) - Right TCAR 01/06/24= Done under [facility] with Grade 2 view with Gomez #2. ETT #7.0 - Per anesthesia progress note= "Patient requiring phenylephrine infusion to maintain appropriate post TCAR blood pressure. She is conversant and c/o mild neck pain. Otherwise she states she is doing well. Appropriate for transfer to ICU." History of bilateral tubal ligation Hx of section Hx laparoscopic cholecystectomy History of esophagogastroduodenoscopy (EGD) Hx of colonoscopy Hx of heart artery stent 05/09/09, "felt a burning feeling in chest/back," [facility], x1 stent 09/04/23, abn stress test, [facility], x1 stent; f/u dr. davidson, ps cardio Hx of cardiac cath 05/09/09, "felt a burning feeling in chest/back," [facility], x1 stent 09/04/23, abn stress test, [facility], x1 stent; f/u dr. davidson, [place] cardio Past Anesthesia History No Hx of Anesthesia Complications and No Family Hx of Anesthesia Complications History of PONV No Hx of PONV and No Hx of Motion Sickness Social History Smoking Status: Former smoker Do You Dip or Chew Tobacco: No Hx Alcohol Use: No Hx Substance Use: No substance use type: does not use Physical Exam Vital Signs Last Vital Signs Temp 36.4 C L 08/02/24 11:58 Pulse 70 08/02/24 11:58 Resp 14 08/02/24 11:58 BP 121/55 L 08/02/24 11:58 Pulse Ox 99 08/02/24 11:58 O2 Del Method Room Air 08/02/24 11:58 O2 Flow Rate 0 08/01/24 18:34 Constitutional no acute distress ENMT Mouth: + dentition abnormality, + poor dentition (multiple missing and chipped teeth; none loose), + chipped teeth and + small oral opening Thyromental Distance: > or= 3.5 Finger Breadths Mallampati Class: III Neck normal visual inspection Respiratory normal respiratory effort; no respiratory distress Auscultation: lungs clear to auscultation bilaterally Cardiovascular Rate/Rhythm: regular rate and regular rhythm Heart Sounds: no murmur Musculoskeletal Spine: normal cervical ROM Psychiatric Orientation: alert and oriented x 3 Testing Laboratory Results 08/02/24 06:22 08/02/24 06:22 PT 10.9 Seconds (9.0-12.0) 08/01/24 10:25 INR 1.0 (0.9-1.1) 08/01/24 10:25 Hemoglobin A1c 5.5 % (4.5-5.6) 08/02/24 06:22 Blood Type O Positive 08/01/24 11:19 Antibody Screen NEGATIVE 08/01/24 11:19 08/02/24 08/02/24 11:48 08:13 POC Glucose 123 H 141 H Day of Procedure Evaluation. Date of Surgery August 02, 2024 Height/Weight Height: 5 ft 6 in Weight: 94.2 kg Vital Signs Last Vital Signs Temp 36.4 C L 08/02/24 11:58 Pulse 70 08/02/24 11:58 Resp 14 08/02/24 11:58 BP 121/55 L 08/02/24 11:58 Pulse Ox 99 08/02/24 11:58 O2 Del Method Room Air 08/02/24 11:58 O2 Flow Rate 0 08/01/24 18:34 Allergies Allergy/AdvReac Type Severity Reaction Status Date / Time metformin Allergy Unknown Nausea Verified 06/21/24 09:50 wheat Allergy Unknown throat Verified 06/21/24 09:50 tightness erythromycin base AdvReac Unknown Nausea Verified 06/21/24 09:50 Medications Home Medications Medication Instructions Recorded Confirmed Last Taken aspirin 81 mg tablet 81 mg PO QAM 12/07/18 08/01/24 05/03/24 05:00 cholecalciferol (vitamin D3) 50 2,000 units PO HS #1 cap 12/07/18 08/01/24 05/02/24 20:30 mcg (2,000 unit) capsule citalopram 20 mg tablet (Celexa) 20 mg PO UD 12/07/18 08/01/24 05/02/24 20:30 lancets 25 gauge #100 ea 12/07/18 06/21/24 Unknown atenolol 25 mg tablet 12.5 mg PO UD 08/06/20 08/01/24 05/03/24 05:00 gabapentin 300 mg capsule 300 - 600 mg PO TID 07/15/21 08/01/24 05/02/24 17:00 potassium chloride 10 mEq 10 meq PO HS 07/15/21 08/01/24 05/02/24 21:00 capsule,extended release venlafaxine 37.5 mg 37.5 mg PO HS 07/31/22 08/01/24 05/02/24 21:00 capsule,extended release 24 hr (Effexor XR) pen needle, diabetic 32 gauge x #500 ea 07/24/23 06/21/24 Unknown 5/32" (BD Ultra-Fine Rebeca Pen Needle) OneTouch Ultra Test (blood sugar #100 ea 08/18/23 06/21/24 Unknown diagnostic) blood-glucose sensor (Dexcom G7 08/27/23 03/22/24 Unknown Sensor device) fenofibrate nanocrystallized 145 145 mg PO HS 08/27/23 08/01/24 05/02/24 20:30 mg tablet levothyroxine 50 mcg tablet 50 mcg PO QAM 90 days #90 tabs 08/27/23 08/01/24 05/02/24 08:00 nitroglycerin 0.4 mg sublingual 0.4 mg sublingual UD PRN Chest Pain 08/27/23 08/01/24 Unknown tablet cyanocobalamin (vitamin B-12) 1,000 mcg PO HS 10/08/24 05/12/25 02/10/25 20:30 1,000 mcg tablet (Vitamin B-12) insulin glargine 100 unit/mL (3 36 unit subcut HS 12/29/23 08/01/24 05/01/24 21:00 mL) subcutaneous pen (Basaglar 34 units KwikPen U-100 Insulin) losartan 50 mg-hydrochlorothiazide 1 tab PO HS 12/29/23 08/01/24 05/03/24 05:00 12.5 mg tablet pantoprazole 40 mg tablet,delayed 40 mg PO HS 12/29/23 08/01/24 05/02/24 21:00 release ticagrelor 90 mg tablet (Brilinta) 90 mg PO BID 01/06/24 08/01/24 05/03/24 05:00 oxycodone-acetaminophen 5 mg-325 1 - 2 tab PO Q4H PRN pain #12 tabs 01/08/24 08/01/24 Unknown mg tablet (Percocet) rosuvastatin 40 mg tablet (Crestor) 40 mg PO HS #90 tabs 03/21/24 08/01/24 05/02/24 21:00 semaglutide 1 mg/dose (4 mg/3 mL) 1 mg (0.75 mL) subcut Q7D 90 days 03/22/24 08/01/24 04/24/24 subcutaneous pen injector #9 mL magnesium oxide 800 mg PO DAILY 06/21/24 08/01/24 Unknown insulin aspart U-100 100 unit/mL 35 unit (0.35 mL) subcut DAILY #15 07/18/24 08/01/24 Unknown (3 mL) subcutaneous pen (Novolog mL FlexPen U-100 Insulin aspart) metoprolol tartrate 25 mg tablet 12.5 mg PO UD 08/01/24 08/01/24 Unknown Active Medications Generic Name Dose Route Start Last Admin Trade Name Freq PRN Reason Stop Dose Admin Atenolol 12.5 mg 08/01/24 21:00 08/02/24 08:28 Atenolol 25 Mg Tablet PO 08/31/24 20:59 12.5 mg BID KENNEDY Administration Citalopram Hydrobromide 20 mg 08/01/24 21:00 08/01/24 21:27 Citalopram 20 Mg Tab PO 08/31/24 20:59 20 mg HS KENNEDY Administration Gabapentin 600 mg 08/01/24 21:00 08/02/24 08:27 Gabapentin 300 Mg Cap PO 08/31/24 20:59 600 mg BID KENNEDY Administration Gabapentin 300 mg 08/02/24 10:30 08/02/24 10:34 Gabapentin 300 Mg Cap PO 09/01/24 10:29 300 mg DAILYBL KENNEDY Administration Pantoprazole Sodium 40 mg/ 100 mls @ 20 mls/hr 08/01/24 12:00 08/02/24 12:56 Dextrose IV 08/31/24 11:59 Infused Q5H KENNEDY Infusion 8 MG/HR Insulin Aspart 0 units 08/01/24 16:30 08/02/24 11:54 Insulin Aspart Per Unit Charge SC 08/31/24 16:29 Not Given ACHS KENNEDY Levothyroxine Sodium 50 mcg 08/02/24 06:30 08/02/24 06:16 Levothyroxine Sodium 50 Mcg Tablet PO 09/01/24 06:29 50 mcg DAILYBB KENNEDY Administration Rosuvastatin Calcium 40 mg 08/01/24 21:00 08/01/24 21:27 Rosuvastatin Calcium 20 Mg Tab PO 08/31/24 20:59 40 mg HS KENNEDY Administration Venlafaxine HCl 37.5 mg 08/01/24 21:00 08/01/24 21:27 Venlafaxine Hcl Xr 37.5 Mg Capxr PO 08/31/24 20:59 37.5 mg HS KENNEDY Administration Past Anesthesia History No Hx of Anesthesia Complications and No Family Hx of Anesthesia Complications History of PONV No Hx of PONV and No Hx of Motion Sickness NPO Date Last Intake of Fluids: 08/02/24 Time Last Intake of Fluids: 11:00 Last Intake of Fluids Comment: sips with medication Date Last Intake of Solids: 07/31/24 Time Last Intake of Solids: 17:00 HCG & FBG Results 08/02/24 08/02/24 11:48 08:13 POC Glucose 123 H 141 H Home Medications Home Medications Medication Instructions Recorded Confirmed Last Taken aspirin 81 mg tablet 81 mg PO QAM 12/07/18 08/01/24 05/03/24 05:00 cholecalciferol (vitamin D3) 50 2,000 units PO HS #1 cap 12/07/18 08/01/2425 20:30 mcg (2,000 unit) capsule citalopram 20 mg tablet (Celexa) 20 mg PO UD 12/07/18 08/01/24 05/02/24 20:30 lancets 25 gauge #100 ea 12/07/18 06/21/24 Unknown atenolol 25 mg tablet 12.5 mg PO UD 08/06/20 08/01/24 05/03/24 05:00 gabapentin 300 mg capsule 300 - 600 mg PO TID 07/15/21 08/01/24 05/02/24 17:00 potassium chloride 10 mEq 10 meq PO HS 07/15/21 08/01/24 05/02/24 21:00 capsule,extended release venlafaxine 37.5 mg 37.5 mg PO HS 07/31/22 08/01/24 05/02/24 21:00 capsule,extended release 24 hr (Effexor XR) pen needle, diabetic 32 gauge x #500 ea 07/24/23 06/21/24 Unknown 5/32" (BD Ultra-Fine Rebeca Pen Needle) OneTouch Ultra Test (blood sugar #100 ea 08/18/23 06/21/24 Unknown diagnostic) blood-glucose sensor (Dexcom G7 08/27/23 03/22/24 Unknown Sensor device) fenofibrate nanocrystallized 145 145 mg PO HS 08/27/23 08/01/24 05/02/24 20:30 mg tablet levothyroxine 50 mcg tablet 50 mcg PO QAM 90 days #90 tabs 08/27/23 08/01/24 05/02/24 08:00 nitroglycerin 0.4 mg sublingual 0.4 mg sublingual UD PRN Chest Pain 08/27/23 08/01/24 Unknown tablet cyanocobalamin (vitamin B-12) 1,000 mcg PO HS 12/29/23 08/01/24 05/02/24 20:30 1,000 mcg tablet (Vitamin B-12) insulin glargine 100 unit/mL (3 36 unit subcut HS 12/29/23 08/01/24 05/01/24 21:00 mL) subcutaneous pen (Basaglar 34 units KwikPen U-100 Insulin) losartan 50 mg-hydrochlorothiazide 1 tab PO HS 12/29/23 08/01/2425 05:00 12.5 mg tablet pantoprazole 40 mg tablet,delayed 40 mg PO HS 12/29/23 08/01/24 05/02/24 21:00 release ticagrelor 90 mg tablet (Brilinta) 90 mg PO BID 01/06/24 08/01/24 05/03/24 05:00 oxycodone-acetaminophen 5 mg-325 1 - 2 tab PO Q4H PRN pain #12 tabs 01/08/24 08/01/24 Unknown mg tablet (Percocet) rosuvastatin 40 mg tablet (Crestor) 40 mg PO HS #90 tabs 03/21/24 08/01/24 05/02/24 21:00 semaglutide 1 mg/dose (4 mg/3 mL) 1 mg (0.75 mL) subcut Q7D 90 days 03/22/24 08/01/24 04/24/24 subcutaneous pen injector #9 mL magnesium oxide 800 mg PO DAILY 06/21/24 08/01/24 Unknown insulin aspart U-100 100 unit/mL 35 unit (0.35 mL) subcut DAILY #15 07/18/24 08/01/24 Unknown (3 mL) subcutaneous pen (Novolog mL FlexPen U-100 Insulin aspart) metoprolol tartrate 25 mg tablet 12.5 mg PO UD 08/01/24 08/01/24 Unknown Active Medications Generic Name Dose Route Start Last Admin Trade Name Freq PRN Reason Stop Dose Admin Atenolol 12.5 mg 08/01/24 21:00 08/02/24 08:28 Atenolol 25 Mg Tablet PO 08/31/24 20:59 12.5 mg BID KENNEDY Administration Citalopram Hydrobromide 20 mg 08/01/24 21:00 08/01/24 21:27 Citalopram 20 Mg Tab PO 08/31/24 20:59 20 mg HS KENNEDY Administration Gabapentin 600 mg 08/01/24 21:00 08/02/24 08:27 Gabapentin 300 Mg Cap PO 08/31/24 20:59 600 mg BID KENNEDY Administration Gabapentin 300 mg 08/02/24 10:30 08/02/24 10:34 Gabapentin 300 Mg Cap PO 09/01/24 10:29 300 mg DAILYBL KENNEDY Administration Pantoprazole Sodium 40 mg/ 100 mls @ 20 mls/hr 08/01/24 12:00 08/02/24 12:56 Dextrose IV 08/31/24 11:59 Infused Q5H KENNEDY Infusion 8 MG/HR Insulin Aspart 0 units 08/01/24 16:30 08/02/24 11:54 Insulin Aspart Per Unit Charge SC 08/31/24 16:29 Not Given ACHS KENNEDY Levothyroxine Sodium 50 mcg 08/02/24 06:30 08/02/24 06:16 Levothyroxine Sodium 50 Mcg Tablet PO 09/01/24 06:29 50 mcg DAILYBB KENNEDY Administration Rosuvastatin Calcium 40 mg 08/01/24 21:00 08/01/24 21:27 Rosuvastatin Calcium 20 Mg Tab PO 08/31/24 20:59 40 mg HS KENNEDY Administration Venlafaxine HCl 37.5 mg 08/01/24 21:00 08/01/24 21:27 Venlafaxine Hcl Xr 37.5 Mg Capxr PO 08/31/24 20:59 37.5 mg HS KENNEDY Administration Exercise / Class Metabolic Activity Metabolic Activity: II 4-5 Yardwork/Stairs/Walk up hill Physical Exam Constitutional: no acute distress Mouth: + dentition abnormality, + poor dentition (multiple missing and chipped teeth; none loose), + chipped teeth and + small oral opening Thyromental Distance: > or= 3.5 Finger Breadths Mallampati Class: III Neck: + visual inspection normal Respiratory: + respiratory effort normal and + clear to auscultation bilaterally; no respiratory distress Cardiovascular: + regular rate and + regular rhythm; no murmur Musculoskeletal: no limited cervical ROM Psychiatric: + alert and + oriented x 3 ASA ASA3 Proposed Anesthesia Proposed Anesthesia: MAC Risk / Benefits Reviewed With: PT / POA / Parent / Guardian, Accepts Plan and Informed Consent Obtained
--- NOTE | 2024-08-02 13:46 | Communication Note ---
Date of Service: August 02, 2024 EGD No blood in the esophagus or stomach. Trace blood noted in the third part of the duodenum. Patient was given glucagon and Robinul to inhibit duodenal c ontractions. 2 small pinpoint lesions identified. One cauterized with minimal bleeding second 1 significant contact bleeding cauterized with hemostasis. This is consistent with potential source for her melena. More distal AVMs are not excluded. Recommend continue her PPI. Resume Brilinta if required in 2 to 3 days. Iron supplementation for documented iron deficiency if patient continues to have anemia despite iron replacement which should be continuous consider video capsule endoscopy.
--- NOTE | 2024-08-02 13:50 | GI REPORT ---
[facility] Patient: EVER FUNEZ : 1950 Sex at : Female Age: 74 Years Procedure: Upper GI endoscopy Date: 08/02/2024 Attending Physician: Jeremiah Chavez MD Referring MD: Ayesha Mosquera Indications: - Suspected upper gastrointestinal bleeding - Melena Medications: - Monitored Anesthesia Care - Patient also given Robinul 0.4 mg and glucagon 1 mg to inhibit duodenal motility Complications: - No immediate complications. Estimated Blood Loss: - Estimated blood loss was minimal. Procedure: - The egd scope was introduced through the mouth and advanced to the third part of the duodenum. - The upper GI endoscopy was accomplished without difficulty. - The patient tolerated the procedure well. Findings: - The examined esophagus was normal. - Multiple small sessile polyps were found in the gastric body. Biopsies were taken with a cold forceps for histology. - Two small angiodysplastic lesions with bleeding were found in the third portion of the duodenum. Coagulation for hemostasis using bipolar probe was successful. Impression: - Normal esophagus. - Multiple gastric polyps. Biopsied. - Two bleeding angiodysplastic lesions in the duodenum. Treated with bipolar cautery. Recommendation: - Await pathology results. - Return to referring physician. - Replaced iron deficiency. Resume Brilinta in 3 to 4 days in the absence of ongoing melena. I suspect with continuous iron replacement she should be able to keep up to her chronic low-grade blood loss. AVMs beyond the reach of the upper endoscope are not excluded. 1 of these AVMs certainly could be a source for melena and iron deficiency based on spontaneous and significant contact bleeding. Procedure Code(s): - 36743-35, Esophagogastroduodenoscopy, flexible, transoral; with control of bleeding, any method - 08436, Esophagogastroduodenoscopy, flexible, transoral; with biopsy, single or multiple Diagnosis Code(s): - K92.1, Melena (includes Hematochezia) - K31.7, Polyp of stomach and duodenum - K31.811, Angiodysplasia of stomach and duodenum with bleeding CPT(R) - 2023 copyright [employer]. All Rights Reserved. The CPT codes, CCI edits and ICD codes generated are intended as suggestions and were generated based on input data. These codes are preliminary and upon remote coders review may be revised to meet current compliance and payer requirements. The provider is responsible for the final determination of appropriate codes, and modifiers. Jeremiah Chavez MD This document has been electronically signed. Note Initiated:08/02/2024 Note Completed:08/02/2024 1:50 PM \\[id number]
--- NOTE | 2024-08-02 14:53 | Anesthesiology Progress Note ---
Date of Service August 02, 2024 Anesthesia Post Procedure Vital Signs Vital Signs: Temp Pulse Pulse Pulse Resp BP BP 08/02/24 14:18 77 16 110/58 L 08/02/24 14:03 75 16 100/53 L 08/02/24 13:48 36.4 C L 75 16 85/44 L 08/02/24 11:58 36.4 C L 70 14 121/55 L 08/02/24 11:14 36.6 C 66 18 110/64 08/02/24 08:48 08/02/24 07:39 36.6 C 72 18 112/69 08/02/24 07:16 76 08/02/24 04:00 36.8 C 76 20 112/62 08/01/24 23:46 36.7 C 75 18 122/64 08/01/24 21:36 84 08/01/24 21:30 08/01/24 21:13 36.6 C 86 16 147/73 H 08/01/24 20:43 36.6 C 88 16 117/70 08/01/24 20:40 36.6 C 88 16 117/70 08/01/24 19:43 36.7 C 88 16 130/76 08/01/24 19:30 36.6 C 86 18 147/77 H 08/01/24 19:13 36.5 C 83 16 145/76 H 08/01/24 18:58 36.6 C 85 18 128/73 08/01/24 18:34 36.8 C 87 18 118/69 08/01/24 17:57 36.5 C 82 18 118/57 L 08/01/24 16:52 85 08/01/24 15:45 36.5 C 97 H 18 116/57 L 08/01/24 15:00 36.5 C 86 18 118/60 08/01/24 14:55 36.5 C 97 H 18 116/57 L Pulse Ox O2 Del Method O2 Flow Rate 08/02/24 14:18 98 Room Air 08/02/24 14:03 95 Room Air 08/02/24 13:48 99 Room Air 08/02/24 11:58 99 Room Air 08/02/24 11:14 97 Room Air 08/02/24 08:48 Room Air 08/02/24 07:39 95 Room Air 08/02/24 07:16 08/02/24 04:00 95 Room Air 08/01/24 23:46 98 Room Air 08/01/24 21:36 08/01/24 21:30 Room Air 08/01/24 21:13 98 08/01/24 20:43 99 08/01/24 20:40 99 08/01/24 19:43 98 08/01/24 19:30 97 Room Air 08/01/24 19:13 98 08/01/24 18:58 97 08/01/24 18:34 97 0 08/01/24 17:57 96 Room Air 08/01/24 16:52 08/01/24 15:45 96 08/01/24 15:00 08/01/24 14:55 98 Room Air Transfer of Care Handoff Completed per policy Notes Mental Status: alert / awake / arousable and participated in evaluation Nausea / Vomiting: adequately controlled Pain: adequately controlled Airway Patency, RR, SpO2: stable & adequate BP & HR: stable & adequate Hydration State: stable & adequate Anesthetic Complications: no major complications apparent and Pt Satisfied with anesthetic care
--- NOTE | 2024-08-02 18:03 | Hospitalist Progress Note ---
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 She was noted to have melena which was heme positive on rectal exam by the ER physician. She denies any abdominal pain, nausea/vomiting. She does note she has had darker stools lately. #Symptomatic severe anemia/syncope/Acute on chronic blood loss anemia-Hgb 5.5 on admission, with melena for the last week [employer]. Is on dual antiplatelet therapy with aspirin and Brilinta for the last 6 months for her bilateral CHARISSA s/p TCAR. Does admit to some epigastric discomfort with eating the last couple of months. Does have a history of PUD and is taking Protonix once daily at home. She also was taking NSAIDs. 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 Fe studies indicate severe Fe def anemia as well. Transfused 2 units PRBCs and hgb up to 7.6 - Venofer 200mg IV daily x 3 doses started and give po Fe on discharge -follow CBC in AM -adv diet to clears only for now - Consult GI appreciated - Convert Protonix drip to Protonix 40mg IV bid push - Continue to hold aspirin and Brilinta-discussed with her vascular surgeon who recommends holding both for now and then discontinuing aspirin in the future. GI says can resume Brilinta in 2-3 days if needed -could be more AVMs as per GI-should have outpt video capsule endoscopy #CAD s/p STEMI RCA 08/2023/PAD/HLD/CHARISSA s/p bilateral TCAR-no acute issues although there are some T wave inversions in the inferior leads on ECG. No current chest pain and troponin negative. - Holding home aspirin and Brilinta for GI bleed - Continue statin, atenolol - Hold home fenofibrate, losartan/HCT due to acute blood loss #Hypothyroidism-TSH her normal -continue home LT4 #DM2 with neuropathy-no acute issues - Sliding scale NovoLog, Accu-Cheks - Continue home gabapentin #Depression/anxiety-no acute issues - Continue home Celexa DVT prophylaxis-SCDs only given GI bleed Disposition-continued stay on medical floor with telemetry, possible dc to home in 1-2 days if stable Admission and Anticipated Discharge Date Admission Date: August 01, 2024 Subjective Pt had one BM today that was black, a moderate amount. No lightheadedness, no CP or SOB. Had EGD which showed bleeding AVMs in 3rd portion of duodenum which were cauterized. Tele with NSR, PVCs, rates 60-80s Physical Exam Constitutional: WD/WN, vitals as above Eyes: + anicteric sclerae Neck: trachea midline, no thyromegaly Respiratory: normal respiratory effort, lungs clear to auscultation Cardiovascular: RRR, no murmur, no edema Chest (Breasts): Chest: normal inspection of chest Gastrointestinal (Abdomen): normal bowel sounds, soft, nontender, no hepatosplenomegaly Musculoskeletal: Extremities: extremities normal to inspection; no cyanosis and no clubbing Skin: no rashes, warm and dry Neurologic: moves all extremities and awake; no focal motor deficits Psychiatric: A+Ox3, euthymic affect Lymphatic: no lymphedema Results & Data Results & Data Vital Signs (Past 12 Hours) Vital Signs Temp Pulse Pulse Resp BP Pulse Ox Pulse Ox 08/02/24 15:38 99 08/02/24 15:31 36.5 C 72 18 107/65 99 08/02/24 15:06 79 08/02/24 14:18 77 16 110/58 L 98 08/02/24 14:03 75 16 100/53 L 95 08/02/24 13:48 36.4 C L 75 16 85/44 L 99 08/02/24 11:58 36.4 C L 70 14 121/55 L 99 08/02/24 11:14 36.6 C 66 18 110/64 97 08/02/24 08:48 08/02/24 07:39 36.6 C 72 18 112/69 95 08/02/24 07:16 76 O2 Del Method O2 Del Method 08/02/24 15:38 Room Air 08/02/24 15:31 Room Air 08/02/24 15:06 08/02/24 14:18 Room Air 08/02/24 14:03 Room Air 08/02/24 13:48 Room Air 08/02/24 11:58 Room Air 08/02/24 11:14 Room Air 08/02/24 08:48 Room Air 08/02/24 07:39 Room Air 08/02/24 07:16 Laboratory Results CBC, BMP, magnesium reviewed PG Care Time/CCT Total # of Minutes Spent Total Time Spent with Patient: Total time spent is greater than 50% in coordination of care (as documented) at patient's floor/unit and/or counseling patient: Coding Level of Care Code 84426 SUB INP/OBS CARE 235MIN Diagnoses Symptomatic anemia D64.9 CAD (coronary artery disease) I25.10 Syncope R55 Carotid artery disease I77.9
[2024-08-02] MEDS: LIDOCAINE 2% 2 ML VIAL/AMP(20MG/ML) INFIL ONE (18:30)
[2024-08-02] MEDS: PROPOFOL IV EMULSION 10 MG/ML 20 ML VIAL IV ONE ×2 (18:30)
[2024-08-02] MEDS: GLYCOPYRROLATE 0.2 MG/ML VIAL ONE (18:30)
[2024-08-02] MEDS: GLUCAGON FOR INJ 1 MG VIAL ONE (18:30)
[2024-08-02] MEDS: PANTOprazole 40 MG/10 ML SYR IV SCH (20:25)
[2024-08-03 07:16] VITALS: RESP 16
[2024-08-03 07:43] LABS: Basophils # (auto) 0.05 K/uL (0.00-0.20); Basophils % (auto) 0.4 %; Eosinophils # (auto) 0.33 K/uL (0.00-0.50); Eosinophils % (auto) 2.7 %; Hematocrit (blood only) 24.5 % (37.0-47.0); Hemoglobin 7.7 g/dl (12.0-16.0); Immature Granulocytes # (auto) 0.05 K/uL (0.01-0.20); Immature Granulocytes % (auto) 0.4 %; Lymphocytes # (auto) 2.99 K/uL (1.20-3.40); Mean Corpuscular Hemoglobin 27.2 pg (25.0-34.0); Mean Corpuscular Hgb Conc 31.4 g/dL (32.0-36.0); Mean Corpuscular Volume 86.6 fL (80.0-100.0); Mean Platelet Volume 10.9 fL (9.4-12.4); Monocytes # (auto) 0.74 K/uL (0.11-0.59); Monocytes % (auto) 5.9 %; Neutrophils # (auto) 8.29 K/uL (1.40-6.50); Neutrophils % (auto) 66.6 %; Platelet Count 343 K/uL (130-400); RDW Coefficient of Variation 15.2 % (11.5-14.5); RDW Standard Deviation 47.5 fL (36.4-46.3); Red Blood Count 2.83 M/uL (4.20-5.40); White Blood Count 12.45 K/ul (4.8-10.8)
[2024-08-03 08:02] LABS: BUN Creatinine Ratio 18.2 (10-20); Calcium 9.2 mg/dl (8.6-10.3); Creatinine Clr Calc Pharmacy 76.4 ml/min; Potassium 3.6 mmol/L (3.5-5.1)
[2024-08-03 08:08] LABS: Polychromasia 1+
[2024-08-03] MEDS: IRON SUCROSE 300 MG in SODIUM CHLORIDE 0.9% 250 ML IV ONE (09:53)
--- NOTE | 2024-08-03 10:33 | Gastroenterology Progress Note ---
Date of Service August 03, 2024 Assessment & Plan (1) Melena: (2) Anemia: Plan Patient feels improved. hgb stable currently. - continue to follow hgb/hct. transfuse as needed. - recommend continuation of protonix 40mg bid. - recommend iron supplementation. - If ongoing anemia despite iron replacement, recommend outpatient video capsule endoscopy to further evaluate for AVMs beyond the reach of the upper endoscope. Admission and Anticipated Discharge Date Admission Date: August 01, 2024 Supervising Physician Co-Signing Physician Notes Agree with above. Reviewed with Dr. Ayoub Home with follow-up CBC in 1 week. Resume Brilinta in 2 to 3 days. No aspirin. Oral iron for iron deficiency. Outpatient video capsule endoscopy. Return if further bleeding. Subjective Patient feels better today. hgb slightly improved from 7.6 to 7.7. EGD 08/02/24 - Normal esophagus. - Multiple gastric polyps. Biopsied. - Two bleeding angiodysplastic lesions in the duodenum. Treated with bipolar cautery. Review of Systems Review of Systems: All systems reviewed & are unremarkable except as noted in HPI & below Physical Exam Constitutional: WD/WN, vitals as above Respiratory: normal respiratory effort, lungs clear to auscultation Cardiovascular: Rate/Rhythm: regular rate and regular rhythm Gastrointestinal (Abdomen): normal bowel sounds, soft, nontender, no hep atosplenomegaly Psychiatric: Orientation: alert and oriented x 3 Affect: euthymic affect Results & Data Results & Data Vital Signs (Past 12 Hours) Vital Signs Temp Pulse Pulse Pulse Resp BP Pulse Ox 08/03/24 10:21 72 08/03/24 07:28 08/03/24 07:11 98.2 F 72 16 104/62 94 08/03/24 02:35 97.9 F 72 18 99/60 L 94 08/02/24 23:39 62 O2 Del Method 08/03/24 10:21 08/03/24 07:28 Room Air 08/03/24 07:11 Room Air 08/03/24 02:35 Room Air 08/02/24 23:39 Coding Level of Care Code 45697 SUB INP/OBS CARE 04/16MIN Diagnoses Melena K92.1 Anemia D64.9 Anemia type: unspecified type (2) Anemia Anemia type: unspecified type Qualified Code(s): D64.9 - Anemia, unspecified
[2024-08-03 11:07] VITALS: BP 102/62; TEMP 97.9; O2SAT 95
--- NOTE | 2024-08-03 13:29 | Discharge Summary ---
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 She was noted to have melena which was heme positive on rectal exam by the ER physician. She denies any abdominal pain, nausea/vomiting. She does note she has had darker stools lately. #Symptomatic severe anemia/syncope/Acute on chronic blood loss anemia-Hgb 5.5 on admission, with melena for the last week [employer]. Is on dual antiplatelet therapy with aspirin and Brilinta for the last 6 months for her bilateral CHARISSA s/p TCAR. Does admit to some epigastric discomfort with eating the last couple of months. Does have a history of PUD and is taking Protonix once daily at home. She also was taking NSAIDs. 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 Fe studies indicate severe Fe def anemia as well. Transfused 2 units PRBCs, Venofer 200mg IV x 1 and Venofer 300mg IV x 1 given, and hgb up to 7.6 -start po Fe on discharge -follow CBC in 1 week with PCP, please cc results to her Client Renewal Specialist Dr. Mosquera -continue soft diet x 1 week - Consult GI appreciated - received Protonix drip and now transition to Protonix 40mg po bid -avoid NSAIDs, discontinued aspirin permanently. Resume Brilinta on 08/05-disc ussed with her vascular surgeon and Cardiology -could be more AVMs as per GI-should have outpt video capsule endoscopy if anemia not improving #CAD s/p STEMI RCA 08/2023/PAD/HLD/CHARISSA s/p bilateral TCAR-no acute issues although there are some T wave inversions in the inferior leads on ECG. No current chest pain and troponin negative. - dcd home aspirin and held Brilinta for GI bleed, plan to resume Brilinta in 2 more days - Continue statin, atenolol, fenofibrate - Hold home losartan/HCT due to acute blood loss and low normal BPs-can resume by PCP when BPs rise #Hypothyroidism-TSH her normal -continue home LT4 #DM2 with neuropathy-no acute issues, did not require any Lantus her entire stay and minimal doses Novolog - Continue home gabapentin -HOLD home Lantus until glucose rises, continue prn short acting insulin #Depression/anxiety-no acute issues - Continue home Celexa DVT prophylaxis-SCDs only given GI bleed Disposition- dc to home , feeling much better Notes For Next Care Provider Check CBC within 1 week with results cc'd to Cardiology, Dr. 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 The first episode occurred in her kitchen and she had a sensation she was going to pass out and called out for help and then woke up on the kitchen floor. She went to [facility] and was discharged home and told her workup was unremarkable-review on her phone shows that she only had a CT of the head and neck but no blood work done there. The next day, she passed out again after sitting down on the toilet to urinate and felt lightheaded prior to this. She did hit the left side of her face off the bathtub when she passed out. She called her cardiology office today and they advised her to come to the ER. In the ER, she was noted to have an Hgb of 5.5 but was hemodynamically stable. She was noted to have melena which was heme positive on rectal exam by the ER physician. She denies any abdominal pain, nausea/vomiting. She does note she has had darker stools lately. Denies chest pains or shortness of breath. She will be admitted for severe symptomatic anemia with syncope. Discharge Exam Constitutional WD/WN, vitals as above Neck trachea midline, no thyromegaly Respiratory normal respiratory effort, lungs clear to auscultation Cardiovascular RRR, no murmur, no edema Chest (Breasts) Chest: normal inspection of chest Gastrointestinal (Abdomen) normal bowel sounds, soft, nontender, no hepatosplenomegaly Musculoskeletal Extremities: extremities normal to inspection; no cyanosis and no clubbing Skin no rashes, warm and dry Neurologic moves all extremities and awake; no focal motor deficits Psychiatric A+Ox3, euthymic affect Discharge Plan Discharge Items Patient Disposition: Home - Self-Care Reason For Visit: SYMPTOMATIC ANEMIA, SYNCOPE Discharge Diagnosis: GI Bleeding from AVMs Acute blood loss anemia Symptomatic anemia Syncope Condition on Discharge: Fair Activity: As commented below Lifting: Gradually increase as tolerated Bathing: No limitations Exercise/Sports: Gradually increase as tolerated Driving/Machine Use: Resume 3 days after discharge Non-emergency contact: Primary Care Provider and Passenger Service Agent Call non-emergency contact if: you have any medication questions and your symptoms worsen Follow-up/Referrals: Mahad Davis MD [Primary Care Provider] - Diet: Carb Consistent or DM2 and Low Fiber Diet Comment: stay on a soft diet for 1 more week Addtl Attending Provider Instructions: You were admitted with bleeding from your intestine-this was cauterized during an EGD and resolved. Please DO NOT TAKE aspirin anymore. You can restart your Brilinta on Saturday 08/05 if no further bleeding. You were transfused 2 units of blood and given 2 bags of IV iron. You should take oral iron pills from over the counter to help build up your blood count. Have your PCP check your blood count next week to ensure it continues to rise up. If you start having looser, dark stools or feel lightheaded again or pass out, please come back to the hospital right away. You may need to have a video capsule endoscopy (swallow a tiny camera pill) in the future if your anemia is not improving. Pending Studies at Discharge: No Stand-Alone Forms: My Applyful, Smoking Cessation Medications and DC Order Prescriptions: New ferrous sulfate 325 mg (65 mg iron) tablet 325 mg PO BID Qty: 60 0RF Continued (DME) pen needle, diabetic [BD Ultra-Fine Rebeca Pen Needle] 32 gauge x 5/32" needle See Rx Instructions .ROUTE .MEDSUPPLY Qty: 500 3RF Rx Instructions: use 4 needles daily with insulin and 1 needle weekly with Ozempic (DME) OneTouch Ultra Test Strip See Rx Instructions .Route Qty: 100 5RF Rx Instructions: Test bloood sugar 3 x daily and PRN rosuvastatin [Crestor] 40 mg tablet 40 mg PO HS Qty: 90 1RF insulin aspart U-100 [Novolog FlexPen U-100 Insulin] 100 unit/mL (3 mL) insulin pen 35 unit SQ DAILY Qty: 15 1RF Rx Instructions: per sliding scale with meals up to TDD 35 units (DME) lancets 25 gauge misc See Dose Instructions .ROUTE .MEDSUPPLY Qty: 100 Rx Instructions: test 4 times daily cholecalciferol (vitamin D3) 2,000 unit capsule 2,000 units PO HS Qty: 1 potassium chloride 10 mEq capsule, extended release 10 meq PO HS gabapentin 300 mg capsule 300 - 600 mg PO TID Rx Instructions: 600mg in am, 300mg at lunch, and 600mg in pm (DME) Dexcom G7 Sensor Device See Rx Instructions .Route Rx Instructions: As directed fenofibrate nanocrystallized 145 mg tablet 145 mg PO HS nitroglycerin 0.4 mg tablet, sublingual 0.4 mg sublingual UD PRN (Reason: Chest Pain) levothyroxine 50 mcg tablet 50 mcg PO QAM 90 Days Qty: 90 1RF venlafaxine [Effexor XR] 37.5 mg capsule,extended release 24hr 37.5 mg PO HS magnesium oxide 400 mg magnesium tablet 800 mg PO DAILY semaglutide 1 mg/dose (4 mg/3 mL) pen injector 1 mg subcut Q7D 90 Days Qty: 9 1RF Patient Comments: saturdays Rx Instructions: last filled 04/20 28 day supply cyanocobalamin (vitamin B-12) [Vitamin B-12] 1,000 mcg Tablet 1,000 mcg PO HS Changed pantoprazole 40 mg Tablet,Delayed Release (Dr/Ec) 40 mg PO BID Qty: 60 0RF atenolol 25 mg tablet 12.5 mg PO BID Qty: 30 0RF Rx Instructions: 12.5mg po bid. No fill history available unable to verify citalopram [Celexa] 20 mg tablet 20 mg PO HS Qty: 30 0RF Rx Instructions: 20mg po hs. No fill history available unable to verify Held losartan-hydrochlorothiazide 50-12.5 mg tablet 1 tab PO HS Hold Instructions: Resume on 08/08/24. Hold until your PCP says it is ok to restart it insulin glargine [Basaglar KwikPen U-100 Insulin] 100 unit/mL (3 mL) insulin pen 36 unit subcut HS Hold Instructions: Resume on 08/08/24. Hold until you are eating more regularly again ticagrelor [Brilinta] 90 mg Tablet 90 mg PO BID Hold Instructions: Resume on 08/05/24. Discontinued aspirin 81 mg tablet 81 mg PO QAM metoprolol tartrate 25 mg tablet 12.5 mg PO UD Rx Instructions: filled 07/17 90 day supply as 12.5mg po BID. oxycodone-acetaminophen [Percocet] 5-325 mg Tablet 1 - 2 tab PO Q4H PRN (Reason: pain) Qty: 12 0RF Rx Instructions: last filled 01/07 1 day supply Discharge Orders: Discharge Order (Routine); Ordered 08/03/24 Ordered By: Chary Ayoub Admission Data Admit Date/Time: 08/01/24 13:04 Attending Provider: Chary Ayoub Admit Provider: Chary Ayoub Primary Care Provider: Mahad Davis Other Providers: Chary Ayoub; Jeremiah Chavez Hospital Stay Data Consultations 08/01/24 12:07 ED Decision to Admit Stat 08/01/24 15:09 Consult Gastroenterology Routine Procedures Performed Operation Date: 08/02/24 16:30 Actual Procedures p EGD Hemostasis - Jeremiah Chavez MD Diagnostic Imagining Performed 08/01/24 10:29 CT facial bones wo con Stat CT head/brain wo con Stat Pending Results Patient Have Any Pending Studies at Discharge: No Discharge Instructions Given to Patient (Per Discharging Provider) You were admitted with bleeding from your intestine-this was cauterized during an EGD and resolved. Please DO NOT TAKE aspirin anymore. You can restart your Brilinta on Saturday 08/05 if no further bleeding. You were transfused 2 units of blood and given 2 bags of IV iron. You should take oral iron pills from over the counter to help build up your blood count. Have your PCP check your blood count next week to ensure it continues to rise up. If you start having looser, dark stools or feel lightheaded again or pass out, please come back to the hospital right away. You may need to have a video capsule endoscopy (swallow a tiny camera pill) in the future if your anemia is not improving. Total Time Total Time Spent Total Time Spent (In Minutes): 45 min Total Time Includes: Examination of the Patient, Discharge Planning, Medication Reconciliation and Communication With Other Providers (GI,Cardiology) Coding Level of Care Code 73091 INP/OBS DISCH >30 MIN Diagnoses Symptomatic anemia D64.9 CAD (coronary artery disease) I25.10 Syncope R55 Carotid artery disease I77.9
--- NOTE | 2024-08-03 14:14 | Electrocardiogram Report ---
Test Reason : Blood Pressure : */* mmHG Vent. Rate : 73 BPM Atrial Rate : 73 BPM P-R Int : 176 ms QRS Dur : 98 ms QT Int : 408 ms P-R-T Axes : 71 80 47 degrees QTcB Int : 449 ms Normal sinus rhythm Normal ECG Confirmed by Grey Hall ([id number] on 08/03/2024 2:14:16 PM Referred By: Ayesha Mosquera Confirmed By: Grey Hall
[2024-08-03 15:12] VITALS: PULSE 63
== END 2024-08-03 16:28 | disposition home or self-care (01) | DRG 378 ==
LOC: ED 10:00 → 2N 13:04